=== PATIENT | female | born 1990 | race Caucasian/White ===

== ENCOUNTER 2016-09-04 22:53 | Emergency (ER) | payer OTHER ==
[2016-09-04] MEDS ORDERED: Ondansetron INJ* 2 MG/ML VIAL IV ONE (23:33)
[2016-09-04] MEDS ORDERED: NS 0.9% 1000 ML* 1,000 ML IV ONE (23:33)
[2016-09-05 00:04] LABS: Hematocrit 38 % (35-47); Hemoglobin 13.3 g/dl (12.0-16.0); Mean Corpuscular HGB Conc 35 g/dl (31-36); Mean Corpuscular Hemoglobin 30 pg (27-31); Mean Corpuscular Volume 87 fL (80-97); Mean Platelet Volume 9 um3 (7.4-10.4); Red Cell Distribution Width 13 % (10.5-15); White Blood Count 7.8 10^3/ul (3.5-10.8)
[2016-09-05 00:32] LABS: ALT 28 U/L (7-52); AST 16 U/L (13-39); Albumin 4.1 g/dL (3.2-5.2); Alkaline Phosphatase 57 U/L (34-104); Anion Gap 7 mmol/L (2-11); BUN/Creatinine Ratio 21.6 (8-20); Blood Urea Nitrogen 16 mg/dL (6-24); C Reactive Protein < 1.00 mg/L (< 5.00); CO2 Carbon Dioxide 22 mmol/L (22-32); Calcium 9.1 mg/dL (8.6-10.3); Chloride 107 mmol/L (101-111); EGFR Non-African American 96.4 (>60); Globulin 2.1 g/dL (2-4); Glucose 96 mg/dL (70-100); Lipase 17 U/L (11.0-82.0); Potassium 3.6 mmol/L (3.5-5.0); Sodium 136 mmol/L (133-145); Total Protein 6.2 g/dL (6.4-8.9)
--- NOTE | 2016-09-05 00:49 | ED ---
Oswaldo Otto Erika, scribed for Toby Mathew MD on 09/04/16 at 2346 . HPI Chest Pain - HPI Summary HPI Summary: Patient is a 25-year-old female presenting to the ED with c/o lateral chest pain bilaterally for the past few days. Pt reports she took percocet for the pain, which she had been prescribed 2 weeks ago after concussion and headache. Pain is aggravated by deep breathing. Today, pt developed headache, epigastric pain, and nausea. At 22:00, pt began vomiting, and has vomited 4x since then. Pt denies known fever and diarrhea. She does report she had gastroenteritis last week. - History of Current Complaint Chief Complaint: EDAbdPain Time Seen by Provider: 09/04/16 23:29 Hx Obtained From: Patient, Family/Director Religious Education - Mother Onset/Duration: Started Days Ago, Atraumatic, Still Present Timing: Constant Current Severity: Moderate Pain Intensity: 8 Pain Scale Used: 0-10 Numeric Chest Pain Location: Left Lateral, Right Lateral Chest Pain Radiates: Yes Chest Pain Radiates To:: Epigastric Aggravating Factor(s): Deep Breaths Associated Signs and Symptoms: Positive: Headaches, Nausea, Vomiting - Additional Pertinent History Primary Care Physician: [id number] - Allergy/Home Medications Allergies/Adverse Reactions: Allergies Allergy/AdvReac Type Severity Reaction Status Date / Time CI Pigment Blue 63 Allergy Hives Verified 08/22/16 11:13 [From Tamiflu] Miconazole [From Monistat] Allergy Rash Verified 08/22/16 11:13 Oseltamivir [From Tamiflu] Allergy Hives Verified 08/22/16 11:13 keflex Allergy Hives Uncoded 08/22/16 11:13 PMH/Surg Hx/FS Hx/Imm Hx Endocrine/Hematology History: Denies: Hx Diabetes, Hx Thyroid Disease Cardiovascular History: Reports: Other Cardiovascular Problems/Disorders - murmer Denies: Hx Hypertension, Hx Pacemaker/ICD Respiratory History: Denies: Hx Asthma, Hx Chronic Obstructive Pulmonary Disease (COPD) GI History: Denies: Hx Ulcer History: Denies: Hx Renal Disease Musculoskeletal History: Denies: Hx Scoliosis Sensory History: Denies: Hx Hearing Aid Neurological History: Reports: Hx Seizures, Other Neuro Impairments/Disorders - brain tumor - has appointment for treatment 11/07/2015 Psychiatric History: Denies: Hx Anxiety, Hx Panic Disorder - Surgical History Surgery Procedure, Year, and Place: tonsillectomy, tumor removed from temporal lobe of brain (01/04/16) Infectious Disease History: No Infectious Disease History: Denies: Hx Clostridium Difficile, Hx Hepatitis, Hx Human Immunodeficiency Virus (HIV), Hx of Known/Suspected MRSA, Hx Shingles, Hx Tuberculosis, Traveled Outside the [place] in Last 30 Days - Family History Known Family History: Positive: Cardiac Disease, Hypertension, Diabetes, Other - Denies FHx of MRSA - Social History Alcohol Use: Occasionally Hx Substance Use: No Substance Use Type: Reports: None Hx Tobacco Use: Yes Smoking Status (MU): Former Smoker Type: Cigarettes Amount Used/How Often: 1 pk/wk Have You Smoked in the Last Year: Yes Review of Systems Negative: Fever Positive: Chest Pain Positive: Abdominal Pain, Vomiting, Nausea. Negative: Diarrhea Positive: Headache All Other Systems Reviewed And Are Negative: Yes Physical Exam Triage Information Reviewed: Yes Vital Signs On Initial Exam: Initial Vitals Temp Pulse Resp BP Pulse Ox 98.8 F 68 18 107/64 99 09/04/16 22:58 09/04/16 22:58 09/04/16 22:58 09/04/16 22:58 09/04/16 22:58 Vital Signs Reviewed: Yes Appearance: Positive: Well-Appearing, No Pain Distress Skin: Positive: Warm Head/Face: Positive: Normal Head/Face Inspection Eyes: Positive: Normal ENT: Positive: Hearing grossly normal Neck: Positive: Supple Respiratory/Lung Sounds: Positive: Clear to Auscultation, Breath Sounds Present Cardiovascular: Positive: Normal, RRR Abdomen Description: Positive: Nontender, Soft Bowel Sounds: Positive: Present Musculoskeletal: Positive: Strength/ROM Intact Neurological: Positive: Alert, Oriented to Person Place, Time Psychiatric: Positive: Normal Diagnostics - Vital Signs Vital Signs Temp Pulse Resp BP Pulse Ox 09/04/16 22:58 98.8 F 68 18 107/64 99 - Laboratory Lab Results: Lab Results 09/04/16 09/04/16 Range/Units 23:47 23:47 WBC 7.8 (3.5-10.8) 10^3/ul RBC 4.40 (4.0-5.4) 10^6/ul Hgb 13.3 (12.0-16.0) g/dl Hct 38 (35-47) % MCV 87 (80-97) fL MCH 30 (27-31) pg MCHC 35 (31-36) g/dl RDW 13 (10.5-15) % Plt Count 168 (150-450) 10^3/ul MPV 9 (7.4-10.4) um3 Neut % (Auto) 57.3 (38-83) % Lymph % (Auto) 29.7 (25-47) % [place] % (Auto) 7.1 (1-9) % Eos % (Auto) 5.1 (0-6) % Baso % (Auto) 0.8 (0-2) % Absolute Neuts (auto) 4.5 (1.5-7.7) 10^3/ul Absolute Lymphs (auto) 2.3 (1.0-4.8) 10^3/ul Absolute Monos (auto) 0.6 (0-0.8) 10^3/ul Absolute Eos (auto) 0.4 (0-0.6) 10^3/ul Absolute Basos (auto) 0.1 (0-0.2) 10^3/ul Absolute Nucleated RBC 0 10^3/ul Nucleated RBC % 0 Sodium 136 (133-145) mmol/L Potassium 3.6 (3.5-5.0) mmol/L Chloride 107 (101-111) mmol/L Carbon Dioxide 22 (22-32) mmol/L Anion Gap 7 (2-11) mmol/L BUN 16 (6-24) mg/dL Creatinine 0.74 (0.51-0.95) mg/dL Est GFR ( Amer) 124.0 (>60) Est GFR (Non-Af Amer) 96.4 (>60) BUN/Creatinine Ratio 21.6 H (8-20) Glucose 96 (70-100) mg/dL Calcium 9.1 (8.6-10.3) mg/dL Magnesium 2.0 (1.9-2.7) mg/dL Total Bilirubin 0.30 (0.2-1.0) mg/dL AST 16 (13-39) U/L ALT 28 (7-52) U/L Alkaline Phosphatase 57 (34-104) U/L C-Reactive Protein < 1.00 (< 5.00) mg/L Total Protein 6.2 L (6.4-8.9) g/dL Albumin 4.1 (3.2-5.2) g/dL Globulin 2.1 (2-4) g/dL Albumin/Globulin Ratio 2.0 (1-3) Lipase 17 (11.0-82.0) U/L Beta HCG, Quant < 0.60 mIU/mL Result Diagrams: 09/04/16 23:47 09/04/16 23:47 Lab Statement: Any lab studies that have been ordered have been reviewed, and results considered in the medical decision making process. Re-Evaluation - Re-Evaluation First Eval Re-Evaluation Time: 00:48 Change: Improved Chest Pain Course/Dx - Course Assessment/Plan: A 25 y/o F presents to the ED with a CC of vomiting and abdominal pain. Pt was given zofran and IV fluids in the ED, and feels improved. Pt will be discharged with follow up from her PCP - Diagnoses Provider Diagnoses: Vomiting Discharge - Discharge Plan Condition: Improved Disposition: HOME Patient Education Materials: Acute Nausea and Vomiting (ED) Referrals: Marielle Turner DO [Primary Care Provider] - The documentation as recorded by the Oswaldo gracia Erika accurately reflects the service I personally performed and the decisions made by , Toby Mathew MD.
[2016-09-05 02:39] VITALS: BP 94/48
== END 2016-09-05 02:39 | disposition home or self-care (01) ==
LOC: ED 22:53
DX: R11.2 Nausea with vomiting, unspecified (principal); R07.9 Chest pain, unspecified; R51 Headache; Z87.891 Personal history of nicotine dependence; R10.9 Unspecified abdominal pain
CPT/HCPCS: 36415; 80053; 83690; 83735; 84702; 85025; 86140; 99283; J2405

== ENCOUNTER 2016-10-25 21:22 | Emergency (ER) | payer OTHER ==
[2016-10-25 21:30] VITALS: BP 120/68
== END 2016-10-25 22:43 | disposition left against medical advice (07) ==
LOC: ED 21:22
DX: T78.40XA Allergy, unspecified, initial encounter (principal); X58.XXXA Exposure to other specified factors, initial encounter; Z53.21 Procedure and treatment not carried out due to patient leaving prior to being seen by health care provider

== ENCOUNTER 2016-11-02 10:04 | Emergency (ER) | payer OTHER ==
[2016-11-02] MEDS ORDERED: Ondansetron INJ* 2 MG/ML VIAL IV ONE (10:37)
[2016-11-02] MEDS ORDERED: NS 0.9% 1000 ML* 1,000 ML IV ONE (10:37)
[2016-11-02] MEDS ORDERED: Morphine INJ* 4 MG/ML 1 ML SYRINGE IV ONE (10:37)
[2016-11-02 11:01] LABS: Hematocrit 41 % (35-47); Hemoglobin 14.3 g/dl (12.0-16.0); Mean Corpuscular HGB Conc 35 g/dl (31-36); Mean Corpuscular Hemoglobin 31 pg (27-31); Mean Corpuscular Volume 90 fL (80-97); Mean Platelet Volume 9 um3 (7.4-10.4); Red Blood Count 4.58 10^6/ul (4.0-5.4); Red Cell Distribution Width 12 % (10.5-15); White Blood Count 5.1 10^3/ul (3.5-10.8)
[2016-11-02 11:06] LABS: Urine Bilirubin Negative (Negative); Urine Glucose Negative (Negative); Urine Nitrite Negative (Negative)
[2016-11-02 11:19] LABS: ALT 11 U/L (7-52); AST 11 U/L (13-39); Albumin 4.7 g/dL (3.2-5.2); Alkaline Phosphatase 49 U/L (34-104); Amylase 30 U/L (29-103); Anion Gap 9 mmol/L (2-11); BUN/Creatinine Ratio 15.8 (8-20); Blood Urea Nitrogen 12 mg/dL (6-24); C Reactive Protein < 1.00 mg/L (< 5.00); CO2 Carbon Dioxide 23 mmol/L (22-32); Chloride 107 mmol/L (101-111); EGFR African American 119.3 (>60); EGFR Non-African American 92.7 (>60); Globulin 2.5 g/dL (2-4); Glucose 88 mg/dL (70-100); Lipase 11 U/L (11.0-82.0); Potassium 3.6 mmol/L (3.5-5.0); Sodium 139 mmol/L (133-145); Total Protein 7.2 g/dL (6.4-8.9)
[2016-11-02] MEDS ORDERED: Iohexol 300* (CONTRAST) 10 ML SDV IV ONE (11:58)
[2016-11-02] MEDS ORDERED: Ketorolac INJ* 30 MG/ML 1 ML VIAL IM ONE (14:31)
[2016-11-02] MEDS ORDERED: Ketorolac INJ* 30 MG/ML 1 ML VIAL IV PUSH ONE (14:35)
--- NOTE | 2016-11-02 14:58 | RAD ---
INDICATION: Abdominal pain COMPARISON: CT abdomen pelvis January 01, 2014 TECHNIQUE: Axial source images were obtained from the hemidiaphragms to the symphysis pubis following administration of oral and intravenous contrast. 81 mL Omnipaque 300 was utilized. Coronal and sagittal reconstructed images were acquired. Lung bases: The lung bases are clear. Liver: The liver is normal in size. There are no masses. There is no ductal dilatation. Gallbladder: There are no calcified gallstones. There is no evidence of wall thickening or pericholecystic fluid. Spleen: The spleen is normal in size. There are no masses. Pancreas: There is no focal pancreatic mass or ductal dilatation. Adrenal glands: There is no evidence of adrenal mass. Kidneys: The kidneys are normal in size and position. There are prompt nephrograms and there is prompt excretion bilaterally. There are no renal parenchymal masses. There is no evidence of nephrolithiasis. Adenopathy: There is no evidence of adenopathy by size criteria. Fluid collections: There are no free or localized fluid collections. Vessels:There are no significant atherosclerotic changes involving the aorta. There is no focal aneurysm. The iliac vessels are normal in caliber. The IVC appears normal. GI tract: There are no acute CT bowel findings. There is no obstruction. The stomach and small bowel appear normal. The lower GI tract is remarkable for scattered diverticula. There is no CT evidence of acute diverticulitis.. The cecum, ileocecal valve, and terminal ileum appear normal. The appendix is visualized and appear normal. Pelvic organs: The uterus and adnexa appear normal Bladder: There are no bladder masses. Abdominal and pelvic soft tissues: The extraperitoneal abdominal and pelvic soft tissues appear normal.. Osseous structures: There are no acute osseous findings. Other: None IMPRESSION: NO ACUTE CT FINDINGS. NO MASS OR INFLAMMATORY CHANGE. SCATTERED DIVERTICULA. NORMAL APPENDIX.
[2016-11-02 16:40] VITALS: BP 96/54
--- NOTE | 2016-11-18 20:50 | ED ---
Noah Otto Adam, scribed for Sebastien Coreas MD on 11/02/16 at 1019 . Abdominal Pain/Female - HPI Summary HPI Summary: Pt is a 26 year old female presenting with abdominal pain. She states that the pain radiates from her umbilicus to her right side. It is worse when she straightens out her body, which causes her to feel like "someone is pulling a string" in her central abdomen. The pain set on last night and was worse this morning. It is 9/10 in severity. She has never had this pain before. She also reports nausea, vomiting, and watery diarrhea. Pt smokes tobacco. She denies alcohol and drugs. 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 She is not on blood-thinners. She is currently in her MP. - History of Current Complaint Chief Complaint: EDAbdPain Stated Complaint: ABD PAIN/VOMITING Time Seen by Provider: 11/02/16 10:17 Hx Obtained From: Patient Hx Last Menstrual Period: Currently in it (11/02/16) Onset/Duration: Gradual Onset, Lasting Days, Still Present Timing: Constant Severity Initially: Mild Severity Currently: Moderate Pain Intensity: 9 Pain Scale Used: 0-10 Numeric Location: Umbilical Radiates: Yes Radiates to: Flank - Right Character: Other: - "Feels like someone pulling a string" Aggravating Factor(s): Other: - Straightening body out Alleviating Factor(s): Nothing Associated Signs and Symptoms: Positive: Nausea, Vomiting, Diarrhea Allergies/Adverse Reactions: Allergies Allergy/AdvReac Type Severity Reaction Status Date / Time Amoxicillin Allergy Hives Verified 11/02/16 10:26 CI Pigment Blue 63 Allergy Hives Verified 11/02/16 10:26 [From Tamiflu] Miconazole [From Monistat] Allergy Rash Verified 11/02/16 10:26 Oseltamivir [From Tamiflu] Allergy Hives Verified 11/02/16 10:26 keflex Allergy Hives Uncoded 11/02/16 10:26 PMH/Surg Hx/FS Hx/Imm Hx Endocrine/Hematology History: Denies: Hx Diabetes, Hx Thyroid Disease Cardiovascular History: Reports: Other Cardiovascular Problems/Disorders - murmur Denies: Hx Hypertension, Hx Pacemaker/ICD Respiratory History: Denies: Hx Asthma, Hx Chronic Obstructive Pulmonary Disease (COPD) GI History: Denies: Hx Ulcer History: Denies: Hx Renal Disease Musculoskeletal History: Denies: Hx Scoliosis Sensory History: Denies: Hx Hearing Aid Neurological History: Reports: Hx Seizures, Other Neuro Impairments/Disorders - brain tumor - has appointment for treatment 11/07/2015 Psychiatric History: Denies: Hx Anxiety, Hx Panic Disorder - Cancer History Cancer Type, 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 - Surgical History Surgery Procedure, Year, and Place: tonsillectomy, tumor removed from temporal lobe of brain (01/04/16) Infectious Disease History: No Infectious Disease History: Denies: Hx Clostridium Difficile, Hx Hepatitis, Hx Human Immunodeficiency Virus (HIV), Hx of Known/Suspected MRSA, Hx Shingles, Hx Tuberculosis, Traveled Outside the [place] in Last 30 Days - Family History Known Family History: Positive: Cardiac Disease, Hypertension, Diabetes, Other - Denies FHx of MRSA - Social History Occupation: Employed Full-time Lives: With Family - Mother Alcohol Use: None Hx Substance Use: No Substance Use Type: Reports: None Hx Tobacco Use: Yes Smoking Status (MU): Current Every Day Smoker Type: Cigarettes Amount Used/How Often: 1 pk/wk Have You Smoked in the Last Year: Yes Review of Systems Positive: Chills Positive: Abdominal Pain, Vomiting, Diarrhea, Nausea Positive: frequency All Other Systems Reviewed And Are Negative: Yes Physical Exam - Summary Physical Exam Summary: VITAL SIGNS: Reviewed. GENERAL: Patient is a well developed and nourished female who is lying comfortable in the stretcher. Patient is not in any acute respiratory distress. HEAD AND FACE: Normocephalic and atraumatic. EYES: PERRLA, EOMI x 2, No injected conjunctiva. EARS: Hearing grossly intact. Ear canals and tympanic membranes are WNL. MOUTH: Oropharynx within normal limits. NECK: Supple, trachea is midline, no adenopathy, no JVD. CHEST: Symmetric, no tenderness at palpation LUNGS: Clear to auscultation bilaterally. No wheezing or crackles. CVS: RRR,, S1 and S2 present, no murmurs or gallops appreciated. ABDOMEN: Soft, RLQ tenderness. No signs of distention. Positive bowel sounds. No rebound no guarding, and no masses palpated. No abdominal bruit or pulsations. EXTREMITIES: FROM in all major joints, no edema, no cyanosis or clubbing. NEURO: Alert and oriented x 3. No acute neurological deficits. Speech is normal. SKIN: Dry and warm Triage Information Reviewed: Yes Vital Signs On Initial Exam: Initial Vitals Temp Pulse Resp BP Pulse Ox 99.8 F 85 20 114/79 100 11/02/16 10:08 11/02/16 10:08 11/02/16 10:08 11/02/16 10:08 11/02/16 10:08 Vital Signs Reviewed: Yes Diagnostics - Vital Signs Vital Signs Temp Pulse Resp BP Pulse Ox 11/02/16 10:08 99.8 F 85 20 114/79 100 - Laboratory Lab Results: Lab Results 11/02/16 11/02/16 Range/Units 10:33 10:39 WBC 5.1 (3.5-10.8) 10^3/ul RBC 4.58 (4.0-5.4) 10^6/ul Hgb 14.3 (12.0-16.0) g/dl Hct 41 (35-47) % MCV 90 (80-97) fL MCH 31 (27-31) pg MCHC 35 (31-36) g/dl RDW 12 (10.5-15) % Plt Count 148 L (150-450) 10^3/ul MPV 9 (7.4-10.4) um3 Neut % (Auto) 62.6 (38-83) % Lymph % (Auto) 25.7 (25-47) % [place] % (Auto) 7.3 (1-9) % Eos % (Auto) 3.7 (0-6) % Baso % (Auto) 0.7 (0-2) % Absolute Neuts (auto) 3.2 (1.5-7.7) 10^3/ul Absolute Lymphs (auto) 1.3 (1.0-4.8) 10^3/ul Absolute Monos (auto) 0.4 (0-0.8) 10^3/ul Absolute Eos (auto) 0.2 (0-0.6) 10^3/ul Absolute Basos (auto) 0 (0-0.2) 10^3/ul Absolute Nucleated RBC 0 10^3/ul Nucleated RBC % 0.1 Urine Color Straw Urine Appearance Clear Urine pH 7.0 (5-9) Ur Specific [place] 1.005 L (1.010-1.030) Urine Protein Negative (Negative) Urine Ketones Negative (Negative) Urine Blood Negative (Negative) Urine Nitrate Negative (Negative) Urine Bilirubin Negative (Negative) Urine Urobilinogen Negative (Negative) Ur Leukocyte Esterase Negative (Negative) Urine Glucose Negative (Negative) Result Diagrams: 11/02/16 10:33 11/02/16 10:33 Lab Statement: Any lab studies that have been ordered have been reviewed, and results considered in the medical decision making process. - CT A/P CT Interpretation Completed By: Radiologist - IMPRESSION: NO ACUTE CT FINDINGS. NO MASS OR INFLAMMATORY CHANGE. SCATTERED DIVERTICULA. NORMAL APPENDIX. Abdominal Pain Fem Course/Dx - Course Course Of Treatment: Pt is a 26 year old female presenting with abdominal pain. She states that the pain radiates from her umbilicus to her right side. It is worse when she straightens out her body, which causes her to feel like "someone is pulling a string" in her central abdomen. The pain set on last night and was worse this morning. It is 9/10 in severity. She has never had this pain before. She also reports nausea, vomiting, and watery diarrhea. Pt smokes tobacco. She denies alcohol and drugs. 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 She is not on blood-thinners. She is currently in her MP. Blood work wnl. UA shows no UTI. Abdominal and pelvic CT impression: No acute findings, no masses or inflammatory findings. Scattered diverticula. Normal appendix. In the ED course she was given IV fluids, morphine and toradol for the pain. After medications patient reports improvement of symptoms. She was offered a pelvic exam or pelvic U/S but she declined. She reports she is feeling better and will f/u with PMD. She will be given Naproxen for pain. I discussed all the findings and test results with the patient. Patient was instructed to return to the emergency room immediately if any of the symptoms return or worsens. They were explained the possibility of an early abdominal pathology which was not detected at this time despite the physical exam and testing. They understand and agree. Abdominal exam before discharge: Soft, NT. No signs of distention. BS present. No rebound no guarding, and no masses palpated. Patient is alert and oriented and hemodynamically stable. Patient is to follow up with primary care physician in the next 2 to 3 days. Patient agree and understands. - Diagnoses Differential Diagnosis: Positive: Appendicitis, Constipation, Diverticulitis, Ovarian Cyst, Renal Colic Provider Diagnoses: Abdominal pain Discharge - Discharge Plan Condition: Stable Disposition: HOME Prescriptions: Naproxen TAB* [Naprosyn TAB*] 375 mg PO BID PRN #20 tab PRN Reason: Pain - Mild To Moderate Patient Education Materials: Abdominal Pain (ED) Referrals: Meryl Cadena [Primary Care Provider] - Additional Instructions: Follow up with Meryl Cadena. The documentation as recorded by the Noah gracia Adam accurately reflects the service I personally performed and the decisions made by , Sebastien Coreas MD.
== END 2016-11-02 16:40 | disposition home or self-care (01) ==
LOC: ED 10:04
DX: R10.9 Unspecified abdominal pain (principal); R11.2 Nausea with vomiting, unspecified; R19.7 Diarrhea, unspecified; Z87.891 Personal history of nicotine dependence; R68.83 Chills (without fever)
CPT/HCPCS: 36415; 74177; 80053; 81003; 82140; 82150; 83605; 83690; 84702; 85025; 86140; 99283; J1885; J2270; J2405; Q9967

== ENCOUNTER 2016-12-17 17:56 | Emergency (ER) | payer OTHER ==
[2016-12-17] MEDS ORDERED: Aspirin Low Dose CHEW TAB* 81 MG PO ONE (18:49)
[2016-12-17 18:56] LABS: Hematocrit 42 % (35-47); Hemoglobin 14.6 g/dl (12.0-16.0); Mean Corpuscular HGB Conc 35 g/dl (31-36); Mean Corpuscular Hemoglobin 31 pg (27-31); Mean Corpuscular Volume 89 fL (80-97); Mean Platelet Volume 9 um3 (7.4-10.4); Red Blood Count 4.72 10^6/ul (4.0-5.4); Red Cell Distribution Width 13 % (10.5-15); White Blood Count 7.4 10^3/ul (3.5-10.8)
[2016-12-17 19:12] LABS: ALT 18 U/L (7-52); AST 13 U/L (13-39); Albumin 4.6 g/dL (3.2-5.2); Alkaline Phosphatase 57 U/L (34-104); Anion Gap 8 mmol/L (2-11); BUN/Creatinine Ratio 14.4 (8-20); Blood Urea Nitrogen 13 mg/dL (6-24); CO2 Carbon Dioxide 22 mmol/L (22-32); Calcium 9.6 mg/dL (8.6-10.3); Chloride 109 mmol/L (101-111); EGFR African American 98.1 (>60); EGFR Non-African American 76.3 (>60); Globulin 2.5 g/dL (2-4); Glucose 76 mg/dL (70-100); Potassium 3.4 mmol/L (3.5-5.0); Sodium 139 mmol/L (133-145); Total Protein 7.1 g/dL (6.4-8.9)
[2016-12-17] MEDS ORDERED: Iohexol 350* (CONTRAST) 500 ML MDV IV ONE (19:22)
[2016-12-17 19:58] VITALS: BP 92/66
--- NOTE | 2016-12-17 20:04 | RAD ---
HISTORY: Pleuritic chest pain COMPARISONS: September 30, 2011 TECHNIQUE: Multiple contiguous axial CT scans of the chest were obtained after the administration of nonionic intravenous contrast, timed to the pulmonary arterial phase of contrast enhancement.. Coronal and sagittal multiplanar reformations are also submitted for review. FINDINGS: NECK AND THYROID: The lower neck and thyroid are unremarkable. CHEST WALL: There is no lower cervical, axillary, or supraclavicular lymphadenopathy by size criteria. HEART AND PERICARDIUM: The heart is unremarkable. AORTA AND PULMONARY VASCULATURE: There is no pulmonary arterial filling defect to suggest pulmonary embolism. There is no linear filling defect within the aorta to suggest aortic dissection. MEDIASTINUM: There is no mediastinal lymphadenopathy by size criteria. FREDY: There is no hilar lymphadenopathy by size criteria. AIRWAY AND ESOPHAGUS: The airway is unremarkable, without endobronchial filling defect. The esophagus is grossly normal. LUNG PARENCHYMA: The lungs are clear. PLEURA: No pleural abnormalities are noted. UPPER ABDOMEN: The upper abdomen is unremarkable. BONES AND SOFT TISSUES: No bone or soft tissue abnormalities are noted. OTHER: None. IMPRESSION: NO PULMONARY ARTERIAL FILLING DEFECT TO SUGGEST PULMONARY EMBOLISM.
--- NOTE | 2016-12-17 21:36 | ED ---
Maira Otto Janilya, scribed for Eliud Asher MD on 12/17/16 at 1844 . HPI Chest Pain - HPI Summary HPI Summary: A 26 y/o female came in to [facility] presenting w/ a gradual onset of constant mid- sternal CP starting last night at 2100. Pain is described as sharp and stabbing pain. In addition, pt reports BENNETT and SOB. Pt states it hurts to take a breath and it feels like an anxiety attack. It hurts to move her arms. PSHx brain tumor removed last year. - History of Current Complaint Chief Complaint: EDChestPainROMI Time Seen by Provider: 12/17/16 18:36 Hx Obtained From: Patient Onset/Duration: Started Days Ago, Atraumatic, Still Present Timing: Constant Initial Severity: Moderate Current Severity: Moderate Pain Intensity: 8 Pain Scale Used: 0-10 Numeric Chest Pain Location: Diffuse Chest Pain Radiates: No Character: Sharp/Stabbing Aggravating Factor(s): Nothing Alleviating Factor(s): Nothing Associated Signs and Symptoms: Positive: Chest Pain, Shortness of Breath - Additional Pertinent History Primary Care Physician: [id number] - Allergy/Home Medications Allergies/Adverse Reactions: Allergies Allergy/AdvReac Type Severity Reaction Status Date / Time Amoxicillin Allergy Hives Verified 12/17/16 18:27 CI Pigment Blue 63 Allergy Hives Verified 12/17/16 18:27 [From Tamiflu] Miconazole [From Monistat] Allergy Rash Verified 12/17/16 18:27 Oseltamivir [From Tamiflu] Allergy Hives Verified 12/17/16 18:27 keflex Allergy Hives Uncoded 12/17/16 18:27 PMH/Surg Hx/FS Hx/Imm Hx Previously Healthy: Yes Endocrine/Hematology History: Denies: Hx Diabetes, Hx Thyroid Disease Cardiovascular History: Reports: Other Cardiovascular Problems/Disorders - murmur Denies: Hx Hypertension, Hx Pacemaker/ICD Respiratory History: Denies: Hx Asthma, Hx Chronic Obstructive Pulmonary Disease (COPD) GI History: Denies: Hx Ulcer History: Denies: Hx Renal Disease Musculoskeletal History: Denies: Hx Scoliosis Sensory History: Denies: Hx Hearing Aid Neurological History: Reports: Hx Seizures, Other Neuro Impairments/Disorders - brain tumor - has appointment for treatment 11/07/2015 Psychiatric History: Denies: Hx Anxiety, Hx Panic Disorder - Cancer History Cancer Type, 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 - Surgical History Surgery Procedure, Year, and Place: tonsillectomy, tumor removed from temporal lobe of brain (01/04/16) Infectious Disease History: Yes Infectious Disease History: Denies: Hx Clostridium Difficile, Hx Hepatitis, Hx Human Immunodeficiency Virus (HIV), Hx of Known/Suspected MRSA, Hx Shingles, Hx Tuberculosis, Traveled Outside the [place] in Last 30 Days - Family History Known Family History: Positive: Cardiac Disease, Hypertension, Diabetes, Other - Denies FHx of MRSA - Social History Alcohol Use: None Hx Substance Use: No Substance Use Type: Reports: None Hx Tobacco Use: Yes Smoking Status (MU): Current Every Day Smoker Type: Cigarettes Amount Used/How Often: 1 pk/wk Have You Smoked in the Last Year: Yes Review of Systems Positive: Chest Pain Positive: Shortness Of Breath Positive: Headache All Other Systems Reviewed And Are Negative: Yes Physical Exam Triage Information Reviewed: Yes Vital Signs On Initial Exam: Initial Vitals Temp Pulse Resp BP Pulse Ox 98.2 F 91 16 121/69 100 12/17/16 18:01 12/17/16 18:01 12/17/16 18:01 12/17/16 18:01 12/17/16 18:01 Vital Signs Reviewed: Yes Appearance: Positive: Well-Appearing, No Pain Distress Skin: Positive: Warm, Skin Color Reflects Adequate Perfusion, Dry Head/Face: Positive: Normal Head/Face Inspection Eyes: Positive: Normal ENT: Positive: Normal ENT inspection Neck: Positive: Supple, Nontender Respiratory/Lung Sounds: Positive: Clear to Auscultation, Breath Sounds Present Cardiovascular: Positive: RRR Abdomen Description: Positive: Nontender, Soft Bowel Sounds: Positive: Present Musculoskeletal: Positive: Normal Neurological: Positive: Normal Psychiatric: Positive: Affect/Mood Appropriate Diagnostics - Vital Signs Vital Signs Temp Pulse Resp BP Pulse Ox 12/17/16 18:28 98.2 F 87 20 119/63 99 12/17/16 18:01 98.2 F 91 16 121/69 100 - Laboratory Lab Results: Lab Results 12/17/16 12/17/16 12/17/16 Range/Units 18:40 18:40 18:40 WBC 7.4 (3.5-10.8) 10^3/ul RBC 4.72 (4.0-5.4) 10^6/ul Hgb 14.6 (12.0-16.0) g/dl Hct 42 (35-47) % MCV 89 (80-97) fL MCH 31 (27-31) pg MCHC 35 (31-36) g/dl RDW 13 (10.5-15) % Plt Count 182 (150-450) 10^3/ul MPV 9 (7.4-10.4) um3 Neut % (Auto) 53.3 (38-83) % Lymph % (Auto) 31.6 (25-47) % Crenshaw % (Auto) 8.0 (1-9) % Eos % (Auto) 6.1 H (0-6) % Baso % (Auto) 1.0 (0-2) % Absolute Neuts (auto) 3.9 (1.5-7.7) 10^3/ul Absolute Lymphs (auto) 2.3 (1.0-4.8) 10^3/ul Absolute Monos (auto) 0.6 (0-0.8) 10^3/ul Absolute Eos (auto) 0.5 (0-0.6) 10^3/ul Absolute Basos (auto) 0.1 (0-0.2) 10^3/ul Absolute Nucleated RBC 0.01 10^3/ul Nucleated RBC % 0.1 Sodium 139 (133-145) mmol/L Potassium 3.4 L (3.5-5.0) mmol/L Chloride 109 (101-111) mmol/L Carbon Dioxide 22 (22-32) mmol/L Anion Gap 8 (2-11) mmol/L BUN 13 (6-24) mg/dL Creatinine 0.90 (0.51-0.95) mg/dL Est GFR ( Amer) 98.1 (>60) Est GFR (Non-Af Amer) 76.3 (>60) BUN/Creatinine Ratio 14.4 (8-20) Glucose 76 (70-100) mg/dL Lactic Acid 1.1 (0.5-2.0) mmol/L Calcium 9.6 (8.6-10.3) mg/dL Total Bilirubin 0.50 (0.2-1.0) mg/dL AST 13 (13-39) U/L ALT 18 (7-52) U/L Alkaline Phosphatase 57 (34-104) U/L Troponin I 0.00 (<0.04) ng/mL Total Protein 7.1 (6.4-8.9) g/dL Albumin 4.6 (3.2-5.2) g/dL Globulin 2.5 (2-4) g/dL Albumin/Globulin Ratio 1.8 (1-3) Beta HCG, Quant < 0.60 mIU/mL Result Diagrams: 12/17/16 18:40 12/17/16 18:40 Lab Statement: Any lab studies that have been ordered have been reviewed, and results considered in the medical decision making process. - CT CTA chest/thorax CT Interpretation: Positive (See Comments) - IMPRESSION: NO PULMONARY ARTERIAL FILLING DEFECT TO SUGGEST PULMONARY EMBOLISM. CT Interpretation Completed By: Radiologist - EKG 1809 Cardiac Rate: NL - [address] Segment: Non-Specific EKG Interpretation: Arrhythmia Chest Pain Course/Dx - Course Course Of Treatment: Ms. Watt presented with about 22 hours of sharp midsternal chest pain. She was R/U'd for PE or cardiac injury. - Diagnoses Provider Diagnoses: Chest wall pain Discharge - Discharge Plan Condition: Stable Disposition: HOME Patient Education Materials: Chest Wall Pain (ED) Referrals: Meryl Cadena [Primary Care Provider] - 2 Days The documentation as recorded by the Maira gracia Janilya accurately reflects the service I personally performed and the decisions made by me, Eliud Asher MD.
== END 2016-12-17 20:56 | disposition home or self-care (01) ==
LOC: ED 17:56
DX: R07.89 Other chest pain (principal); R06.02 Shortness of breath
CPT/HCPCS: 36415; 71275; 80053; 83605; 84484; 84702; 85025; 93005; 99282; Q9967

== ENCOUNTER 2017-07-30 11:34 | Emergency (ER) | payer OTHER ==
[2017-07-30 11:46] VITALS: BP 123/73
--- NOTE | 2017-07-30 13:08 | RAD ---
Indication: Head injury. CT of the brain was performed without IV contrast. Comparison is made with previous exam dated August 22, 2016. Ventricular structures are midline. No midline shift is noted. Patient status post left craniotomy. Left temporal lobe encephalomalacia is unchanged from previous exam. No intracranial mass or hemorrhage is otherwise noted. IMPRESSION: No acute changes are noted. Encephalomalacia in the left temporal lobe from left craniotomy. This is stable since prior exam.
--- NOTE | 2017-07-30 14:40 | ED ---
Head Injury - HPI Summary HPI Summary: Patient presents to the ED with CC of BENNETT and concern for intracranial abnormality after hitting her head on a metal bar prior to arriva. Denies LOC. Denies confusion. Notes to a 5/10 BENNETT located to the left side. There is a cephalohematoma noted to the left side. She has previous had a tumor removed with a left temporal craniotomy. She denies visual changes, N/V, SOB, chest pain. Denies photophobia. - History Of Current Complaint Chief Complaint: EDHeadInjury Stated Complaint: HEAD INJURY/HEADACHE/NAUSEA Time Seen by Provider: 07/30/17 11:49 Hx Obtained From: Patient Hx Last Menstrual Period: Currently in it (11/02/16) Mechanism Of Injury: Blunt Trauma Onset/Duration: Started Hours Ago Onset of Pain: Immediate Severity Currently: Mild Severity Initially: Mild Pain Intensity: 9 Pain Scale Used: 0-10 Numeric Location of Head Injury: Temporal, Parietal Character: Throbbing, Pressure Aggravating Factor(s): Movement Alleviating Factor(s): Rest, Ice - Allergies/Home Medications Allergies/Adverse Reactions: Allergies Allergy/AdvReac Type Severity Reaction Status Date / Time Amoxicillin Allergy Hives Verified 12/17/16 18:27 CI Pigment Blue 63 Allergy Hives Verified 12/17/16 18:27 [From Tamiflu] Miconazole [From Monistat] Allergy Rash Verified 12/17/16 18:27 Oseltamivir [From Tamiflu] Allergy Hives Verified 12/17/16 18:27 keflex Allergy Hives Uncoded 12/17/16 18:27 PMH/Surg Hx/FS Hx/Imm Hx Previously Healthy: Yes Endocrine/Hematology History: Denies: Hx Diabetes, Hx Thyroid Disease Cardiovascular History: Reports: Other Cardiovascular Problems/Disorders - murmur Denies: Hx Hypertension, Hx Pacemaker/ICD Respiratory History: Denies: Hx Asthma, Hx Chronic Obstructive Pulmonary Disease (COPD) GI History: Denies: Hx Ulcer History: Denies: Hx Renal Disease Musculoskeletal History: Denies: Hx Scoliosis Sensory History: Denies: Hx Hearing Aid Neurological History: Reports: Hx Seizures, Other Neuro Impairments/Disorders - brain tumor - has appointment for treatment 11/07/2015 Psychiatric History: Denies: Hx Anxiety, Hx Panic Disorder - Cancer History Cancer Type, 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 - Surgical History Surgery Procedure, Year, and Place: tonsillectomy, tumor removed from temporal lobe of brain (01/04/16) - Immunization History Hx Pertussis Vaccination: No Immunizations Up to Date: Unable to Obtain/Confirm Infectious Disease History: No Infectious Disease History: Denies: Hx Clostridium Difficile, Hx Hepatitis, Hx Human Immunodeficiency Virus (HIV), Hx of Known/Suspected MRSA, Hx Shingles, Hx Tuberculosis, Traveled Outside the [place] in Last 30 Days - Family History Known Family History: Positive: None, Cardiac Disease, Hypertension, Diabetes, Other - Denies FHx of MRSA - Social History Occupation: Employed Full-time Lives: With Family Alcohol Use: None Hx Substance Use: No Substance Use Type: Reports: None Hx Tobacco Use: Yes Smoking Status (MU): Current Every Day Smoker Type: Cigarettes Amount Used/How Often: 1 pk/wk Have You Smoked in the Last Year: Yes Review of Systems Constitutional: Negative Negative: Fever, Chills, Fatigue Eyes: Negative Negative: Photophobia, Blurred Vision, Diplopia, Drainage ENT: Negative Respiratory: Negative Gastrointestinal: Negative Positive: no symptoms reported, see HPI Musculoskeletal: Negative Skin: Negative Positive: Headache All Other Systems Reviewed And Are Negative: Yes Physical Exam Triage Information Reviewed: Yes Vital Signs On Initial Exam: Initial Vitals Temp Pulse Resp BP Pulse Ox 99.2 F 95 18 123/73 99 07/30/17 11:43 07/30/17 11:43 07/30/17 11:43 07/30/17 11:43 07/30/17 11:43 Vital Signs Reviewed: Yes Appearance: Positive: Well-Appearing, Well-Nourished Skin: Positive: Warm, Skin Color Reflects Adequate Perfusion Head/Face: Positive: Cephalohematoma - left parietal Eyes: Positive: EOMI, SHELDON, Conjunctiva Clear Neck: Positive: Supple, No Lymphadenopathy Respiratory/Lung Sounds: Positive: Clear to Auscultation, Breath Sounds Present Cardiovascular: Positive: RRR, Pulses are Symmetrical in both Upper and Lower Extremities Musculoskeletal: Positive: Normal, Strength/ROM Intact Neurological: Positive: Speech Normal. Negative: Pronator Drift Present Psychiatric: Positive: Normal AVPU Assessment: Alert - Isha Coma Scale Coma Scale Total: 15 Diagnostics - Vital Signs Vital Signs Temp Pulse Resp BP Pulse Ox 07/30/17 11:43 99.2 F 95 18 123/73 99 - Laboratory Lab Statement: Any lab studies that have been ordered have been reviewed, and results considered in the medical decision making process. Head Injury Course/Dx Course Of Treatment: After discussing risks and benefits of CT scan, d/t history of craniotomy on the ispilateral side of the head injury, CT scan obtained. No pathology found. She has a MRI appt in 1 month and I have encouraged her to follow up with her neurologist. Brain rest precautions given and she is OK with plan and discharge and voices no concerns at this time. - Diagnoses Differential Diagnosis/HQI/PQRI: Concussion With LOC, Concussion Without LOC, Contusion Provider Diagnoses: Head injury Discharge - Discharge Plan Condition: Stable Disposition: HOME Patient Education Materials: Head Injury (ED) Referrals: Meryl Cadena [Primary Care Provider] - Additional Instructions: Brain rest as much as possible for the next few days If any worsening symptoms develop - return to the ED Tylenol or ibuprofen the next few days Rest and sleep as much as possible
== END 2017-07-30 13:39 | disposition home or self-care (01) ==
LOC: ED 11:34
DX: S09.90XA Unspecified injury of head, initial encounter (principal); W22.8XXA Striking against or struck by other objects, initial encounter; Y93.9 Activity, unspecified; Y92.9 Unspecified place or not applicable; F17.210 Nicotine dependence, cigarettes, uncomplicated; R51 Headache
CPT/HCPCS: 70450; 99282

== ENCOUNTER 2017-08-30 16:46 | Emergency (ER) | payer OTHER ==
[2017-08-30 16:52] VITALS: BP 131/72
--- NOTE | 2017-08-30 19:36 | RAD ---
INDICATION: Left hand injury. TECHNIQUE: 4 views of the left hand were obtained. FINDINGS: The bones are in normal alignment. No fracture is seen. Joint spaces appear maintained. IMPRESSION: NO EVIDENCE FOR FRACTURE.
--- NOTE | 2017-08-30 22:29 | ED ---
Upper Extremity Pain - HPI Summary HPI Summary: Patient presents to the ED from work s/p fall on the ice with a CC of left hand pain. There is slight ecchymosis and erythema to the ulnar side of the hand. Denies numbness, tingling, or temperature changes. Denies other complaints at this time. Denies pain in the rest of the hand or the wrist joint. Pain is 2/ 10, aggravated by nothing and relieved with ice. - History of Current Complaint Chief Complaint: EDExtremityUpper Stated Complaint: LT HAND INJURY Time Seen by Provider: 08/30/17 18:40 Hx Obtained From: Patient Hx Last Menstrual Period: Currently (11/02/16) Mechanism Of Injury: Fall From A Standing Position Onset/Duration: Started Hours Ago Timing: Constant Severity Initially: Moderate Severity Currently: Moderate Pain Location: Hand Character: Aching Aggravating Factor(s): Lifting, Flexion, Extension Alleviating Factor(s): Rest, Ice Associated Signs & Symptoms: Positive: Swelling, Bruising. Negative: Numbness/ Tingling Related History: Dominant Hand Right - Risk Factors Non-Orthopedic Risk Factor: Negative DVT Risk Factors: Negative Septic Arthritis Risk Factor: Negative Compartment Syndrome Risk Factors: Pain - Allergies/Home Medications Allergies/Adverse Reactions: Allergies Allergy/AdvReac Type Severity Reaction Status Date / Time Amoxicillin Allergy Hives Verified 12/17/16 18:27 CI Pigment Blue 63 Allergy Hives Verified 12/17/16 18:27 [From Tamiflu] Miconazole [From Monistat] Allergy Rash Verified 12/17/16 18:27 Oseltamivir [From Tamiflu] Allergy Hives Verified 12/17/16 18:27 keflex Allergy Hives Uncoded 12/17/16 18:27 PMH/Surg Hx/FS Hx/Imm Hx Previously Healthy: Yes Endocrine/Hematology History: Denies: Hx Diabetes, Hx Thyroid Disease Cardiovascular History: Reports: Other Cardiovascular Problems/Disorders - murmur Denies: Hx Hypertension, Hx Pacemaker/ICD Respiratory History: Denies: Hx Asthma, Hx Chronic Obstructive Pulmonary Disease (COPD) GI History: Denies: Hx Ulcer History: Denies: Hx Renal Disease Musculoskeletal History: Denies: Hx Scoliosis Neurological History: Reports: Hx Seizures, Other Neuro Impairments/Disorders - brain tumor - has appointment for treatment 11/07/2015 Psychiatric History: Denies: Hx Anxiety, Hx Panic Disorder - Cancer History Cancer Type, 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 - Surgical History Surgery Procedure, Year, and Place: tonsillectomy, tumor removed from temporal lobe of brain (01/04/16) - Immunization History Date of Influenza Vaccine: unknown Hx Pertussis Vaccination: No Immunizations Up to Date: Unable to Obtain/Confirm Infectious Disease History: No Infectious Disease History: Denies: Hx Clostridium Difficile, Hx Hepatitis, Hx Human Immunodeficiency Virus (HIV), Hx of Known/Suspected MRSA, Hx Shingles, Hx Tuberculosis, Traveled Outside the [place] in Last 30 Days - Family History Known Family History: Positive: None, Cardiac Disease, Hypertension, Diabetes, Other - Denies FHx of MRSA - Social History Occupation: Employed Full-time Lives: With Family Alcohol Use: None Hx Substance Use: No Substance Use Type: Reports: None Hx Tobacco Use: Yes Smoking Status (MU): Former Smoker Type: Cigarettes Amount Used/How Often: 1 pk/wk Have You Smoked in the Last Year: Yes Review of Systems Constitutional: Negative Negative: Fever, Chills, Fatigue Eyes: Negative Cardiovascular: Negative Respiratory: Negative Positive: no symptoms reported, see HPI Skin: Negative Neurological: Negative All Other Systems Reviewed And Are Negative: Yes Physical Exam Triage Information Reviewed: Yes Vital Signs On Initial Exam: Initial Vitals Temp Pulse Resp BP Pulse Ox 98.0 F 102 18 131/72 98 08/30/17 16:47 08/30/17 16:47 08/30/17 16:47 08/30/17 16:47 08/30/17 16:47 Vital Signs Reviewed: Yes Appearance: Positive: Well-Appearing, Well-Nourished Skin: Positive: Warm, Skin Color Reflects Adequate Perfusion Head/Face: Positive: Normal Head/Face Inspection Eyes: Positive: EOMI, SHELDON, Conjunctiva Clear Neck: Positive: Supple, No Lymphadenopathy Respiratory/Lung Sounds: Positive: Clear to Auscultation, Breath Sounds Present Cardiovascular: Positive: RRR, Pulses are Symmetrical in both Upper and Lower Extremities Musculoskeletal: Positive: Normal, Strength/ROM Intact Neurological: Positive: Speech Normal Psychiatric: Positive: Normal Diagnostics - Vital Signs Vital Signs Temp Pulse Resp BP Pulse Ox 08/30/17 16:47 98.0 F 102 18 131/72 98 - Laboratory Lab Statement: Any lab studies that have been ordered have been reviewed, and results considered in the medical decision making process. Course/Dx - Course Course Of Treatment: Patient evaluated for L hand pain with erythema. xray obtained with negative findings. She is OK with plan for discharge of ibuprofen and ice. She declines medication prior to discharge. - Diagnoses Provider Diagnoses: Hand contusion Discharge - Discharge Plan Condition: Stable Disposition: HOME Patient Education Materials: Contusion in Adults (ED) Referrals: Meryl Cadena [Primary Care Provider] - Additional Instructions: Ibuprofen 600mg three times daily Ice to the area
== END 2017-08-30 20:01 | disposition home or self-care (01) ==
LOC: ED 16:46
DX: S60.221A Contusion of right hand, initial encounter (principal); W00.9XXA Unspecified fall due to ice and snow, initial encounter; Y93.9 Activity, unspecified; Z87.891 Personal history of nicotine dependence; Z88.3 Allergy status to other anti-infective agents; Z88.8 Allergy status to other drugs, medicaments and biological substances
CPT/HCPCS: 99281

== ENCOUNTER 2017-09-01 21:15 | Emergency (ER) | payer OTHER ==
[2017-09-01] MEDS ORDERED: NS 0.9% 1000 ML* 1,000 ML IV ONE (23:01)
[2017-09-01] MEDS ORDERED: diPHENhydraMINE IV* 50 MG/ML 1 ml VIAL (BENADRYL) IV ONE (23:01)
[2017-09-01] MEDS ORDERED: Metoclopramide IV* 5 MG/ML 2 ML VIAL IV ONE (23:01)
[2017-09-01 23:22] LABS: ABS Basophils 0.1 10^3/ul (0-0.2); ABS Eosinophils 0.3 10^3/ul (0-0.6); ABS Lymphocytes 2.5 10^3/ul (1.0-4.8); ABS Monocytes 0.5 10^3/ul (0-0.8); ABS Nucleated RBC 0 10^3/ul; Eosinophil % 4.4 % (0-6); Hematocrit 38 % (35-47); Hemoglobin 13.2 g/dl (12.0-16.0); Lymphocyte % 33.8 % (25-47); Mean Corpuscular HGB Conc 35 g/dl (31-36); Mean Corpuscular Hemoglobin 32 pg (27-31); Mean Corpuscular Volume 91 fL (80-97); Mean Platelet Volume 9 um3 (7.4-10.4); Nucleated Red Blood Cells % 0; Platelet Count 170 10^3/ul (150-450); Red Blood Count 4.17 10^6/ul (4.0-5.4); Red Cell Distribution Width 12 % (10.5-15); White Blood Count 7.4 10^3/ul (3.5-10.8)
[2017-09-01 23:29] LABS: INR 0.98 (0.77-1.02)
[2017-09-01 23:44] LABS: EGFR Non-African American 84.9 (>60)
[2017-09-01] MEDS ORDERED: Iohexol 300* (CONTRAST) 10 ML SDV IV ONE (23:49)
[2017-09-02] MEDS ORDERED: Butalb/Acetamin/Caff TAB* 1 TAB PO ONE (01:09)
--- NOTE | 2017-09-02 01:45 | ED ---
Dinesh Otto Gabriel, scribed for Jassi Jarvis on 09/01/17 at 2257 . Headache - HPI Summary HPI Summary: This patient is a 26 year old F presenting to [facility] accompanied by her father with a chief complaint of headache that began two days ago. The patient rates the pain 9/10 in severity. Patient reports bruising on back and hip due to the fall. Patient denies fever. Patient fell on ice two days but says she didnt hit her head hard. She has a Hx of migraines since her brain surgery in 2016. 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 - History Of Current Complaint Chief Complaint: EDHeadache Stated Complaint: HEADACHE Time Seen by Provider: 09/01/17 22:50 Hx Obtained From: Patient Hx Last Menstrual Period: Currently (11/02/16) Onset/Duration: Started days ago - 2, Still Present Initially Headache Was: Severe Currently Pain Is: Moderate Timing: Constant Location of Headache: Diffuse Associated Signs And Symptoms: Negative - fever - Allergies/Home Medications Allergies/Adverse Reactions: Allergies Allergy/AdvReac Type Severity Reaction Status Date / Time Amoxicillin Allergy Hives Verified 12/17/16 18:27 CI Pigment Blue 63 Allergy Hives Verified 12/17/16 18:27 [From Tamiflu] Miconazole [From Monistat] Allergy Rash Verified 12/17/16 18:27 Oseltamivir [From Tamiflu] Allergy Hives Verified 12/17/16 18:27 keflex Allergy Hives Uncoded 12/17/16 18:27 PMH/Surg Hx/FS Hx/Imm Hx Endocrine/Hematology History: Denies: Hx Diabetes, Hx Thyroid Disease Cardiovascular History: Reports: Other Cardiovascular Problems/Disorders - murmur Denies: Hx Hypertension, Hx Pacemaker/ICD Respiratory History: Denies: Hx Asthma, Hx Chronic Obstructive Pulmonary Disease (COPD) GI History: Denies: Hx Ulcer History: Denies: Hx Renal Disease Musculoskeletal History: Denies: Hx Scoliosis Neurological History: Reports: Hx Seizures, Other Neuro Impairments/Disorders - brain tumor - has appointment for treatment 11/07/2015 Psychiatric History: Denies: Hx Anxiety, Hx Panic Disorder - Cancer History Cancer Type, 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 - Surgical History Surgery Procedure, Year, and Place: tonsillectomy, tumor removed from temporal lobe of brain (01/04/16) - Immunization History Date of Influenza Vaccine: unknown Infectious Disease History: No Infectious Disease History: Denies: Hx Clostridium Difficile, Hx Hepatitis, Hx Human Immunodeficiency Virus (HIV), Hx of Known/Suspected MRSA, Hx Shingles, Hx Tuberculosis, Traveled Outside the [place] in Last 30 Days - Family History Known Family History: Positive: Cardiac Disease, Hypertension, Diabetes, Other - Denies FHx of MRSA - Social History Lives: With Family Alcohol Use: None Hx Substance Use: No Substance Use Type: Reports: None Hx Tobacco Use: Yes Smoking Status (MU): Former Smoker Type: Cigarettes Amount Used/How Often: 1 pk/wk Have You Smoked in the Last Year: Yes Review of Systems Positive: Fever Positive: Bruising - due to fall Positive: Headache All Other Systems Reviewed And Are Negative: Yes Physical Exam - Summary Physical Exam Summary: Appearance: Well appearing, no pain distress Skin: warm, dry, reflects adequate perfusion Head/face: normal Eyes: EOMI, SHELDON ENT: normal Neck: supple, non-tender Respiratory: CTA, breath sounds present Cardiovascular: RRR, pulses symmetrical Abdomen: non-tender, soft Bowel: present Musculoskeletal: normal, strength/ROM intact Neuro: normal, sensory motor intact, A&Ox3 Triage Information Reviewed: Yes Vital Signs On Initial Exam: Initial Vitals Temp Pulse Resp BP Pulse Ox 97 F 78 14 115/65 99 09/01/17 21:17 09/01/17 21:17 09/01/17 21:17 09/01/17 21:17 09/01/17 21:17 Vital Signs Reviewed: Yes Diagnostics - Vital Signs Vital Signs Temp Pulse Resp BP Pulse Ox 09/01/17 21:17 97 F 78 14 115/65 99 - Laboratory Lab Results: Lab Results 09/01/17 09/01/17 09/01/17 Range/Units 23:10 23:10 23:10 WBC 7.4 (3.5-10.8) 10^3/ul RBC 4.17 (4.0-5.4) 10^6/ul Hgb 13.2 (12.0-16.0) g/dl Hct 38 (35-47) % MCV 91 (80-97) fL MCH 32 H (27-31) pg MCHC 35 (31-36) g/dl RDW 12 (10.5-15) % Plt Count 170 (150-450) 10^3/ul MPV 9 (7.4-10.4) um3 Neut % (Auto) 53.9 (38-83) % Lymph % (Auto) 33.8 (25-47) % Caldwell % (Auto) 6.9 (1-9) % Eos % (Auto) 4.4 (0-6) % Baso % (Auto) 1.0 (0-2) % Absolute Neuts (auto) 4.0 (1.5-7.7) 10^3/ul Absolute Lymphs (auto) 2.5 (1.0-4.8) 10^3/ul Absolute Monos (auto) 0.5 (0-0.8) 10^3/ul Absolute Eos (auto) 0.3 (0-0.6) 10^3/ul Absolute Basos (auto) 0.1 (0-0.2) 10^3/ul Absolute Nucleated RBC 0 10^3/ul Nucleated RBC % 0 INR (Anticoag Therapy) 0.98 (0.77-1.02) APTT 32.4 (26.0-36.3) seconds Sodium 137 (133-145) mmol/L Potassium 3.6 (3.5-5.0) mmol/L Chloride 108 (101-111) mmol/L Carbon Dioxide 24 (22-32) mmol/L Anion Gap 5 (2-11) mmol/L BUN 19 (6-24) mg/dL Creatinine 0.82 (0.51-0.95) mg/dL Est GFR ( Amer) 109.2 (>60) Est GFR (Non-Af Amer) 84.9 (>60) BUN/Creatinine Ratio 23.2 H (8-20) Glucose 98 (70-100) mg/dL Calcium 9.4 (8.6-10.3) mg/dL Total Bilirubin 0.40 (0.2-1.0) mg/dL AST 12 L (13-39) U/L ALT 16 (7-52) U/L Alkaline Phosphatase 56 (34-104) U/L Total Protein 6.2 L (6.4-8.9) g/dL Albumin 4.3 (3.2-5.2) g/dL Globulin 1.9 L (2-4) g/dL Albumin/Globulin Ratio 2.3 (1-3) Result Diagrams: 09/01/17 23:10 09/01/17 23:10 Lab Statement: Any lab studies that have been ordered have been reviewed, and results considered in the medical decision making process. - CT CT head CT Interpretation Completed By: Radiologist - Underlying left temporal encephalomalacia previously. No acute infarct, no hemorrhage, no shift or herniation, no abnormal contrast enhancement, and no acute abnormality ED physician has reviewed this radiology report. Re-Evaluation - Re-Evaluation First Eval Re-Evaluation Time: 01:10 Change: Improved Comment: Headahce has resolved. Headache Course/Dx - Course Assessment/Plan: This patient is a 26 year old F presenting to [facility] accompanied by her father with a chief complaint of headache that began two days ago. CT head reveals, per radiologist, Underlying left temporal encephalomalacia previously. No acute infarct, no hemorrhage, no shift or herniation, no abnormal contrast enhancement, and no acute abnormality. Bloodwork obtained. In the ED course the patient was given Benadryl, reglan, IV fluids, and fioricet. Patient will be discharged with prescription for fioricet and follow up from Dr. Moss. The patient is agreeable with this plan. - Diagnoses Differential Diagnosis/HQI/PQRI: Migraine, Subarachnoid Hemorrhage, Tension Headache Provider Diagnoses: Headache Discharge - Discharge Plan Condition: Stable Disposition: HOME Prescriptions: Butalb/Acetamin/Caff TAB* [Fioricet TAB*] 1 tab PO TID #20 tab MDD 3 Patient Education Materials: Butalbital/Acetaminophen/Caffeine (By mouth) Referrals: Meryl Cadena [Primary Care Provider] - Dixie Moss MD [Medical Doctor] - 3 Days Additional Instructions: Follow up with Doctor Moss in three days.RETURN TO THE EMERGENCY DEPARTMENT FOR CHANGING OR WORSENING SYMPTOMS. The documentation as recorded by the Dinesh gracia Gabriel accurately reflects the service I personally performed and the decisions made by , Jassi Jarvis.
[2017-09-02 02:02] VITALS: BP 102/62
--- NOTE | 2017-09-02 10:26 | RAD ---
INDICATION: Headache in a patient with a history of temporal lobe brain tumor excision January 04, 2016 COMPARISON: CT of the brain July 30, 2017 TECHNIQUE: Contiguous axial sections of the brain were obtained from the skull base to the vertex without contrast. FINDINGS: The ventricles, cisterns and sulci are within normal limits. There is encephalomalacia at the right temporal lobe similar appearance to the prior CT examination and presumably the location of the patient's brain tumor excision. Comparing pre and postcontrast images does not reveal any suspicious areas of enhancement. There is no mass or mass effect identified. There is no evidence for intracranial hemorrhage. Postsurgical changes similar to the prior brain CT include evidence of left craniectomy with at least 5 surgical fixation devices. The visualized portion of the paranasal sinuses appear clear. The mastoid air cells are well aerated bilaterally. IMPRESSION: Encephalomalacia at the right temporal lobe and postsurgical changes stable when compared to the July 30, 2017 CT of the brain.
== END 2017-09-02 02:11 | disposition home or self-care (01) ==
LOC: ED 21:15
DX: R51 Headache (principal); Z87.891 Personal history of nicotine dependence; Z86.79 Personal history of other diseases of the circulatory system
CPT/HCPCS: 36415; 70470; 80053; 85025; 85610; 85730; 96365; 96366; 99283; A9270-GY; J1200; J2765; Q9967

== ENCOUNTER 2017-09-24 10:27 | Emergency (ER) | payer OTHER ==
[2017-09-24] MEDS ORDERED: NS 0.9% 1000 ML* 1,000 ML IV ONE (10:34)
--- OUTSIDE RECORDS SUMMARY | 2017-09-24 10:34 | XMS REPORT ---
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 Active generalized seizure Onset: 06/15/2015 Migraine with aura Dixie Moss M.D. Active Onset: 03/07/2016 Anxiety Dixie Moss M.D. Active Onset: 01/16/2017 Photosensitivity Dixie Moss M.D. 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 Smokeless Tobacco Never Used Smokeless Tobacco ETOH Use Rarely consumes alcohol Smoking Light tobacco smoker (10 or fewer cigarettes/day) Recreational Drug Use Denies Drug Use Exercise Type/Frequency Does not exercise Allergies, Adverse Reactions, Alerts Date Description Reaction Status Severity Comments 02/02/2014 Tamiflu active 09/16/2015 Monistat active 03/07/2016 Trileptal Thoughts of self-harm active Severe 03/07/2016 Topamax Mood disturbance active Moderate to Severe 03/07/2016 Keppra Mood disturbance active Moderate to Severe 05/25/2016 Cephalexin active Medications Medication Date Status Form Strength Qnty SIG Indications Ordering Provider Lamotrigine ER 09/18 Active Tablets ER 100mg 30tab take 1 a G40.209 Dalia 24HR s day with a MD Jayna 50mg tablet Lamotrigine ER 09/18 Active Tablets ER 50mg 30tab 1 by mouth G40.209 Dalia 24HR s once a day MD Jayna with 100mg tablet Rizatriptan 09/18 Active Tablets 5mg 9tabs 1 at onset G43.109 Dalia Dispers of MD Jayna migraine. may repeat in 2 hours if needed. do not use more than 2x/week Tylenol Active prn Unknown /0000 Medroxyprogestero Active Suspension 150mg/ml 1 im q 3 Unknown ne /0000 months Paxil Active Tablets 20mg 1 by mouth Unknown /0000 every day Lorazepam 00 Active Tablets 0.5mg 1-2 tabs Unknown /0000 as needed Ibuprofen 00 Active Tablets 800mg Unknown /0000 Lamotrigine 07/19 Hx Tablets 100mg 30tab 1 tab by G40.209 Dixie Adkins s mouth at Ajay, - bedtime M.D. 09/18 every day /2017 Lamotrigine 01/16 Hx Tablets 25mg 120ta 4 tabs by G40.209 Dixie Adkins bs mouth Ajay, - every day M.D. 07/19 directed Celexa 10/11 Hx Tablets 10mg 30tab take 1 by s mouth MD Jayna - daily 03/03 Phenytoin Sodium 09/16 Hx Capsules 100mg 135ca 4 tabs by G40.209 Dixie Adkins ps mouth Ajay, - every M.D. 07/18 other day /2016 (even days) alternatin g with 5 tabs every other day (odd days) Trileptal 07/27 Hx Tablets 300mg 60tab 1 po bid Severiano Jose Luis Gutierrez M.D. 10/05 Levetiracetam 06/15 Hx Tablets 500mg 180ta 1 by mouth Dixie Adkins bs q Jose Luis Cazares M.D. 07/22 Topiramate 06/15 Hx Tablets 25mg 120ta 2-4 tabs G40.201 Dixie Caldera2014 bs by mouth Jose Luis Moss every day Leonor 07/27 at bedtime as directed Depo-Provera Hx Unknown - 06/14 Nexplanon Hx Implant 68mg / - 07/14 Diflucan Hx Tablets 200mg 1 by mouth Unknown /0000 x 1 - 10/05 Citalopram Hx Tablets 20mg 1 by mouth Unknown Hydrobromide /0000 every day - 01/15 Bupropion HCL ER Hx Tablets ER 150mg qd Surinder (SR) 12HR ARI Sheth - 09/17 Chantix Starting Hx Tablets 0.5mg X Surinder, Coco Desean 11 & ARI Sheth - 1 mg X 42 09/17 Medications Administered in Office Medication Date Status Form Strength Qnty SIG Indications Ordering Provider Celestone 3 mg Administered Injection Cynthia and 3mg 014 DANNY Guerra Vital Signs Date Vital Result Comment 09/18/2017 Height 66 inches 5'6" Weight 148.00 lb Heart Rate 77 /min BP Systolic Sitting 110 mmHg BP Diastolic Sitting 72 mmHg Respiratory Rate 16 /min BMI (Body Mass Index) 23.9 kg/m2 07/19/2017 Height 66 inches 5'6" Weight 149.00 lb Heart Rate 80 /min BP Systolic Sitting 100 mmHg BP Diastolic Sitting 66 mmHg Respiratory Rate 12 /min BMI (Body Mass Index) 24.0 kg/m2 01/16/2017 Height 66 inches 5'6" Weight 145.00 lb Heart Rate 68 /min BP Systolic Sitting 108 mmHg BP Diastolic Sitting 76 mmHg Respiratory Rate 14 /min BMI (Body Mass Index) 23.4 kg/m2 05/25/2016 Height 66 inches 5'6" Weight 135.00 lb Heart Rate 56 /min BP Systolic Sitting 128 mmHg BP Diastolic Sitting 64 mmHg Respiratory Rate 14 /min BMI (Body Mass Index) 21.8 kg/m2 03/07/2016 Height 66 inches 5'6" Weight 130.00 lb Heart Rate 80 /min BP Systolic Sitting 106 mmHg BP Diastolic Sitting 64 mmHg Respiratory Rate 16 /min BMI (Body Mass Index) 21.0 kg/m2 09/16/2015 Height 66 inches 5'6" Weight 120.00 lb Heart Rate 64 /min BP Systolic Sitting 118 mmHg BP Diastolic Sitting 60 mmHg Respiratory Rate 14 /min BMI (Body Mass Index) 19.4 kg/m2 06/15/2015 Height 66 inches 5'6" Weight 120.00 lb Heart Rate 72 /min BP Systolic Sitting 102 mmHg BP Diastolic Sitting 62 mmHg Respiratory Rate 14 /min BMI (Body Mass Index) 19.4 kg/m2 02/02/2014 Height 66 inches 5'6" Heart Rate 87 /min BP Systolic 92 mmHg BP Diastolic 65 mmHg Results Test Date Test Result H/L Range Note CBC Auto Diff 05/24/2016 White Blood Count 7.0 10^3/uL 3.5-10.8 Red Blood Count 4.68 10^6/uL 4.0-5.4 Hemoglobin 13.9 g/dL 12.0-16.0 Hematocrit 41 % 35-47 Mean Corpuscular Volume 87 fL 80-97 Mean Corpuscular Hemoglobin 30 pg 27-31 Mean Corpuscular HGB Conc 34 g/dL 31-36 Red Cell Distribution Width 14 % 10.5-15 Platelet Count 187 10^3/uL 150-450 Mean Platelet Volume 9 um3 7.4-10.4 Abs Neutrophils 4.5 10^3/uL 1.5-7.7 Abs Lymphocytes 1.2 10^3/uL 1.0-4.8 Abs Monocytes 0.6 10^3/uL 0-0.8 Abs Eosinophils 0.6 10^3/uL 0-0.6 Abs Basophils 0 10^3/uL 0-0.2 Abs Nucleated RBC 0 10^3/uL Granulocyte % 65.0 % 38-83 Lymphocyte % 17.2 % Low 25-47 Monocyte % 9.2 % High 1-9 Eosinophil % 7.9 % High 0-6 Basophil % 0.7 % 0-2 Nucleated Red Blood Cells % 0 Comp Metabolic Panel 05/24/2016 Sodium 137 mmol/L 133-145 Potassium 3.8 mmol/L 3.5-5.0 Chloride 106 mmol/L 101-111 Co2 Carbon Dioxide 25 mmol/L 22-32 Anion Gap 6 mmol/L 2-11 Glucose 56 mg/dL Low 70-100 Blood Urea Nitrogen 12 mg/dL 6-24 Creatinine 0.75 mg/dL 0.51-0.95 BUN/Creatinine Ratio 16.0 8-20 Calcium 9.3 mg/dL 8.6-10.3 Total Protein 6.6 g/dL 6.4-8.9 Albumin 4.5 g/dL 3.2-5.2 Globulin 2.1 g/dL 2-4 Albumin/Globulin Ratio 2.1 1-3 Total Bilirubin 0.70 mg/dL 0.2-1.0 Alkaline Phosphatase 64 U/L 34-104 Alt 20 U/L 7-52 Ast 13 U/L 13-39 Egfr Non- 94.9 >60 Egfr 122.1 >60 1 Laboratory test 05/24/2016 Phenytoin (Dilantin) 8.2 g/mL Low 10-20 2 finding Laboratory test 02/22/2016 Phenytoin (Dilantin) 10.6 g/mL 10-20 finding Phenytoin Free & 11/16/2015 Free Phenytoin Level <0.8 g/mL 1.0 - 2.0 Total Total Phenytoin 6.9 g/mL 3 Laboratory test 10/08/2015 Phenytoin (Dilantin) 7.3 g/mL Low 10-20 finding Laboratory test 10/04/2015 Phenytoin (Dilantin) < 2.5 g/mL Low 10-20 4 finding CBC Auto Diff 09/16/2015 White Blood Count 10.6 10^3/uL 3.5-10.8 Red Blood Count 4.42 10^6/uL 4.0-5.4 Hemoglobin 13.9 g/dL 12.0-16.0 Hematocrit 41 % 35-47 Mean Corpuscular Volume 93 fL 80-97 Mean Corpuscular Hemoglobin 31 pg 27-31 Mean Corpuscular HGB Conc 34 g/dL 31-36 Red Cell Distribution Width 12 % 10.5-15 Platelet Count 230 10^3/uL 150-450 Mean Platelet Volume 9 um3 7.4-10.4 Abs Neutrophils 7.3 10^3/uL 1.5-7.7 Abs Lymphocytes 2.0 10^3/uL 1.0-4.8 Abs Monocytes 0.7 10^3/uL 0-0.8 Abs Eosinophils 0.5 10^3/uL 0-0.6 Abs Basophils 0.1 10^3/uL 0-0.2 Abs Nucleated RBC 0.01 10^3/uL Granulocyte % 69.0 % 38-83 Lymphocyte % 19.2 % Low 25-47 Monocyte % 6.8 % 1-9 Eosinophil % 4.4 % 0-6 Basophil % 0.6 % 0-2 Nucleated Red Blood Cells % 0.1 Comp Metabolic Panel 09/16/2015 Sodium 137 mmol/L 133-145 Potassium 4.0 mmol/L 3.5-5.0 Chloride 104 mmol/L 101-111 Co2 Carbon Dioxide 27 mmol/L 22-32 Anion Gap 6 mmol/L 2-11 Glucose 81 mg/dL 70-100 Blood Urea Nitrogen 10 mg/dL 6-24 Creatinine 0.68 mg/dL 0.51-0.95 BUN/Creatinine Ratio 14.7 8-20 Calcium 9.7 mg/dL 8.6-10.3 Total Protein 6.7 g/dL 6.4-8.9 Albumin 4.7 g/dL 3.2-5.2 Globulin 2.0 g/dL 2-4 Albumin/Globulin Ratio 2.4 1-3 Total Bilirubin 0.60 mg/dL 0.2-1.0 Alkaline Phosphatase 49 U/L 34-104 Alt 16 U/L 7-52 Ast 13 U/L 13-39 Egfr Non- 107.2 >60 Egfr 137.9 >60 5 1 Because ethnic data is not always readily available, this report includes an eGFR for both -Americans and non- Americans. The National Kidney Disease Education Program (NKDEP) does not endorse the use of the MDRD equation for patients that are not between the ages of 18 and 70, are , have extremes of body size, muscle mass, or nutritional status, or are non- or non-. According to the National Kidney Foundation, irrespective of diagnosis, the stage of the disease is based on the level of kidney function: Stage Description GFR(mL/min/1.73 m(2)) 1 Kidney damage with normal or decreased GFR 90 2 Kidney damage with mild decrease in GFR 60-89 3 Moderate decrease in GFR 30-59 4 Severe decrease in GFR 15-29 5 Kidney failure <15 (or dialysis) 2 Draw prior to AM dose of medication Copy Result to: MERYL CADENA ([id number]) 3 REFERENCE VALUE 10.0 - 20.0 Test Performed by: [place] [id number] Tin Assorter: Jesse Lopez II, M.D., Ph.D. 4 Prior to AM dose of medication (to be drawn on or around 10/11/15) 5 Because ethnic data is not always readily available, this report includes an eGFR for both -Americans and non- Americans. The National Kidney Disease Education Program (NKDEP) does not endorse the use of the MDRD equation for patients that are not between the ages of 18 and 70, are , have extremes of body size, muscle mass, or nutritional status, or are non- or non-. According to the National Kidney Foundation, irrespective of diagnosis, the stage of the disease is based on the level of kidney function: Stage Description GFR(mL/min/1.73 m(2)) 1 Kidney damage with normal or decreased GFR 90 2 Kidney damage with mild decrease in GFR 60-89 3 Moderate decrease in GFR 30-59 4 Severe decrease in GFR 15-29 5 Kidney failure <15 (or dialysis) Procedures Date CPT Code Description Status 07/27/2015 23258 EEG Recording Awake & Drowsy Completed 05/29/2015 06257 EEG Recording Awake & Asleep Completed 07/17/2014 93825 ECHO Transthorasic Realtime 2D W Doppler & Color Completed Flow Hosp 02/02/2014 82480 Inject Tendon Sheath Or Ligament Aponeurosis Eg Plantar Completed Fascia Encounters Type Date Location Provider CPT E/M Dx Office Visit 07/19/2017 [facility] Dixie Moss, 43412 G40.209 8:45a [facility] [employer] Inspector M.D. G43.109 Z86.011 Office Visit 01/16/2017 8:45a [facility] Diixe Moss, 23891 G40.209 [facility] [employer] Inspector M.D. Z86.011 Z79.899 Office Visit 05/25/2016 11:45a [facility] Dixie Moss, 39314 G40.209 [facility] [employer] M.D. Z86.011 Z79.899 Office Visit 03/07/2016 3:45p [facility] Dixie Moss, 13874 G40.209 [facility] [employer] M.D. F41.9 Z86.011 Office Visit 09/16/2015 2:30p [facility] Dixie Moss, 32987 G43.909 [facility] [employer] Inspector M.D. G40.209 Office Visit 07/27/2015 1:41p [facility] Severiano Breaux 84930 G40.209 Leonor Palacio R94.01 Office Visit 06/15/2015 9:00a [facility] Dixie Moss, 39083 G43.109 [facility] [employer] Inspector M.D. G40.209 Office Visit 05/29/2015 12:00p [facility] Dixie MaddieChase Moss, 17200 R56.9 MChaseDChase R55 Office Visit 05/29/2015 12:45p [facility] [place], Mark Barry, 97219 780.39 Hospitalists Leonor 289.81 305.1 Office Visit 05/28/2015 11:59a [facility] Dixie MaddieChase Moss, 57201 R56.9 MChaseDChase R55 Office Visit 05/27/2015 12:44p [facility] [place], [address] 780.39 Assoc, Hospital[facility] Galvez 784.0 Office Visit 02/02/2014 2:00p [facility] DANNY Lema 80943 727.04 Of [place] Plan of Care Future Appointment(s):12/18/2017 9:30 am - Dalia Dorantes MD at [id number]/18/2017 - Dalia Dorantes MDG40.209 Local-rel symptc epi w cmplx prt seiz, not ntrct,w/o stat epiNew Medication:Lamotrigine ER 100 mgLamotrigine ER 50 mgFollow up:: 3 MONTHSRecommendations:keep track of the auras and especially try to note whether they are just luis vu episodes or if it is also speech problems and nausea with it Increase lamotrigine to 150mg a day and change to ER formulation.G43.109 Migraine with aura, not intractable, w/o status migrainosusNew Medication:Rizatriptan Benzoate 5 mgZ86.011 Personal history of benign neoplasm of the smuflR21.9 Anxiety disorder, unspecifiedRef[facility]
[2017-09-24 10:59] LABS: ABS Basophils 0 10^3/ul (0-0.2); ABS Eosinophils 0.2 10^3/ul (0-0.6); ABS Lymphocytes 1.1 10^3/ul (1.0-4.8); ABS Monocytes 0.4 10^3/ul (0-0.8); ABS Neutrophils 4.7 10^3/ul (1.5-7.7); ABS Nucleated RBC 0 10^3/ul; Eosinophil % 2.7 % (0-6); Hematocrit 41 % (35-47); Hemoglobin 14.2 g/dl (12.0-16.0); Lymphocyte % 16.9 % (25-47); Mean Corpuscular HGB Conc 35 g/dl (31-36); Mean Corpuscular Hemoglobin 32 pg (27-31); Mean Corpuscular Volume 91 fL (80-97); Mean Platelet Volume 9 um3 (7.4-10.4); Nucleated Red Blood Cells % 0; Platelet Count 166 10^3/ul (150-450); Red Blood Count 4.46 10^6/ul (4.0-5.4); Red Cell Distribution Width 13 % (10.5-15); White Blood Count 6.5 10^3/ul (3.5-10.8)
[2017-09-24 11:21] LABS: EGFR Non-African American 100.3 (>60)
[2017-09-24 11:28] LABS: Urine Appearance Clear; Urine Blood Negative (Negative); Urine Color Straw; Urine Ketones Negative (Negative); Urine Protein Negative (Negative); Urine Specific Gravity 1.004 (1.010-1.030); Urine Urobilinogen Negative (Negative)
[2017-09-24 11:30] LABS: INR 1.04 (0.77-1.02)
[2017-09-24] MEDS ORDERED: Ketorolac INJ* 30 MG/ML 1 ML VIAL IV PUSH ONE (11:31)
[2017-09-24 13:06] VITALS: BP 94/58
--- NOTE | 2017-09-24 16:26 | ED ---
Valerio Otto Nilda, scribed for Zandra Zamora MD on 09/24/17 at 1206 . Headache - HPI Summary HPI Summary: This patient is a 26 year old F s/p neurosurg in [place] with Dr. 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 Pt states that at onset, she experienced lip twitching, left-sided facial twitching, left sided facial warmth, and uncontrollable laughter. These symptoms have resolved and pt reports her only symptom is left sided headache that radiates down left neck, which is her usual BENNETT presentation. The patient rates the headache pain 7/10 in severity. Symptoms aggravated by bright lights, and alleviated by nothing. Patient denies fever. Pt states the twitching started first, and the headache came after. Pt states her last MRI was December 2016, and Brain CT 08/22/17 and there were no acute findings then. EMS states blood glucose was normal in ambulance. Pt states no similar episode of twitching. Medications include Depo Shot, lamictal. States she is no longer on phenytoin. Pt states she has given twice. Pt is seen by Dr. Baird ([place]) and Dr. Dorantes. States she just saw Dr. 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 - History Of Current Complaint Chief Complaint: EDHeadache Stated Complaint: SEIZURES Time Seen by Provider: 09/24/17 10:34 Hx Obtained From: Patient, Family/Assistant Coach - mother and father both present with pt in the ED, EMS Hx Last Menstrual Period: unsure, is on Depo, thinks she is due soon for the Depo (09/24/17) Onset/Duration: Sudden Onset, Resolved Initially Headache Was: Moderate Currently Pain Is: Current Pain Scale(0-10)= - 7/10 Timing: Constant Character: Migraine Location of Headache: Other: - left-sided headache radiating to left neck Radiates to: left neck Aggravating Factor: Bright Lights Allevating Factors: Nothing Associated Signs And Symptoms: Other (Noted In Comments) - uncontrollable laughter and facial twitching (resolved); negative fever - Allergies/Home Medications Allergies/Adverse Reactions: Allergies Allergy/AdvReac Type Severity Reaction Status Date / Time Amoxicillin Allergy Hives Verified 09/24/17 10:39 CI Pigment Blue 63 Allergy Hives Verified 09/24/17 10:39 [From Tamiflu] Miconazole [From Monistat] Allergy Rash Verified 09/24/17 10:39 Oseltamivir [From Tamiflu] Allergy Hives Verified 09/24/17 10:39 keflex Allergy Hives Uncoded 09/24/17 10:39 reglan Allergy Tachycardia Uncoded 09/24/17 12:36 Home Medications: Home Medications LORazepam TAB(*) [Ativan 0.5 MG TAB (*)] 0.5 - 1 mg PO DAILY PRN 09/24/17 [ History Confirmed 09/24/17] Lamotrigine [Lamotrigine ER] 50 mg PO DAILY 09/24/17 [History Confirmed 09/24/17 ] Lamotrigine [Lamotrigine ER] 100 mg PO DAILY 09/24/17 [History Confirmed ] PARoxetine HCL TAB* [Paxil TAB*] 20 mg PO QAM 09/24/17 [History Confirmed ] Rizatriptan (NF) [Maxalt-[employer] [place] (NF)] 5 mg PO DAILY PRN MDD 10 mg 09/24/17 [ History Confirmed 09/24/17] PMH/Surg Hx/FS Hx/Imm Hx Previously Healthy: No Endocrine/Hematology History: Reports: Other Endocrine/Hematological Disorders - Protein C deficiency Denies: Hx Diabetes, Hx Thyroid Disease Cardiovascular History: Reports: Other Cardiovascular Problems/Disorders - murmur Denies: Hx Hypertension, Hx Pacemaker/ICD Respiratory History: Denies: Hx Asthma, Hx Chronic Obstructive Pulmonary Disease (COPD) GI History: Denies: Hx Ulcer History: Denies: Hx Dialysis, Hx Renal Disease Musculoskeletal History: Denies: Hx Scoliosis Neurological History: Reports: Hx Migraine - complex, Hx Seizures, Other Neuro Impairments/Disorders - 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) Psychiatric History: Reports: Hx Eating Disorder Denies: Hx Anxiety, Hx Panic Disorder - Cancer History Cancer Type, 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 - Surgical History Surgery Procedure, Year, and Place: tonsillectomy, tumor removed from temporal lobe of brain (01/04/16) - Immunization History Date of Influenza Vaccine: unknown Infectious Disease History: No Infectious Disease History: Denies: Hx Clostridium Difficile, Hx Hepatitis, Hx Human Immunodeficiency Virus (HIV), Hx of Known/Suspected MRSA, Hx Shingles, Hx Tuberculosis, Traveled Outside the [place] in Last 30 Days - Family History Known Family History: Positive: Cardiac Disease, Hypertension, Diabetes, Other - Complex migrain (mother); Denies FHx of MRSA - Social History Alcohol Use: None Hx Substance Use: No Substance Use Type: Reports: None Hx Tobacco Use: Yes Smoking Status (MU): Light Every Day Tobacco Smoker Type: Cigarettes Amount Used/How Often: 1 pk/wk Have You Smoked in the Last Year: Yes Review of Systems Negative: Fever Positive: Photophobia. Negative: Blurred Vision, Diplopia Cardiovascular: Negative Respiratory: Negative Positive: Nausea Neurological: Other - lip twitching, left side facial twitching, uncontrollable laughter (resolved) Positive: Headache - left temporal parietal and radiates down left neck Psychological: Normal All Other Systems Reviewed And Are Negative: Yes Physical Exam - Summary Physical Exam Summary: Appearance: well-appearing, moderate pain distress, Well-nourished Skin: Warm, color reflects adequate perfusion Head: Normal Head/Face inspection Eyes: Conjunctiva clear, pupils 4 mm and reactive, EOMI ENT: Normal inspection Neck: Supple, no nodes, no JVD. Respiratory: Lungs clear, Normal breath sounds, no respiratory distress Cardio: RRR, No murmur, pulses normal, brisk capillary refill Abdomen: soft, nontender Bowel sounds: present Musculoskeletal: Strength Intact/ ROM intact. No calf tenderness. No edema. Neuro: Alert, muscle tone normal, facial symmetry, speech normal, CN II-XII intact, Motor 5/5, Sensation intact, reflexes 2+ symmetrical, no focal deficit Psychological: Normal Triage Information Reviewed: Yes Vital Signs On Initial Exam: Initial Vitals Temp Pulse Resp BP Pulse Ox 99.5 F 80 14 110/59 99 09/24/17 10:34 09/24/17 10:34 09/24/17 10:34 09/24/17 10:34 09/24/17 10:34 Vital Signs Reviewed: Yes Diagnostics - Vital Signs Vital Signs Temp Pulse Resp BP Pulse Ox 09/24/17 10:34 99.5 F 80 14 110/59 99 - Laboratory Lab Results: Lab Results 09/24/17 Range/Units 10:50 WBC 6.5 (3.5-10.8) 10^3/ul RBC 4.46 (4.0-5.4) 10^6/ul Hgb 14.2 (12.0-16.0) g/dl Hct 41 (35-47) % MCV 91 (80-97) fL MCH 32 H (27-31) pg MCHC 35 (31-36) g/dl RDW 13 (10.5-15) % Plt Count 166 (150-450) 10^3/ul MPV 9 (7.4-10.4) um3 Neut % (Auto) 72.7 (38-83) % Lymph % (Auto) 16.9 L (25-47) % [place] % (Auto) 6.9 (1-9) % Eos % (Auto) 2.7 (0-6) % Baso % (Auto) 0.8 (0-2) % Absolute Neuts (auto) 4.7 (1.5-7.7) 10^3/ul Absolute Lymphs (auto) 1.1 (1.0-4.8) 10^3/ul Absolute Monos (auto) 0.4 (0-0.8) 10^3/ul Absolute Eos (auto) 0.2 (0-0.6) 10^3/ul Absolute Basos (auto) 0 (0-0.2) 10^3/ul Absolute Nucleated RBC 0 10^3/ul Nucleated RBC % 0 Result Diagrams: 09/24/17 10:50 09/24/17 10:50 Lab Statement: Any lab studies that have been ordered have been reviewed, and results considered in the medical decision making process. Re-Evaluation - Re-Evaluation First Eval Re-Evaluation Time: 12:30 Change: Improved Comment: Pt states headache is better. Reglan gave fast HR so will be listed as medication allergy. Pt took her own Maxalt while Dr. Zamora was in the room and with her permission. Pt does not feel the need to wait in the ED until the headache has completely resolved. Headache Course/Dx - Course Assessment/Plan: This pt is a 26 y/o F BIBA with CC of left sided facial twitching (resolved) and constant severe headache since this morning. PMHx left sided brain tumor (removed in 2016). Labs unremarkable. [1203]Dr. Dorantes recommends: No need for EEG at this point. The side of her twitching does not indicate the tumor is responsible, since tumor and surgery were also on the left side. Recommends treating symptoms as migraine. No imaging needed at this time. Pt medications reviewed this visit. Allergies noted. In the ED course, the patient was given Toradol and IV fluids. lamotrigine level checked, but not resulted during ED course. Pt is stable and will be D/C with a Dx of complex migraine. Pt understands and is agreeable with this plan. - Diagnoses Provider Diagnoses: complex migraine - Physician Notifications Discussed Care Of Patient With: Dalia Dorantes - Neurology Time Discussed With Above Provider: 12:03 Instructed by Provider To: Other - No need for EEG at this point. The left side of her twitching does not indicate tumor or surgery is responsible, since the tumor and surgery were also left sided. Dr. Dorantes recommends treating symptoms as migraine. No imaging needed at this time. Discharge - Discharge Plan Condition: Stable Disposition: HOME Patient Education Materials: Migraine Headache (ED) Forms: *Work Release Referrals: Dalia Dorantes MD [Medical Doctor] - (as scheduled ) Meryl Cadena [Primary Care Provider] - Additional Instructions: We talked to Dr. Dorantes today. She did not feel you needed EEG monitoring or CT imaging at this time. She felt this should be treated as a complex migraine. She does not feel your symptoms are related to your brain tumor based on my description of your symptoms. We have identified that Reglan gave you a fast heart rate, and have listed this in your allergies. We gave you Toradol 30mg IV for pain control today with IV fluids. You took your own maxalt 5mg at 1235pm. Follow up with Dr. Dorantes and Dr. Baird as scheduled. Return to the ER if you have any new or worsening symptoms. The documentation as recorded by the Valerio gracia Nilda accurately reflects the service I personally performed and the decisions made by me, Zandra Zamora MD.
== END 2017-09-24 13:05 | disposition home or self-care (01) ==
LOC: ED 10:27
DX: G43.109 Migraine with aura, not intractable, without status migrainosus (principal); G51.3 Clonic hemifacial spasm; D68.59 Other primary thrombophilia; Z88.1 Allergy status to other antibiotic agents; Z88.8 Allergy status to other drugs, medicaments and biological substances; F17.210 Nicotine dependence, cigarettes, uncomplicated
CPT/HCPCS: 36415; 80053; 80175; 80185; 80307; 80320; 81003; 82550; 83605; 83735; 84443; 84484; 85025; 85610; 85730; 96361; 96374; 99284; G0480; J1885

== ENCOUNTER 2017-12-16 19:14 | Emergency (ER) | payer OTHER ==
[2017-12-16] MEDS ORDERED: NS 0.9% 1000 ML* 1,000 ML IV ONE (20:02)
[2017-12-16] MEDS ORDERED: PROCHLORPERAZINE INJ 5 MG/ML 2 ML VIAL IV ONE (20:02)
[2017-12-16] MEDS ORDERED: diPHENhydraMINE IV* 50 MG/ML 1 ml VIAL (BENADRYL) SLOW PUSH ONE (20:02)
[2017-12-16] MEDS ORDERED: diPHENhydraMINE IV* 50 MG in NS 0.9% 50 ML* 50 ML IVPB ONE (20:02)
[2017-12-16] MEDS ORDERED: Ketorolac INJ* 30 MG/ML 1 ML VIAL IV PUSH ONE (20:02)
[2017-12-16 23:35] VITALS: BP 120/62
== END 2017-12-16 22:42 | disposition home or self-care (01) ==
LOC: ED 19:14
DX: G43.909 Migraine, unspecified, not intractable, without status migrainosus (principal)
CPT/HCPCS: 96374; 96375; 99282; J0780; J1200; J1885

== ENCOUNTER 2018-04-06 21:39 | Emergency (ER) | payer OTHER ==
--- NOTE | 2018-04-06 22:27 | ED ---
Head Injury - HPI Summary HPI Summary: Complains of being hit in the head by a steel door yesterday. Denies LOC, N/V, vision change, AMS. History of brain surgery with recent 2 years ago with recent MRI that indicated skull was not fully closed. History of titanium plates in head. No anti-coag. Denies , states she has not had intercourse in one year. Medical history is migraines, seizures, brain tumor. - History Of Current Complaint Chief Complaint: EDHeadInjury Stated Complaint: HEAD INJURY Time Seen by Provider: 04/06/18 21:54 Hx Obtained From: Patient Hx Last Menstrual Period: unsure, is on Depo, thinks she is due soon for the Depo (09/24/17) Mechanism Of Injury: Blunt Trauma Onset/Duration: Started Days Ago Onset of Pain: Immediate Severity Currently: Moderate Severity Initially: Moderate Pain Intensity: 7 Pain Scale Used: 0-10 Numeric Location of Head Injury: Frontal Character: Throbbing Associated Signs And Symptoms: Negative - Allergies/Home Medications Allergies/Adverse Reactions: Allergies Allergy/AdvReac Type Severity Reaction Status Date / Time amoxicillin Allergy Mild Rash Verified 04/06/18 21:48 miconazole Allergy Mild Hives Verified 04/06/18 21:48 oseltamivir [From Tamiflu] Allergy Mild Hives Verified 04/06/18 21:48 diphenhydramine Allergy Anxiety Verified 04/06/18 21:48 [From Benadryl] keflex Allergy Hives Uncoded 04/06/18 21:48 reglan Allergy Tachycardia Uncoded 04/06/18 21:48 PMH/Surg Hx/FS Hx/Imm Hx Endocrine/Hematology History: Reports: Other Endocrine/Hematological Disorders - Protein C deficiency Denies: Hx Anticoagulant Therapy, Hx Diabetes, Hx Thyroid Disease Cardiovascular History: Reports: Other Cardiovascular Problems/Disorders - murmur Denies: Hx Hypertension, Hx Pacemaker/ICD Respiratory History: Denies: Hx Asthma, Hx Chronic Obstructive Pulmonary Disease (COPD) GI History: Denies: Hx Ulcer History: Denies: Hx Dialysis, Hx Renal Disease Musculoskeletal History: Denies: Hx Scoliosis Neurological History: Reports: Hx Migraine - complex, Hx Seizures, Other Neuro Impairments/Disorders - 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) Psychiatric History: Reports: Hx Eating Disorder Denies: Hx Anxiety, Hx Panic Disorder - Cancer History Cancer Type, 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 - Surgical History Surgery Procedure, Year, and Place: tonsillectomy, tumor removed from temporal lobe of brain (01/04/16) - Immunization History Date of Influenza Vaccine: unknown Infectious Disease History: No Infectious Disease History: Denies: Hx Clostridium Difficile, Hx Hepatitis, Hx Human Immunodeficiency Virus (HIV), Hx of Known/Suspected MRSA, Hx Shingles, Hx Tuberculosis, Traveled Outside the [place] in Last 30 Days - Family History Known Family History: Positive: None, Cardiac Disease, Hypertension, Diabetes, Other - Complex migrain (mother); Denies FHx of MRSA - Social History Alcohol Use: None Hx Substance Use: No Substance Use Type: Reports: None Hx Tobacco Use: Yes Smoking Status (MU): Former Smoker Type: Cigarettes Amount Used/How Often: 1 pk/wk Have You Smoked in the Last Year: Yes Review of Systems Constitutional: Negative Eyes: Negative ENT: Negative Cardiovascular: Negative Respiratory: Negative Gastrointestinal: Negative Genitourinary: Negative Musculoskeletal: Negative Skin: Negative Positive: Headache Psychological: Normal All Other Systems Reviewed And Are Negative: Yes Physical Exam - Summary Physical Exam Summary: Neuro exam normal. Examination of area of contact on forehead indicates no erythema, ecchymosis, swelling, deformity. EOMs intact. Triage Information Reviewed: Yes Vital Signs On Initial Exam: Initial Vitals Temp Pulse Resp BP Pulse Ox 98.7 F 90 14 130/82 100 04/06/18 21:46 04/06/18 21:46 04/06/18 21:46 04/06/18 21:46 04/06/18 21:46 Vital Signs Reviewed: Yes Appearance: Positive: Well-Appearing Skin: Positive: Warm Head/Face: Positive: Normal Head/Face Inspection Eyes: Positive: Normal Neck: Positive: Supple Respiratory/Lung Sounds: Positive: Clear to Auscultation Cardiovascular: Positive: Normal Abdomen Description: Positive: Nontender Musculoskeletal: Positive: Normal Neurological: Positive: Normal Psychiatric: Positive: Normal AVPU Assessment: Alert - Isha Coma Scale Best Eye Response: 4 - Spontaneous Best Motor Response: 6 - Obeys Commands Best Verbal Response: 5 - Oriented Coma Scale Total: 15 Diagnostics - Vital Signs Vital Signs Temp Pulse Resp BP Pulse Ox 04/06/18 21:46 98.7 F 90 14 130/82 100 - Laboratory Lab Statement: Any lab studies that have been ordered have been reviewed, and results considered in the medical decision making process. - CT brain CT Interpretation: No Acute Changes CT Interpretation Completed By: Radiologist Head Injury Course/Dx Course Of Treatment: Complains of being hit in the head by a steel door yesterday. Denies LOC, N/V, vision change, AMS. History of brain surgery with recent 2 years ago with recent MRI that indicated skull was not fully closed. History of titanium plates in head. No anti-coag. Denies , states she has not had intercourse in one year. Medical history is migraines, seizures , brain tumor. Physical exam:Neuro exam normal. Examination of area of contact on forehead indicates no erythema, ecchymosis, swelling, deformity. EOMs intact. CT head negative. - Diagnoses Provider Diagnoses: Head injury Discharge - Sign-Out/Discharge Documenting (check all that apply): Patient Departure - Discharge Plan Condition: Stable Disposition: HOME Patient Education Materials: Head Injury (ED) Referrals: Meryl Cadena [Primary Care Provider] - Additional Instructions: Follow-up with your neurologist. Return to the ED for any new or worsening symptoms - Billing Disposition and Condition Condition: STABLE Disposition: Home
[2018-04-06] MEDS ORDERED: Acetaminophen TAB* 325 MG PO ONE (23:32)
[2018-04-06 23:57] VITALS: BP 122/75
--- NOTE | 2018-04-07 10:30 | RAD ---
Indication: Headaches, head injury, history of brain surgery. CT of the brain performed without IV contrast. Comparison is made with previous exam dated January 23, 2018. Ventricular structures are midline. No midline shift is noted. Patient is status post left craniotomy with encephalomalacia in the middle cranial fossa on the left. This is unchanged from previous exam. There is no evidence of intracranial mass or hemorrhage. No other high or low density lesions are identified. Calvaria demonstrates prior craniotomy in the left temporal bone. Paranasal sinuses and ethmoid air cells as well as the mastoid air cells are unremarkable. IMPRESSION: Postoperative changes with left temporal craniotomy and encephalomalacia of the left middle cranial fossa. No intracranial hemorrhage is noted.
== END 2018-04-06 23:35 | disposition home or self-care (01) ==
LOC: ED 21:39
DX: S09.90XA Unspecified injury of head, initial encounter (principal); W22.8XXA Striking against or struck by other objects, initial encounter; Y92.9 Unspecified place or not applicable; G93.89 Other specified disorders of brain; R56.9 Unspecified convulsions; Z86.011 Personal history of benign neoplasm of the brain; Z87.891 Personal history of nicotine dependence; Z88.8 Allergy status to other drugs, medicaments and biological substances; Z88.3 Allergy status to other anti-infective agents
CPT/HCPCS: 70450; 99282; A9270-GY

== ENCOUNTER 2018-05-12 10:55 | Emergency (ER) | payer OTHER ==
--- NOTE | 2018-05-12 13:11 | RAD ---
Indication: Back pain. 2 views of the thoracic spine demonstrate vertebral bodies to be normal in height. Disc spaces all well-preserved. Pedicles appear intact. IMPRESSION: No fracture of the thoracic spine is noted.
[2018-05-12 13:47] VITALS: BP 121/65
--- NOTE | 2018-05-12 18:47 | ED ---
Back Pain - HPI Summary HPI Summary: Pt. is a 27 y.o female who presents to the ER for ongoing mid back pain x several weeks. Pt. does not recall any specific injury but does note a physical job. Pain is worse with lifting and standing for long periods of time. Pt. states pain occasionally radiates into arms and legs with tingling. She denies fever, chills, SOB, pluritic chest pain, urinary sxs. Symptoms are mild in severity. Pt. concerned bc pain is not improving. - History of Current Complaint Chief Complaint: EDBackInjuryPain Stated Complaint: BACK PAIN Time Seen by Provider: 05/12/18 11:45 Hx Obtained From: Patient Hx Last Menstrual Period: unsure, is on Depo, thinks she is due soon for the Depo (09/24/17) Pain Intensity: 4 Pain Scale Used: 0-10 Numeric - Allergies/Home Medications Allergies/Adverse Reactions: Allergies Allergy/AdvReac Type Severity Reaction Status Date / Time amoxicillin Allergy Mild Rash Verified 05/12/18 11:15 miconazole Allergy Mild Hives Verified 05/12/18 11:15 oseltamivir [From Tamiflu] Allergy Mild Hives Verified 05/12/18 11:15 diphenhydramine Allergy Anxiety Verified 05/12/18 11:15 [From Benadryl] keflex Allergy Hives Uncoded 05/12/18 11:15 reglan Allergy Tachycardia Uncoded 05/12/18 11:15 PMH/Surg Hx/FS Hx/Imm Hx Previously Healthy: Yes Endocrine/Hematology History: Reports: Other Endocrine/Hematological Disorders - Protein C deficiency Denies: Hx Anticoagulant Therapy, Hx Diabetes, Hx Thyroid Disease Cardiovascular History: Reports: Other Cardiovascular Problems/Disorders - murmur Denies: Hx Hypertension, Hx Pacemaker/ICD Respiratory History: Denies: Hx Asthma, Hx Chronic Obstructive Pulmonary Disease (COPD) GI History: Denies: Hx Ulcer History: Denies: Hx Dialysis, Hx Renal Disease Musculoskeletal History: Denies: Hx Scoliosis Neurological History: Reports: Hx Migraine - complex, Hx Seizures, Other Neuro Impairments/Disorders - 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) Psychiatric History: Reports: Hx Eating Disorder Denies: Hx Anxiety, Hx Panic Disorder - Cancer History Cancer Type, 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 - Surgical History Surgery Procedure, Year, and Place: tonsillectomy, tumor removed from temporal lobe of brain (01/04/16) - Immunization History Date of Influenza Vaccine: unknown Infectious Disease History: No Infectious Disease History: Denies: Hx Clostridium Difficile, Hx Hepatitis, Hx Human Immunodeficiency Virus (HIV), Hx of Known/Suspected MRSA, Hx Shingles, Hx Tuberculosis, Traveled Outside the [place] in Last 30 Days - Family History Known Family History: Positive: None, Cardiac Disease, Hypertension, Diabetes, Other - Complex migrain (mother); Denies FHx of MRSA - Social History Occupation: Employed Full-time Lives: With Family Alcohol Use: None Hx Substance Use: No Substance Use Type: Reports: None Hx Tobacco Use: Yes Smoking Status (MU): Former Smoker Type: Cigarettes Amount Used/How Often: 1 pk/wk Have You Smoked in the Last Year: Yes Review of Systems Constitutional: Negative Cardiovascular: Negative Respiratory: Negative Gastrointestinal: Negative Genitourinary: Negative Positive: Other - back pain Neurological: Negative All Other Systems Reviewed And Are Negative: Yes Physical Exam Triage Information Reviewed: Yes Vital Signs On Initial Exam: Initial Vitals Temp Pulse Resp BP Pulse Ox 98.1 F 90 16 111/72 99 05/12/18 11:10 05/12/18 11:10 05/12/18 11:10 05/12/18 11:10 05/12/18 11:10 Vital Signs Reviewed: Yes Appearance: Positive: Well-Appearing - Pt. sitting on bed in NAD. Skin: Positive: Warm, Dry Head/Face: Positive: Normal Head/Face Inspection Eyes: Positive: Normal, EOMI Neck: Positive: Supple Musculoskeletal: Positive: Other - Midline tenderness noted to the lower thoracic spine and over the left paraspinal region. No CVA tenderness. 5/5 strength in bilateral UE and LE. Ambulating without difficulty. Neurological: Positive: Normal, CN Intact II-III Psychiatric: Positive: Affect/Mood Appropriate Diagnostics - Vital Signs Vital Signs Temp Pulse Resp BP Pulse Ox 05/12/18 13:46 98.5 F 86 16 121/65 99 05/12/18 11:10 98.1 F 90 16 111/72 99 - Laboratory Lab Statement: Any lab studies that have been ordered have been reviewed, and results considered in the medical decision making process. Back Pain Course/Dx - Course Course Of Treatment: Pt. presenting for ongoing back pain. Pain is reproducible. No neuro. deficits on exam. Given midline tenderness and ongoing pain xrays were obtained. Xrays per radiology are negative for acute findings. Results discussed. Naproxen rx for pain. Advised heat and massage. Advised to f.u with PCP on Sunday for further eval and possible PT. Pt. understands and agrees with plan. - Diagnoses Differential Diagnosis/HQI/PQRI: Positive: Arthritis, Fracture, Herniated Disc, Strain, Sprain Provider Diagnoses: Back pain Discharge - Sign-Out/Discharge Documenting (check all that apply): Patient Departure - Discharge Plan Condition: Good Disposition: HOME Prescriptions: Naproxen [Naprosyn 500 mg tab] 500 mg PO Q12H #20 tablet Patient Education Materials: Thoracic Disc Herniation (ED), Back Pain (ED) Referrals: Meryl Cadena [Primary Care Provider] - Additional Instructions: Schedule a follow up appointment with your PCP Naproxen as directed for pain Apply warm compresses Avoid heavy lifting Return to ER if symptoms change or worsen - Billing Disposition and Condition Condition: GOOD Disposition: Home
== END 2018-05-12 13:46 | disposition home or self-care (01) ==
LOC: ED 10:55
DX: M54.9 Dorsalgia, unspecified (principal); Z87.891 Personal history of nicotine dependence; Z88.3 Allergy status to other anti-infective agents; Z88.8 Allergy status to other drugs, medicaments and biological substances
CPT/HCPCS: 72070; 99282

== ENCOUNTER 2018-09-03 11:56 | Emergency (ER) | payer OTHER ==
[2018-09-03 13:06] LABS: ABS Basophils 0 10^3/ul (0-0.2); ABS Eosinophils 0.2 10^3/ul (0-0.6); ABS Lymphocytes 1.3 10^3/ul (1.0-4.8); ABS Monocytes 0.4 10^3/ul (0-0.8); ABS Neutrophils 4.5 10^3/ul (1.5-7.7); ABS Nucleated RBC 0 10^3/ul; Eosinophil % 2.8 %; Hematocrit 40 % (35-47); Hemoglobin 13.8 g/dl (12.0-16.0); Lymphocyte % 20.8 %; Mean Corpuscular HGB Conc 34 g/dl (31-36); Mean Corpuscular Hemoglobin 31 pg (27-31); Mean Corpuscular Volume 91 fL (80-97); Nucleated Red Blood Cells % 0; Platelet Count 170 10^3/ul (150-450); Red Cell Distribution Width 12 % (10.5-15); White Blood Count 6.4 10^3/ul (3.5-10.8)
[2018-09-03 13:27] LABS: ALT 13 U/L (7-52); AST 11 U/L (13-39); Albumin 4.3 g/dL (3.2-5.2); Albumin/Globulin Ratio 2.3 (1-3); Alkaline Phosphatase 58 U/L (34-104); BUN/Creatinine Ratio 12.4 (8-20); Blood Urea Nitrogen 12 mg/dL (6-24); C Reactive Protein < 1.00 mg/L (<8.01); CO2 Carbon Dioxide 21 mmol/L (22-32); Calcium 9.4 mg/dL (8.6-10.3); EGFR Non-African American 69.4 (>60); Globulin 1.9 g/dL (2-4); Glucose 98 mg/dL (70-100); Magnesium 2.1 mg/dL (1.9-2.7); Potassium 3.6 mmol/L (3.5-5.0); Sodium 140 mmol/L (135-145); Total Protein 6.2 g/dL (6.4-8.9)
[2018-09-03 13:33] LABS: HCG Pregnancy < 0.60 mIU/mL
[2018-09-03 13:35] LABS: Anion Gap 7 mmol/L (2-11); Chloride 112 mmol/L (101-111)
--- NOTE | 2018-09-03 14:36 | ED ---
Abdominal Pain/Female - HPI Summary HPI Summary: Patient is a 27-year-old female with a history of seizures presenting to the ED with severe right sided lower quadrant pain acute onset this morning after a large bowel movement of watery diarrhea. She states she was able to eat some eggs for breakfast just before she had the bowel movement. However since the bowel movement she has had this 9/10 pain, constant and throbbing. She also describes it as an ache. Denies any stabbing pain. Denies any radiation of pain. The pain is most notably just between the RUQ and the RLQ. Endorses one episode of nausea and vomiting. Endorses one episode of watery diarrhea without constipation. Denies any fevers, sweats, chills. She states she has a history of "bowel issues" and is very sensitive to medicine as well. - History of Current Complaint Chief Complaint: EDAbdPain Stated Complaint: SEVERE ABD PAIN, DHIARREA, VOMITING Time Seen by Provider: 09/03/18 12:03 Hx Obtained From: Patient Hx Last Menstrual Period: unsure, is on Depo, thinks she is due soon for the Depo (09/24/17) ?: No Onset/Duration: Sudden Onset Timing: Constant Severity Initially: Moderate Severity Currently: Moderate Pain Intensity: 8 Pain Scale Used: 0-10 Numeric Location: Discrete At: RUQ, Discrete At: RLQ Character: Sharp Aggravating Factor(s): Nothing Alleviating Factor(s): Nothing Associated Signs and Symptoms: Positive: Negative Allergies/Adverse Reactions: Allergies Allergy/AdvReac Type Severity Reaction Status Date / Time amoxicillin Allergy Mild Rash Verified 09/03/18 13:17 miconazole Allergy Mild Hives Verified 09/03/18 13:17 oseltamivir [From Tamiflu] Allergy Mild Hives Verified 09/03/18 13:17 cephalexin [From Keflex] Allergy Hives Verified 09/03/18 13:17 diphenhydramine Allergy Anxiety Verified 09/03/18 13:17 [From Benadryl] metoclopramide [From Reglan] Allergy Tachycardia Verified 09/03/18 13:17 Home Medications: Home Medications Magnesium Oxide [Magnesium] 400 mg PO DAILY 09/03/18 [History Confirmed 09/03/18 ] Zonisamide [Zonegran] 300 mg PO DAILY 09/03/18 [History Confirmed 09/03/18] medroxyPROGESTERone ACETATE* [DEPO-Provera*] 1 dose IM SEE INSTRUCTIONS [History Confirmed 09/03/18] PMH/Surg Hx/FS Hx/Imm Hx Previously Healthy: Yes Endocrine/Hematology History: Reports: Other Endocrine/Hematological Disorders - Protein C deficiency Denies: Hx Anticoagulant Therapy, Hx Diabetes, Hx Thyroid Disease Cardiovascular History: Reports: Other Cardiovascular Problems/Disorders - murmur Denies: Hx Hypertension, Hx Pacemaker/ICD Respiratory History: Denies: Hx Asthma, Hx Chronic Obstructive Pulmonary Disease (COPD) GI History: Denies: Hx Ulcer History: Denies: Hx Dialysis, Hx Renal Disease Musculoskeletal History: Denies: Hx Scoliosis Neurological History: Reports: Hx Migraine - complex, Hx Seizures, Other Neuro Impairments/Disorders - 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) Psychiatric History: Reports: Hx Eating Disorder Denies: Hx Anxiety, Hx Panic Disorder - Cancer History Cancer Type, 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 - Surgical History Surgery Procedure, Year, and Place: tonsillectomy, tumor removed from temporal lobe of brain (01/04/16) - Immunization History Date of Influenza Vaccine: unknown Hx Pertussis Vaccination: No Immunizations Up to Date: Yes Infectious Disease History: No Infectious Disease History: Denies: Hx Clostridium Difficile, Hx Hepatitis, Hx Human Immunodeficiency Virus (HIV), Hx of Known/Suspected MRSA, Hx Shingles, Hx Tuberculosis, Traveled Outside the [place] in Last 30 Days - Family History Known Family History: Positive: None, Cardiac Disease, Hypertension, Diabetes, Other - Complex migrain (mother); Denies FHx of MRSA - Social History Occupation: Unemployed Lives: With Family Alcohol Use: None Hx Substance Use: No Substance Use Type: Reports: None Hx Tobacco Use: Yes Smoking Status (MU): Light Every Day Tobacco Smoker Type: Cigarettes Amount Used/How Often: 1 pk/wk Have You Smoked in the Last Year: Yes Review of Systems Constitutional: Negative Negative: Fever, Chills, Fatigue, Skin Diaphoresis Negative: Palpitations, Chest Pain Negative: Shortness Of Breath, Cough Positive: Abdominal Pain, Vomiting, Diarrhea, Nausea Genitourinary: Negative Positive: no symptoms reported, see HPI Negative: Arthralgia, Myalgia Skin: Negative Neurological: Negative All Other Systems Reviewed And Are Negative: Yes Physical Exam Triage Information Reviewed: Yes Vital Signs On Initial Exam: Initial Vitals Temp Pulse Resp BP Pulse Ox 97.6 F 107 22 116/74 100 09/03/18 11:59 09/03/18 11:59 09/03/18 11:59 09/03/18 11:59 09/03/18 11:59 Vital Signs Reviewed: Yes Appearance: Positive: Well-Appearing, Well-Nourished Skin: Positive: Skin Color Reflects Adequate Perfusion Head/Face: Positive: Normal Head/Face Inspection Eyes: Positive: EOMI, SHELDON, Conjunctiva Clear Neck: Positive: Supple, No Lymphadenopathy Respiratory/Lung Sounds: Positive: Clear to Auscultation, Breath Sounds Present Cardiovascular: Positive: RRR, Pulses are Symmetrical in both Upper and Lower Extremities Abdomen Description: Positive: Soft, Other: - tenderness to the R mid quadrant on palpation Musculoskeletal: Positive: Normal, Strength/ROM Intact Neurological: Positive: Speech Normal Psychiatric: Positive: Normal, Affect/Mood Appropriate Diagnostics - Vital Signs Vital Signs Temp Pulse Resp BP Pulse Ox 09/03/18 14:08 82 111/75 100 09/03/18 14:00 71 100 09/03/18 13:38 63 101/70 99 09/03/18 13:08 72 99/63 99 09/03/18 13:00 87 100 09/03/18 12:38 92 103/71 100 09/03/18 12:09 93 100 09/03/18 12:08 111/73 09/03/18 11:59 97.6 F 107 22 116/74 100 - Laboratory Lab Results: Lab Results 09/03/18 09/03/18 09/03/18 Range/Units 12:54 12:54 12:54 WBC 6.4 (3.5-10.8) 10^3/ul RBC 4.40 (4.00-5.40) 10^6/ul Hgb 13.8 (12.0-16.0) g/dl Hct 40 (35-47) % MCV 91 (80-97) fL MCH 31 (27-31) pg MCHC 34 (31-36) g/dl RDW 12 (10.5-15) % Plt Count 170 (150-450) 10^3/ul MPV 9.0 (7.4-10.4) fL Neut % (Auto) 69.8 % Lymph % (Auto) 20.8 % [place] % (Auto) 6.2 % Eos % (Auto) 2.8 % Baso % (Auto) 0.4 % Absolute Neuts (auto) 4.5 (1.5-7.7) 10^3/ul Absolute Lymphs (auto) 1.3 (1.0-4.8) 10^3/ul Absolute Monos (auto) 0.4 (0-0.8) 10^3/ul Absolute Eos (auto) 0.2 (0-0.6) 10^3/ul Absolute Basos (auto) 0 (0-0.2) 10^3/ul Absolute Nucleated RBC 0 10^3/ul Nucleated RBC % 0 Sodium 140 (135-145) mmol/L Potassium 3.6 (3.5-5.0) mmol/L Chloride 112 H (101-111) mmol/L Carbon Dioxide 21 L (22-32) mmol/L Anion Gap 7 (2-11) mmol/L BUN 12 (6-24) mg/dL Creatinine 0.97 H (0.51-0.95) mg/dL Est GFR ( Amer) 84.0 (>60) Est GFR (Non-Af Amer) 69.4 (>60) BUN/Creatinine Ratio 12.4 (8-20) Glucose 98 (70-100) mg/dL Lactic Acid 0.7 (0.5-2.0) mmol/L Calcium 9.4 (8.6-10.3) mg/dL Magnesium 2.1 (1.9-2.7) mg/dL Total Bilirubin 0.70 (0.2-1.0) mg/dL AST 11 L (13-39) U/L ALT 13 (7-52) U/L Alkaline Phosphatase 58 (34-104) U/L C-Reactive Protein < 1.00 (<8.01) mg/L Total Protein 6.2 L (6.4-8.9) g/dL Albumin 4.3 (3.2-5.2) g/dL Globulin 1.9 L (2-4) g/dL Albumin/Globulin Ratio 2.3 (1-3) Lipase 15 (11.0-82.0) U/L Beta HCG, Quant < 0.60 mIU/mL Result Diagrams: 09/03/18 12:54 09/03/18 12:54 Lab Statement: Any lab studies that have been ordered have been reviewed, and results considered in the medical decision making process. Abdominal Pain Fem Course/Dx - Course Course Of Treatment: During the question comes patient is evaluated for right- sided abdominal pain most notably between RUQ and the RLQ. Also associated with nausea and vomiting 1 this morning after having a large watery bowel movement. This was normal in color. She has a history of "bowel issues", but has never had lingering pain. She is concerned over an appendicitis. She denies any abdominal surgeries in the past. Denies any fevers, sweats, chills. On physical examination, patient appears well, in slight distress, however is nontoxic in appearance. Vital signs are stable patient remained afebrile. Lungs CTA, RRR. Tenderness between RUQ and the RLQ without discrete tenderness over McBurney's point. Negative Rovsing sign. Positive obturator, positive psoas. Negative Montez's. No guarding, swelling, or tenderness to the left side. Denies any urinary symptoms including back pain. 2 mg morphine and 4 mg Zofran given IV. IV fluids given. CT abdomen and pelvis obtained: Possible colitis without appendicitis. Appendix is normal. Discussed findings with patient. Discussed treatment options with patient and mother. Due to the potential colitis without further diarrhea to suggest infective colitis, patient will be given Zofran and pain control and will follow up with one of our GI specialists. She will be diagnosed with abdominal pain. Likely this is abdominal pain secondary to her bowel movement. She does feel improved with her pain medication and nausea medication given in the ED. - Diagnoses Provider Diagnoses: Abdominal pain, Colitis Discharge - Sign-Out/Discharge Documenting (check all that apply): Patient Departure - Discharge Plan Condition: Stable Disposition: HOME Prescriptions: Ondansetron ODT TAB* [Zofran 4 MG Odt TAB*] 4 mg PO Q6H PRN #12 tab.odt MDD 4 PRN Reason: Nausea traMADol TAB* [Ultram*] 50 mg PO Q6H PRN #12 tab MDD 4 PRN Reason: Pain Patient Education Materials: Colitis (ED) Referrals: Santiago Chase MD [Medical Doctor] - Meryl Cadena [Primary Care Provider] - Additional Instructions: Pain medication is given to you Take 1 tab up to four times daily as needed for pain Take the zofran as needed for nausea If you develop worsening symptoms - you need to return to the ED Follow up with GI - Billing Disposition and Condition Condition: STABLE Disposition: Home
[2018-09-03] MEDS ORDERED: Iohexol 300* (CONTRAST) 10 ML SDV IV ONE (14:37)
[2018-09-03] MEDS ORDERED: Morphine VIAL* 4 MG/ML VIAL (1 ml vial) IV ONE (14:37)
[2018-09-03] MEDS ORDERED: Ondansetron INJ* 2 MG/ML VIAL IV ONE (14:37)
[2018-09-03] MEDS ORDERED: NS 0.9% 1000 ML* 1,000 ML IV ONE (14:39)
[2018-09-03 15:41] LABS: Urine Appearance Turbid; Urine Bilirubin Negative (Negative); Urine Blood Negative (Negative); Urine Color Yellow; Urine Glucose Negative (Negative); Urine Ketones Negative (Negative); Urine Nitrite Negative (Negative); Urine Protein Negative (Negative); Urine Specific Gravity 1.009 (1.010-1.030); Urine Urobilinogen Negative (Negative)
[2018-09-03 16:14] VITALS: BP 102/60
== END 2018-09-03 16:14 | disposition home or self-care (01) ==
LOC: ED 11:56
DX: R10.31 Right lower quadrant pain (principal); K52.9 Noninfective gastroenteritis and colitis, unspecified; F17.210 Nicotine dependence, cigarettes, uncomplicated; D68.59 Other primary thrombophilia
CPT/HCPCS: 36415; 74177; 80053; 81003; 83605; 83690; 83735; 84702; 85025; 86140; 96361; 96374; 96375; 99283; J2270; J2405; Q9967

== ENCOUNTER 2018-11-06 19:29 | Emergency (ER) | payer OTHER ==
[2018-11-06] MEDS ORDERED: NS 0.9% 1000 ML** 1,000 ML IV ONE (20:29)
--- NOTE | 2018-11-06 20:40 | ED ---
GI/ HPI - HPI Summary HPI Summary: 28 year old female presents with lower abdominal pain for the past couple days. She states that she has been having diarrhea. She was on antibiotics a week ago. States that she currently has an infection in the left side of her scalp that is suppose to see neurosurgeon about. She denies any fevers. No cough. She admits to one episode of vomiting. She she has history of gastroparesis pain feels like cramps. She's had a decreased appetite. She denies any urinary symptoms. she denies any abnormal vaginal discharge. - History of Current Complaint Chief Complaint: EDAbdPain Time Seen by Provider: 11/06/18 20:18 Stated Complaint: STOMACH PAIN/DHIARREH PER PT Hx Last Menstrual Period: unsure, is on Depo, thinks she is due soon for the Depo (09/24/17) Pain Intensity: 4 - Additional Pertinent History Primary Care Physician: [facility] - Allergy/Home Medications Allergies/Adverse Reactions: Allergies Allergy/AdvReac Type Severity Reaction Status Date / Time amoxicillin Allergy Mild Rash Verified 11/06/18 19:37 miconazole Allergy Mild Hives Verified 11/06/18 19:37 oseltamivir [From Tamiflu] Allergy Mild Hives Verified 11/06/18 19:37 cephalexin [From Keflex] Allergy Hives Verified 11/06/18 19:37 diphenhydramine Allergy Anxiety Verified 11/06/18 19:37 [From Benadryl] metoclopramide [From Reglan] Allergy Tachycardia Verified 11/06/18 19:37 PMH/Surg Hx/FS Hx/Imm Hx Endocrine/Hematology History: Reports: Other Endocrine/Hematological Disorders - Protein C deficiency Denies: Hx Anticoagulant Therapy, Hx Diabetes, Hx Thyroid Disease Cardiovascular History: Reports: Other Cardiovascular Problems/Disorders - murmur Denies: Hx Hypertension, Hx Pacemaker/ICD Respiratory History: Denies: Hx Asthma, Hx Chronic Obstructive Pulmonary Disease (COPD) GI History: Denies: Hx Ulcer History: Denies: Hx Dialysis, Hx Renal Disease Musculoskeletal History: Denies: Hx Scoliosis Neurological History: Reports: Hx Migraine - complex, Hx Seizures, Other Neuro Impairments/Disorders - 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) Psychiatric History: Reports: Hx Eating Disorder Denies: Hx Anxiety, Hx Panic Disorder - Cancer History Cancer Type, 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 - Surgical History Surgery Procedure, Year, and Place: tonsillectomy, tumor removed from temporal lobe of brain (01/04/16) - Immunization History Date of Influenza Vaccine: unknown Infectious Disease History: No Infectious Disease History: Denies: Hx Clostridium Difficile, Hx Hepatitis, Hx Human Immunodeficiency Virus (HIV), Hx of Known/Suspected MRSA, Hx Shingles, Hx Tuberculosis, Traveled Outside the [place] in Last 30 Days - Family History Known Family History: Positive: None, Cardiac Disease, Hypertension, Diabetes, Other - Complex migrain (mother); Denies FHx of MRSA - Social History Alcohol Use: None Hx Substance Use: No Substance Use Type: Reports: None Hx Tobacco Use: Yes Smoking Status (MU): Light Every Day Tobacco Smoker Type: Cigarettes Amount Used/How Often: 1 pk/wk Have You Smoked in the Last Year: Yes Review of Systems Negative: Fever Negative: Chest Pain Negative: Shortness Of Breath Positive: Abdominal Pain, Vomiting, Diarrhea, Nausea All Other Systems Reviewed And Are Negative: Yes Physical Exam Triage Information Reviewed: Yes Vital Signs On Initial Exam: Initial Vitals Temp Pulse Resp BP Pulse Ox 97.5 F 100 16 125/80 100 11/06/18 19:30 11/06/18 19:30 11/06/18 19:30 11/06/18 19:30 11/06/18 19:30 Vital Signs Reviewed: Yes Appearance: Positive: Well-Appearing Skin: Positive: Warm, Dry Head/Face: Positive: Normal Head/Face Inspection Eyes: Positive: Normal, Conjunctiva Clear ENT: Positive: Pharynx normal Respiratory/Lung Sounds: Positive: Clear to Auscultation, Breath Sounds Present Cardiovascular: Positive: Normal, RRR Abdomen Description: Positive: Soft, Other: - tenderness lower abd Bowel Sounds: Positive: Present Musculoskeletal: Positive: Normal Neurological: Positive: Normal Psychiatric: Positive: Normal Diagnostics - Vital Signs Vital Signs Temp Pulse Resp BP Pulse Ox 11/06/18 20:19 84 111/67 100 11/06/18 20:18 90 100 11/06/18 19:30 97.5 F 100 16 125/80 100 - Laboratory Result Diagrams: 11/06/18 20:37 11/06/18 20:37 Lab Statement: Any lab studies that have been ordered have been reviewed, and results considered in the medical decision making process. - CT abd CT Interpretation Completed By: Radiologist Summary of CT Findings: IMPRESSION: No CT findings to correlate with patient's symptomatology. Re-Evaluation - Re-Evaluation First Eval Re-Evaluation Time: 23:55 Change: Improved Comment: feeling better after toradol, discussed results, patient did not have a bm will in ED. GIGU Course/Dx - Course Course Of Treatment: 28 year old female presents with lower abdominal pain for the past couple days. She states that she has been having diarrhea. She was on antibiotics a week ago. States that she currently has an infection in the left side of her scalp that is suppose to see neurosurgeon about. She denies any fevers. No cough. She admits to one episode of vomiting. She she has history of gastroparesis pain feels like cramps. She's had a decreased appetite. She denies any urinary symptoms. she denies any abnormal vaginal discharge. On exam has mild lower abdominal tenderness diffusely. wbc normal. CRP elevated. Gave fluids and toradol and feeling better. CT shows no acute findings. IV did inflitrate so treated such. patient states has had abd pain actually since sep so will GI referral if no improvement. patient understand and agrees with plan. - Diagnoses Differential Diagnoses - Female: Colitis, Diverticulitis, Urinary Tract Infection Provider Diagnoses: Abdominal pain, Diarrhea Discharge - Sign-Out/Discharge Documenting (check all that apply): Patient Departure Patient Received Moderate/Deep Sedation with Procedure: No - Discharge Plan Condition: Good Disposition: HOME Patient Education Materials: Abdominal Pain (ED) Referrals: Elena Cui MD [Medical Doctor] - Meryl Cadena [Primary Care Provider] - Additional Instructions: drink plenty of fluids take tyenlol or ibuprofen every 6 hours as needed for pain Follow up with GI if no improvement Return to ED if develop any new or worsening symptoms - Billing Disposition and Condition Condition: GOOD Disposition: Home
[2018-11-06 20:43] LABS: ABS Basophils 0 10^3/ul (0-0.2); ABS Eosinophils 0.2 10^3/ul (0-0.6); ABS Lymphocytes 1.4 10^3/ul (1.0-4.8); ABS Monocytes 0.9 10^3/ul (0-0.8); ABS Neutrophils 7.8 10^3/ul (1.5-7.7); ABS Nucleated RBC 0 10^3/ul; Eosinophil % 1.7 %; Hematocrit 38 % (35-47); Hemoglobin 13.4 g/dl (12.0-16.0); Lymphocyte % 13.9 %; Mean Corpuscular HGB Conc 35 g/dl (31-36); Mean Corpuscular Hemoglobin 32 pg (27-31); Mean Corpuscular Volume 90 fL (80-97); Mean Platelet Volume 8.6 fL (7.4-10.4); Nucleated Red Blood Cells % 0; Platelet Count 157 10^3/ul (150-450); Red Blood Count 4.22 10^6/ul (4.00-5.40); Red Cell Distribution Width 13 % (10.5-15); White Blood Count 10.4 10^3/ul (3.5-10.8)
[2018-11-06 21:01] LABS: ALT 14 U/L (7-52); AST 10 U/L (13-39); Albumin 4.7 g/dL (3.2-5.2); Albumin/Globulin Ratio 2.5 (1-3); Alkaline Phosphatase 48 U/L (34-104); Anion Gap 7 mmol/L (2-11); BUN/Creatinine Ratio 18.3 (8-20); Blood Urea Nitrogen 17 mg/dL (6-24); C Reactive Protein 15.39 mg/L (<8.01); CO2 Carbon Dioxide 20 mmol/L (22-32); Calcium 9.3 mg/dL (8.6-10.3); Chloride 110 mmol/L (101-111); EGFR African American 87.5 (>60); EGFR Non-African American 72.3 (>60); Globulin 1.9 g/dL (2-4); Glucose 88 mg/dL (70-100); Potassium 3.8 mmol/L (3.5-5.0); Sodium 137 mmol/L (135-145); Total Protein 6.6 g/dL (6.4-8.9)
[2018-11-06 21:07] LABS: HCG Pregnancy < 0.60 mIU/mL
[2018-11-06] MEDS ORDERED: Ketorolac INJ* 30 MG/ML 1 ML VIAL IV PUSH ONE (21:21)
[2018-11-06 21:33] LABS: Urine Appearance Clear; Urine Bacteria Absent (Absent); Urine Bilirubin Negative (Negative); Urine Blood 1+ (Negative); Urine Color Yellow; Urine Glucose Negative (Negative); Urine Ketones Trace (Negative); Urine Nitrite Negative (Negative); Urine Protein Negative (Negative); Urine Red Blood Cell Trace(0-2/hpf) (Absent); Urine Specific Gravity 1.025 (1.010-1.030); Urine Squamous Epithelial Cell Present (Absent); Urine Urobilinogen Negative (Negative); Urine White Blood Cell Absent (Absent)
[2018-11-06] MEDS ORDERED: Iohexol 300* (CONTRAST) 10 ML SDV IV ONE (22:02)
[2018-11-06 23:58] VITALS: BP 103/66
== END 2018-11-07 00:10 | disposition home or self-care (01) ==
LOC: ED 19:29
DX: R10.30 Lower abdominal pain, unspecified (principal); R19.7 Diarrhea, unspecified; R11.2 Nausea with vomiting, unspecified; Z85.038 Personal history of other malignant neoplasm of large intestine; F17.210 Nicotine dependence, cigarettes, uncomplicated
CPT/HCPCS: 36415; 74177; 80053; 81003; 81015; 83605; 83690; 84702; 85025; 86140; 96361; 96374; 99283; J1885; Q9967

== ENCOUNTER 2019-01-13 19:02 | Emergency (ER) | payer OTHER ==
--- NOTE | 2019-01-13 20:58 | ED ---
Head Injury - HPI Summary HPI Summary: 28-year-old female presents with head injury today. She states that she was working and stood up into a metal cabinet. She states she had a headache and felt very dizzy. She states she has history of brain surgery for a tumor. she states she's been having a little bit of confusion. She admits to photophobia. She has history of headaches. She denies any nausea vomiting. No loss consciousness. No neck pain. No other injury. - History Of Current Complaint Chief Complaint: EDHeadInjury Stated Complaint: HEAD INJURY PER PT Time Seen by Provider: 01/13/19 19:44 Hx Last Menstrual Period: unsure, is on Depo, thinks she is due soon for the Depo (09/24/17) Pain Intensity: 7 - Allergies/Home Medications Allergies/Adverse Reactions: Allergies Allergy/AdvReac Type Severity Reaction Status Date / Time amoxicillin Allergy Mild Rash Verified 01/13/19 19:15 miconazole Allergy Mild Hives Verified 01/13/19 19:15 oseltamivir [From Tamiflu] Allergy Mild Hives Verified 01/13/19 19:15 cephalexin [From Keflex] Allergy Hives Verified 01/13/19 19:15 diphenhydramine Allergy Anxiety Verified 01/13/19 19:15 [From Benadryl] metoclopramide [From Reglan] Allergy Tachycardia Verified 01/13/19 19:15 Home Medications: Home Medications clonazePAM [Clonazepam] 0.5 mg PO DAILY PRN 01/13/19 [History Confirmed 01/13/19 ] PMH/Surg Hx/FS Hx/Imm Hx Endocrine/Hematology History: Reports: Other Endocrine/Hematological Disorders - Protein C deficiency Denies: Hx Anticoagulant Therapy, Hx Diabetes, Hx Thyroid Disease Cardiovascular History: Reports: Other Cardiovascular Problems/Disorders - murmur Denies: Hx Hypertension, Hx Pacemaker/ICD Respiratory History: Denies: Hx Asthma, Hx Chronic Obstructive Pulmonary Disease (COPD) GI History: Denies: Hx Ulcer History: Denies: Hx Dialysis, Hx Renal Disease Musculoskeletal History: Denies: Hx Scoliosis Neurological History: Reports: Hx Migraine - complex, Hx Seizures, Other Neuro Impairments/Disorders - 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) Psychiatric History: Reports: Hx Eating Disorder Denies: Hx Anxiety, Hx Panic Disorder - Cancer History Cancer Type, 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 - Surgical History Surgery Procedure, Year, and Place: tonsillectomy, tumor removed from temporal lobe of brain (01/04/16) - Immunization History Date of Influenza Vaccine: unknown Infectious Disease History: Yes Infectious Disease History: Denies: Hx Clostridium Difficile, Hx Hepatitis, Hx Human Immunodeficiency Virus (HIV), Hx of Known/Suspected MRSA, Hx Shingles, Hx Tuberculosis, Traveled Outside the [place] in Last 30 Days - Family History Known Family History: Positive: None, Cardiac Disease, Hypertension, Diabetes, Other - Complex migrain (mother); Denies FHx of MRSA - Social History Alcohol Use: None Hx Substance Use: No Substance Use Type: Reports: None Hx Tobacco Use: Yes Smoking Status (MU): Light Every Day Tobacco Smoker Type: Cigarettes Amount Used/How Often: 1 pk/wk Have You Smoked in the Last Year: Yes Review of Systems Negative: Fever Negative: Chest Pain Negative: Shortness Of Breath Neurological: Other - dizziness Positive: Headache All Other Systems Reviewed And Are Negative: Yes Physical Exam Triage Information Reviewed: Yes Vital Signs On Initial Exam: Initial Vitals Temp Pulse Resp BP Pulse Ox 99.9 F 96 16 127/95 100 01/13/19 19:12 01/13/19 19:12 01/13/19 19:12 01/13/19 19:12 01/13/19 19:12 Vital Signs Reviewed: Yes Appearance: Positive: Well-Appearing Skin: Positive: Warm, Dry Head/Face: Positive: Normal Head/Face Inspection Eyes: Positive: Normal, Conjunctiva Clear ENT: Positive: Pharynx normal Neck: Positive: Other: - nontender neck Respiratory/Lung Sounds: Positive: Clear to Auscultation, Breath Sounds Present Cardiovascular: Positive: Normal, RRR Musculoskeletal: Positive: Normal Neurological: Positive: Sensory/Motor Intact, Alert, Oriented to Person Place, Time, CN Intact II-III Psychiatric: Positive: Normal - [place] Coma Scale Best Eye Response: 4 - Spontaneous Best Motor Response: 6 - Obeys Commands Best Verbal Response: 5 - Oriented Coma Scale Total: 15 Diagnostics - Vital Signs Vital Signs Temp Pulse Resp BP Pulse Ox 01/13/19 19:12 99.9 F 96 16 127/95 100 - Laboratory Lab Statement: Any lab studies that have been ordered have been reviewed, and results considered in the medical decision making process. - CT brain CT Interpretation Completed By: Radiologist Summary of CT Findings: IMPRESSION: 1. No acute intracranial abnormality. 2. Stable left temporal lobe resection changes. Head Injury Course/Dx Course Of Treatment: 28-year-old female presents with head injury today. She states that she was working and stood up into a metal cabinet. She states she had a headache and felt very dizzy. She states she has history of brain surgery for a tumor. she states she's been having a little bit of confusion. She admits to photophobia. She has history of headaches. She denies any nausea vomiting. No loss consciousness. No neck pain. No other injury. On exam has normal neuro exam. With previous history of brain surgery will get a CT. CT normal. gave concussion precautions. Has a follow-up with neurology tomorrow. Patient understands agrees with plan. - Diagnoses Differential Diagnosis/HQI/PQRI: Concussion Without LOC, Contusion, Intracranial Bleed Provider Diagnoses: Head injury Discharge - Sign-Out/Discharge Documenting (check all that apply): Patient Departure Patient Received Moderate/Deep Sedation with Procedure: No - Discharge Plan Condition: Good Disposition: HOME Patient Education Materials: Head Injury (ED) Forms: *Work Release Referrals: Meryl Cadena [Primary Care Provider] - Additional Instructions: Place ice on area as needed Take Tylenol for headache every 6 hours Modify activities as tolerated Follow up with primary within 5 days Return to ED if develop vomiting, severe headache, change in behavior, or any new or worsening symptoms - Billing Disposition and Condition Condition: GOOD Disposition: Home
[2019-01-13 21:27] VITALS: BP 97/61
== END 2019-01-13 21:27 | disposition home or self-care (01) ==
LOC: ED 19:02
DX: S09.90XA Unspecified injury of head, initial encounter (principal); W22.8XXA Striking against or struck by other objects, initial encounter; Y92.013 Bedroom of single-family (private) house as the place of occurrence of the external cause; F17.210 Nicotine dependence, cigarettes, uncomplicated
CPT/HCPCS: 70450; 99282

== ENCOUNTER 2019-02-18 13:24 | Emergency (ER) | payer OTHER ==
--- OUTSIDE RECORDS SUMMARY | 2019-02-18 13:54 | XMS REPORT | Continuity of Care Document ---
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 Onset: 2014 generalized seizure Migraine with aura Dixie Moss M.D. Onset: 06/15/2015 Anxiety Dixie Moss M.D. Onset: 03/07/2016 Photosensitivity Dixie Moss M.D. 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 [employer] Tobacco Use Start: Unknown Light tobacco smoker (10 or fewer cigarettes/day) Smoking Status Reviewed: 02/10/19 Light tobacco smoker (10 or fewer cigarettes/day) Smokeless Tobacco Never Used Smokeless Tobacco ETOH Use Rarely consumes alcohol Tobacco Use Start: Unknown Light tobacco smoker (10 or fewer cigarettes/day) Recreational Drug Use Denies Drug Use Exercise Type/Frequency Does not exercise Allergies, Adverse Reactions, Alerts Active Allergies Reaction Severity Comments Date Tamiflu 02/02/2014 Monistat 09/16/2015 Trileptal Thoughts of self-harm Severe 03/07/2016 Topamax Mood disturbance Severe 03/07/2016 Keppra Mood disturbance Severe 03/07/2016 Cephalexin 05/25/2016 Reglan tachycardia 12/18/2017 Diflucan Hives 02/05/2019 Benadryl 02/05/2019 Clindamycin 02/05/2019 Medications Active Medications SIG Qnty Indications Ordering Date Provider Naproxen 1 by mouth twice a 60tabs S80.02xA Luis F 06/24/2018 500mg day as needed pain MD Magalie Tablets Depo-Provera 150mg intramuscular Unknown every 3 months 150mg/ml Suspension Zonisamide 4 tab by mouth at Unknown 100mg night Capsules Sumatriptan take one tablet by Unknown Succinate mouth at the start of 50mg the headache; may Tablets repeat the dose in 2 hours if needed Clonazepam take 1/2 to 1 tablet Unknown 0.5mg as needed anxiety and Tablets sleep History Medications Ondansetron 1 up to three 30tabs G43.109 Dalia Dorantes 01/16/2018 - 4mg Tablets Dispers times a day as 06/03/2018 needed for nausea associated with migraine Rizatriptan Benzoate 1 by mouth twice 9tabs G43.109 Dalia Dorantes 2017 - 10mg a day as needed 06/03/2018 Tablets Dispers headache max 2 days a week Magnesium Oxide 1 by mouth every 30tabs G43.109 Dalia Dorantes 01/16/2018 - 400mg Tablets day 06/10/2018 Zonisamide 3 by mouth every 90caps G40.209 Dalia Dorantes 12/18/2017 - 100mg Capsules night at bedtime 02/09/2019 Lamotrigine ER take 1 a day with 30tabs G40.209 Dalia Dorantes 09/18/2017 - 100mg Tablets ER a 50mg tablet 12/17/2017 24HR Lamotrigine ER 1 by mouth once a 30tabs G40.209 Dalia Dorantes 09/18/2017 - 50mg Tablets ER day with 100mg MD 12/17/2017 24HR tablet Rizatriptan Benzoate 1 at onset of 9tabs G43.109 Dalia Dorantes, 09/18/2017 - 5mg migraine. may 01/16/2018 Tablets Dispers repeat in 2 hours if needed. do not use more than 2x/week Lamotrigine 1 tab by mouth at 30tabs G40.209 Dixie Adkins 07/19/2017 - 100mg Tablets bedtime every day Ajay 09/18/2017 MMichael Lamotrigine 4 tabs by mouth 120tabs G40.209 Dixie Adkins 01/16/2017 - 25mg Tablets every day as Ajay, 07/19/2017 directed MMichael Celexa take 1 by mouth 30tabs Dalia Dorantes 10/11/2015 - 10mg Tablets daily 03/03/2016 Phenytoin Sodium Extended 4 tabs by mouth 135caps G40.209 iDxie Adkins 2015 - 100mg every other day Ajay, 07/18/2017 Capsules (even days) M.DChase alternating with 5 tabs every other day (odd days) Trileptal 1 po bid 60tabs Severiano Breaux 07/27/2015 - 300mg Tablets Pia 10/05/2015 M.DChase Levetiracetam 1 by mouth q am 180tabs Dixie Adkins 06/15/2015 - 500mg Tablets Ajay 07/22/2015 M.DChase Topiramate 2-4 tabs by mouth 120tabs G40.201 Dixie Adkins 06/15/2015 - 25mg Tablets every day at [facility], 07/27/2015 bedtime as MMichael directed Rizatriptan Benzoate 1 by mouth as Unknown - 10mg needed for 02/09/2019 Tablets headache may repeat once in 2 hours max 2 days a week Magnesium 1 per day Unknown - 400mg Tablets 02/02/2019 Neomycin/Polymyxin/Dexame Unknown - thasone 02/09/2019 [id number] Ointment Ibuprofen Unknown - 800mg Tablets 12/17/2017 Lorazepam 1-2 tabs as Unknown - 0.5mg Tablets needed 02/09/2019 Paxil 1 by mouth every Unknown - 20mg Tablets day 02/28/2018 Chantix Starting Month Surinder, - Desean ARI Sheth 09/17/2017 0.5mg X 11 & 1 mg X 42 Tablets Bupropion HCL ER (SR) qd Surinder, - 150mg ARI Sheth 09/17/2017 Tablets ER 12HR Citalopram Hydrobromide 1 by mouth every Unknown - 20mg day 01/15/2017 Tablets Medroxyprogesterone 1 im q 3 months Unknown - Acetate 12/17/2017 150mg/ml Suspension Diflucan 1 by mouth x 1 Unknown - 200mg Tablets 10/05/2015 Nexplanon Unknown - 68mg Implant 07/14/2015 Depo-Provera Unknown - 06/14/2015 Tylenol prn Unknown - 02/09/2019 Medications Administered in Office Medication SIG Qnty Indications Ordering Provider Date Celestone 3 mg and 3mg DANNY Lema 02/02/2014 Injection Vital Signs Date Vital Result Comment 02/10/2019 9:16am Height 66 inches 5'6" Weight 126.50 lb Heart Rate 94 /min BP Systolic Sitting 104 mmHg BP Diastolic Sitting 76 mmHg Respiratory Rate 18 /min Body Temperature 99.0 F O2 % BldC Oximetry 99 % BMI (Body Mass Index) 20.4 kg/m2 06/24/2018 7:58am Height 66 inches 5'6" Weight 132.00 lb Heart Rate 76 /min BP Systolic Recheck 122 mmHg BP Diastolic Recheck 84 mmHg Respiratory Rate 16 /min Body Temperature 97.9 F BMI (Body Mass Index) 21.3 kg/m2 03/01/2018 1:43pm Height 66 inches 5'6" Weight 143.00 lb BP Systolic 112 mmHg BP Diastolic 60 mmHg BMI (Body Mass Index) 23.1 kg/m2 01/16/2018 3:44pm Height 66 inches 5'6" Weight 147.50 lb Heart Rate 62 /min BP Systolic 82 mmHg BP Diastolic 50 mmHg BMI (Body Mass Index) 23.8 kg/m2 12/18/2017 9:23am Height 66 inches 5'6" Weight 153.25 lb Heart Rate 78 /min BP Systolic 118 mmHg BP Diastolic 82 mmHg BMI (Body Mass Index) 24.7 kg/m2 09/18/2017 9:32am Height 66 inches 5'6" Weight 148.00 lb Heart Rate 77 /min BP Systolic Sitting 110 mmHg BP Diastolic Sitting 72 mmHg Respiratory Rate 16 /min BMI (Body Mass Index) 23.9 kg/m2 07/19/2017 8:34am Height 66 inches 5'6" Weight 149.00 lb Heart Rate 80 /min BP Systolic Sitting 100 mmHg BP Diastolic Sitting 66 mmHg Respiratory Rate 12 /min BMI (Body Mass Index) 24.0 kg/m2 01/16/2017 8:42am Height 66 inches 5'6" Weight 145.00 lb Heart Rate 68 /min BP Systolic Sitting 108 mmHg BP Diastolic Sitting 76 mmHg Respiratory Rate 14 /min BMI (Body Mass Index) 23.4 kg/m2 05/25/2016 11:24am Height 66 inches 5'6" Weight 135.00 lb Heart Rate 56 /min BP Systolic Sitting 128 mmHg BP Diastolic Sitting 64 mmHg Respiratory Rate 14 /min BMI (Body Mass Index) 21.8 kg/m2 03/07/2016 3:47pm Height 66 inches 5'6" Weight 130.00 lb Heart Rate 80 /min BP Systolic Sitting 106 mmHg BP Diastolic Sitting 64 mmHg Respiratory Rate 16 /min BMI (Body Mass Index) 21.0 kg/m2 09/16/2015 2:29pm Height 66 inches 5'6" Weight 120.00 lb Heart Rate 64 /min BP Systolic Sitting 118 mmHg BP Diastolic Sitting 60 mmHg Respiratory Rate 14 /min BMI (Body Mass Index) 19.4 kg/m2 06/15/2015 9:01am Height 66 inches 5'6" Weight 120.00 lb Heart Rate 72 /min BP Systolic Sitting 102 mmHg BP Diastolic Sitting 62 mmHg Respiratory Rate 14 /min BMI (Body Mass Index) 19.4 kg/m2 02/02/2014 2:21pm Height 66 inches 5'6" Heart Rate 87 /min BP Systolic 92 mmHg BP Diastolic 65 mmHg Results Test Date Facility Test Result H/L Range Note CBC Auto Diff 05/24/2016 [facility] White Blood 7.0 10^3/uL N 3.5-10.[address] [place] [address] [phone] Red Blood Count 4.68 10^6/uL N 4.0-5.4 Hemoglobin 13.9 g/dL N 12.0-16.0 Hematocrit 41 % N 35-47 Mean Corpuscular Volume 87 fL N 80-97 Mean Corpuscular Hemoglobin 30 pg N 27-31 Mean Corpuscular HGB Conc 34 g/dL N 31-36 Red Cell Distribution Width 14 % N 10.5-15 Platelet Count 187 10^3/uL N 150-450 Mean Platelet Volume 9 um3 N 7.4-10.4 Abs Neutrophils 4.5 10^3/uL N 1.5-7.7 Abs Lymphocytes 1.2 10^3/uL N 1.0-4.8 Abs Monocytes 0.6 10^3/uL N 0-0.8 Abs Eosinophils 0.6 10^3/uL N 0-0.6 Abs Basophils 0 10^3/uL N 0-0.2 Abs Nucleated RBC 0 10^3/uL N Granulocyte % 65.0 % N 38-83 Lymphocyte % 17.2 % Low 25-47 Monocyte % 9.2 % High 1-9 Eosinophil % 7.9 % High 0-6 Basophil % 0.7 % N 0-2 Nucleated Red Blood Cells % 0 N Comp Metabolic Panel 05/24/2016 [facility] Sodium 137 mmol/L N 133-[address] [place] [address] [phone] Potassium 3.8 mmol/L N 3.5-5.0 Chloride 106 mmol/L N 101-111 Co2 Carbon Dioxide 25 mmol/L N 22-32 Anion Gap 6 mmol/L N 2-11 Glucose 56 mg/dL Low 70-100 Blood Urea Nitrogen 12 mg/dL N 6-24 Creatinine 0.75 mg/dL N 0.51-0.95 BUN/Creatinine Ratio 16.0 N 8-20 Calcium 9.3 mg/dL N 8.6-10.3 Total Protein 6.6 g/dL N 6.4-8.9 Albumin 4.5 g/dL N 3.2-5.2 Globulin 2.1 g/dL N 2-4 Albumin/Globulin Ratio 2.1 N 1-3 Total Bilirubin 0.70 mg/dL N 0.2-1.0 Alkaline Phosphatase 64 U/L N 34-104 Alt 20 U/L N 7-52 Ast 13 U/L N 13-39 Egfr Non- 94.9 N >60 Egfr 122.1 N >60 1 Laboratory 05/24/2016 [facility] Phenytoin 8.2 Low 10-20 2 test finding [address] (Dilantin) g/[place] [address] [phone] Laboratory 02/22/2016 [facility] Phenytoin 10.6 N 10-20 test finding [address] (Dilantin) g/[place] [address] [phone] Phenytoin Free 11/16/2015 [facility] Free Phenytoin <0.8 Abnormal 1.0 - & Total [address] Level g/mL 2.0 [place], [place] [id number] [phone] Total Phenytoin 6.9 g/mL Abnormal 3 Laboratory test 10/08/2015 [facility] Phenytoin 7.3 g/mL Low 10-[address] (Dilantin) [place] [address] [phone] Laboratory test 10/04/2015 [facility] Phenytoin < 2.5 Low 10- 20 [address] (Dilantin) g/[place] [address] [phone] CBC Auto Diff 09/16/2015 [facility] White Blood 10.6 N 3.5- 10.[address] Count 10^3/[place] [address] [phone] Red Blood Count 4.42 10^6/uL N 4.0-5.4 Hemoglobin 13.9 g/dL N 12.0-16.0 Hematocrit 41 % N 35-47 Mean Corpuscular Volume 93 fL N 80-97 Mean Corpuscular Hemoglobin 31 pg N 27-31 Mean Corpuscular HGB Conc 34 g/dL N 31-36 Red Cell Distribution Width 12 % N 10.5-15 Platelet Count 230 10^3/uL N 150-450 Mean Platelet Volume 9 um3 N 7.4-10.4 Abs Neutrophils 7.3 10^3/uL N 1.5-7.7 Abs Lymphocytes 2.0 10^3/uL N 1.0-4.8 Abs Monocytes 0.7 10^3/uL N 0-0.8 Abs Eosinophils 0.5 10^3/uL N 0-0.6 Abs Basophils 0.1 10^3/uL N 0-0.2 Abs Nucleated RBC 0.01 10^3/uL N Granulocyte % 69.0 % N 38-83 Lymphocyte % 19.2 % Low 25-47 Monocyte % 6.8 % N 1-9 Eosinophil % 4.4 % N 0-6 Basophil % 0.6 % N 0-2 Nucleated Red Blood Cells % 0.1 N Comp Metabolic Panel 09/16/2015 [facility] Sodium 137 mmol/L N 133-145 [address] [place] [address] [phone] Potassium 4.0 mmol/L N 3.5-5.0 Chloride 104 mmol/L N 101-111 Co2 Carbon Dioxide 27 mmol/L N 22-32 Anion Gap 6 mmol/L N 2-11 Glucose 81 mg/dL N 70-100 Blood Urea Nitrogen 10 mg/dL N 6-24 Creatinine 0.68 mg/dL N 0.51-0.95 BUN/Creatinine Ratio 14.7 N 8-20 Calcium 9.7 mg/dL N 8.6-10.3 Total Protein 6.7 g/dL N 6.4-8.9 Albumin 4.7 g/dL N 3.2-5.2 Globulin 2.0 g/dL N 2-4 Albumin/Globulin Ratio 2.4 N 1-3 Total Bilirubin 0.60 mg/dL N 0.2-1.0 Alkaline Phosphatase 49 U/L N 34-104 Alt 16 U/L N 7-52 Ast 13 U/L N 13-39 Egfr Non- 107.2 N >60 Egfr 137.9 N >60 5 1 Because ethnic data is [...] of medication Copy Result to: MERYL CADENA ([id number]) 3 REFERENCE VALUE 10.0 - 20.0 Test Performed by: [place] [address] It Teacher: Jesse Lopez II, M.D., Ph.D. 4 Prior [...] Kidney failure <15 (or dialysis) Procedures Date Code Description Status 07/27/2015 93415 EEG Recording Awake & Drowsy Completed 05/29/2015 05682 EEG Recording Awake & Asleep Completed 07/17/2014 91630 ECHO Transthorasic Realtime 2D W Doppler & Color Flow Hosp Completed 02/02/2014 25907 Inject Tendon Sheath Or Ligament Aponeurosis Eg Plantar Completed Fascia Encounters Type Date Location Provider Dx Diagnosis Office Visit 06/24/2018 Orthopedic Luis F S80.02xA Contusion of left 8:00a [facility] AT MD Magalie knee, initial [place] encounter M22.2x2 Patellofemoral disorders, left knee Office Visit 03/01/2018 Neurohospitalist Dalia G43.109 Migraine with 2:00p Clinic MD Jayna aura, not intractable, w/o status migrainosus G40.209 Local-rel symptc epi w cmplx prt seiz,not ntrct,w/o stat epi Z86.011 Personal history of benign neoplasm of the brain Office Visit 01/16/2018 Neurohospitalist Dalia G43.109 Migraine with 4:00p Clinic MD Jayna aura, not intractable, w/o status migrainosus G40.209 Local-rel symptc epi w cmplx prt seiz,not ntrct,w/o stat epi Z86.011 Personal history of benign neoplasm of the brain Office Visit 12/18/2017 Neurohospitalist Dalia Dorantes, G40.209 Local-rel 9:30a Clinic symptc epi w cmplx prt seiz,not ntrct,w/o stat epi G43.109 Migraine with aura, not intractable, w/o status migrainosus Z86.011 Personal history of benign neoplasm of the brain F41.9 Anxiety disorder, unspecified Office Visit 09/18/2017 Neurohospitalist Dalia Dorantes, G40.209 Local-rel 9:30a Clinic symptc epi w cmplx prt seiz,not ntrct,w/o stat epi G43.109 Migraine with aura, not intractable, w/o status migrainosus Z86.011 Personal history of benign neoplasm of the brain F41.9 Anxiety disorder, unspecified Office Visit 07/19/2017 8:45a Bill Adkins G40.209 Local-rel [facility] Marycruz Moss M.D. symptc epi w cmplx prt seiz,not ntrct,w/o stat epi G43.109 Migraine with aura, not intractable, w/o status migrainosus Z86.011 Personal history of benign neoplasm of the brain Office Visit 01/16/2017 8:45a Bill Adkins G40.209 Local-rel [facility] Marycruz Moss M.D. 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 symptc epi w cmplx prt seiz,not ntrct,w/o stat epi Z86.011 Personal history of benign neoplasm of the brain Z79.899 Other senior living (current) drug therapy Office Visit 03/07/2016 3:45p Russell Vaughn Adkins G40.209 Local-rel [facility] Moss M.D. symptc epi w cmplx prt seiz,not ntrct,w/o stat epi F41.9 Anxiety disorder, unspecified Z86.011 Personal history of benign neoplasm of the brain Office Visit 09/16/2015 Russell Dixie Adkins G43.909 Migraine, unsp, 2:30p Vaughn Moss M.D. not intractable, [facility] without status migrainosus G40.209 Local-rel symptc epi w cmplx prt seiz,not ntrct,w/o stat epi Office Visit 07/27/2015 Neurohospitalist Severiano Breaux G40.209 Local-rel 1:41p Ian Palacio M.D. symptc epi w cmplx prt seiz,not ntrct,w/o stat epi R94.01 Abnormal electroencephalogram [EEG] Office Visit 06/15/2015 Russellreji Adkins G43.109 Migraine with 9:00a Vaughn Moss M.D. aura, not [facility] intractable, w/o status migrainosus G40.209 Local-rel symptc epi w cmplx prt seiz,not ntrct,w/o stat epi Office Visit 05/29/2015 [facility]hospital[facility] Dixie Adkins R56.9 Unspecified 12:00p Ian Moss M.D. convulsions R55 Syncope and collapse Office Visit 05/29/2015 12:45p [facility] Mark 780.39 Convulsions Other Assoc,arcelia Barry M.D. Hospitalists 289.81 primary hypercoagulable state 305.1 Tobacco Use Disorder Office Visit 05/28/2015 Neurohospitalist Dixie Adkins R56.9 Unspecified 11:59a Clinic Leonor Moss convulsions R55 Syncope and collapse Office Visit 05/27/2015 [facility] [place] 780.39 Convulsions 12:44p arcelia Proctor II, M.D. Other Hospitalists 784.0 Headache Office Visit 02/02/2014 Orthopedic Cynthiaeloisa Guerra, 727.04 Tenosynovitis 2:00p [facility] Radial Styloid [facility] Plan of Treatment Future Appointment(s):03/03/2019 8:30 am - Ree Vallejo MD at [facility]02/10/2019 - Cayetano Molina, MDD48.61 Neoplasm of uncertain behavior of right breastReferral:Yaritza Moreno MD, Surgery,GeneralFollow up: Please schedule Mammogram and right breast sonogram as soon as possible. Please schedule appt with [facility] in [place] as soon as possible ( after the Mammogram).Z01.411 Encounter for gynecological examination (general) ( routine)New Labs:Cytology, Ordered: 02/10/19Comments:Plans to continue Depo Provera for control until tubal ligation is done.Z30.2 Encounter for sterilizationFollow up:Will sign [place] tub[place] papers today. Have to wait at least 30 days. Will schedule tubal ligation aftereval for breast is complete.
[2019-02-18 16:20] VITALS: BP 97/68
--- NOTE | 2019-02-20 06:48 | ED ---
Upper Extremity Pain - HPI Summary HPI Summary: Patient is a 28-year-old female presenting to the ED after a fall at work. She is endorsing pain to the volar side of her wrist. There is a small deformity with swelling to the dorsum of the wrist without pain or deformity to the dorsum of the wrist. She denies any hand pain. She denies any numbness or tingling. She thinks she fell on an outstretched arm. Denies any pain to the forearm or elbow. Pain is currently rated a 6/10, throbbing. - History of Current Complaint Chief Complaint: EDExtremityUpper Stated Complaint: R WRIST INJURY FROM WORK PER PT Time Seen by Provider: 02/18/19 13:57 Hx Obtained From: Patient Hx Last Menstrual Period: unsure, is on Depo, thinks she is due soon for the Depo (09/24/17) Onset/Duration: Started Hours Ago Timing: Constant Severity Initially: Moderate Severity Currently: Moderate Pain Location: Wrist Character: Aching Aggravating Factor(s): Nothing Alleviating Factor(s): Rest, Ice Associated Signs & Symptoms: Positive: Swelling. Negative: Redness, Bruising, Weakness, Numbness/Tingling Related History: Dominant Hand Right - Risk Factors Non-Orthopedic Risk Factor: Negative DVT Risk Factors: Negative Septic Arthritis Risk Factor: Negative Compartment Syndrome Risk Factors: Pain - Allergies/Home Medications Allergies/Adverse Reactions: Allergies Allergy/AdvReac Type Severity Reaction Status Date / Time amoxicillin Allergy Mild Rash Verified 02/18/19 13:29 miconazole Allergy Mild Hives Verified 02/18/19 13:29 oseltamivir [From Tamiflu] Allergy Mild Hives Verified 02/18/19 13:29 cephalexin [From Keflex] Allergy Hives Verified 02/18/19 13:29 diphenhydramine Allergy Anxiety Verified 02/18/19 13:29 [From Benadryl] metoclopramide [From Reglan] Allergy Tachycardia Verified 02/18/19 13:29 PMH/Surg Hx/FS Hx/Imm Hx Previously Healthy: Yes Endocrine/Hematology History: Reports: Other Endocrine/Hematological Disorders - Protein C deficiency Denies: Hx Anticoagulant Therapy, Hx Diabetes, Hx Thyroid Disease Cardiovascular History: Reports: Other Cardiovascular Problems/Disorders - murmur Denies: Hx Hypertension, Hx Pacemaker/ICD Respiratory History: Denies: Hx Asthma, Hx Chronic Obstructive Pulmonary Disease (COPD) GI History: Denies: Hx Ulcer History: Denies: Hx Dialysis, Hx Renal Disease Musculoskeletal History: Denies: Hx Scoliosis Neurological History: Reports: Hx Migraine - complex, Hx Seizures, Other Neuro Impairments/Disorders - 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) Psychiatric History: Reports: Hx Eating Disorder Denies: Hx Anxiety, Hx Panic Disorder - Cancer History Cancer Type, 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 - Surgical History Surgery Procedure, Year, and Place: tonsillectomy, tumor removed from temporal lobe of brain (01/04/16) - Immunization History Date of Influenza Vaccine: unknown Hx Pertussis Vaccination: No Immunizations Up to Date: Yes Infectious Disease History: No Infectious Disease History: Denies: Hx Clostridium Difficile, Hx Hepatitis, Hx Human Immunodeficiency Virus (HIV), Hx of Known/Suspected MRSA, Hx Shingles, Hx Tuberculosis, Traveled Outside the [place] in Last 30 Days - Family History Known Family History: Positive: None, Cardiac Disease, Hypertension, Diabetes, Other - Complex migrain (mother); Denies FHx of MRSA - Social History Occupation: Employed Full-time Lives: With Family Alcohol Use: None Hx Substance Use: No Substance Use Type: Reports: None Hx Tobacco Use: Yes Smoking Status (MU): Light Every Day Tobacco Smoker Type: Cigarettes Amount Used/How Often: 1 pk/wk Have You Smoked in the Last Year: Yes Review of Systems Constitutional: Negative Negative: Fever, Chills, Fatigue, Skin Diaphoresis Negative: Palpitations, Chest Pain Negative: Shortness Of Breath, Cough Genitourinary: Negative Positive: no symptoms reported, see HPI Positive: Arthralgia - right volar wrist pain and deformity (swelling). Negative: Myalgia Skin: Negative All Other Systems Reviewed And Are Negative: Yes Physical Exam Triage Information Reviewed: Yes Vital Signs On Initial Exam: Initial Vitals Temp Pulse Resp BP Pulse Ox 98.2 F 83 16 103/74 100 02/18/19 13:27 02/18/19 13:27 02/18/19 13:27 02/18/19 13:27 02/18/19 13:27 Vital Signs Reviewed: Yes Appearance: Positive: Well-Appearing, Well-Nourished Skin: Positive: Warm, Skin Color Reflects Adequate Perfusion Head/Face: Positive: Normal Head/Face Inspection Eyes: Positive: EOMI, Conjunctiva Clear Neck: Positive: Supple, No Lymphadenopathy Respiratory/Lung Sounds: Positive: Clear to Auscultation, Breath Sounds Present Cardiovascular: Positive: RRR, Pulses are Symmetrical in both Upper and Lower Extremities Musculoskeletal: Positive: Pain @ - right volar wrist pain and deformity ( swelling) Neurological: Positive: Sensory/Motor Intact, Alert, Oriented to Person Place, Time, Speech Normal Psychiatric: Positive: Affect/Mood Appropriate Diagnostics - Vital Signs Vital Signs Temp Pulse Resp BP Pulse Ox 02/18/19 16:19 97.5 F 60 14 97/68 100 02/18/19 13:27 98.2 F 83 16 103/74 100 - Laboratory Lab Statement: Any lab studies that have been ordered have been reviewed, and results considered in the medical decision making process. Course/Dx - Course Course Of Treatment: Patient's evaluated for right volar wrist pain and swelling. Xray obtained and shows no evidence of fx. flexion and extension of the wrist with discomfort to the volar side. There is small deformity to the right volar side of the wrist with a 1 cm swelling to this area. Pt is given wrist splint. She will f/u with ortho. - Diagnoses Differential Diagnosis/HQI/PQRI: Positive: Fracture (Open), Hematoma, Strain, Sprain Provider Diagnoses: Wrist pain Discharge - Sign-Out/Discharge Documenting (check all that apply): Patient Departure Patient Received Moderate/Deep Sedation with Procedure: No - Discharge Plan Condition: Good Disposition: HOME Prescriptions: traMADol TAB* [Ultram*] 50 mg PO Q8H PRN #6 tab MDD 3 PRN Reason: Pain Patient Education Materials: Wrist Injury (ED) Forms: *Work Release Referrals: Mark Douglas MD [Medical Doctor] - No Primary Care Phys,NOPCP [Primary Care Provider] - Additional Instructions: Please follow up with Dr. Douglas or Dr. Anaya Ibuprofen 600mg three times daily for inflammation Tramadol 3x daily as needed for pain - Billing Disposition and Condition Condition: GOOD Disposition: Home
== END 2019-02-18 16:19 | disposition home or self-care (01) ==
LOC: ED 13:24
DX: M25.531 Pain in right wrist (principal); F17.210 Nicotine dependence, cigarettes, uncomplicated; W19.XXXA Unspecified fall, initial encounter; Y99.0 Civilian activity done for income or pay
CPT/HCPCS: 99282

== ENCOUNTER 2019-08-04 11:19 | Emergency (ER) | payer OTHER ==
--- NOTE | 2019-08-04 11:26 | ED ---
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 She was scheduled to have an ultrasound of her gallbladder as well as pelvic ultrasound to evaluate recently diagnosed ovarian cyst performed due to her continuing abdominal pain. She states she has had abdominal pain for approximately 3 weeks in her lower abdomen. She denies fever, chest pain, shortness of breath, changes in bowel habits, vaginal discharge or bleeding. She denies additional drug use, smoking, alcohol use. She states she had a bilateral tubal ligation in April 25, 2019. - History of Current Complaint Chief Complaint: EDAbdPain Stated Complaint: ABD PAIN PER PT Hx Obtained From: Patient Hx Last Menstrual Period: unsure, is on Depo, thinks she is due soon for the Depo (09/24/17) Onset/Duration: Lasting Weeks Timing: Constant Severity Initially: Mild Severity Currently: Moderate Pain Intensity: 4 Pain Scale Used: 0-10 Numeric Location: Discrete At: RLQ, Discrete At: LLQ Radiates: No Character: Cramping Associated Signs and Symptoms: Positive: Vaginal Discharge - "brown spotting" which she endorses is a chronic issue.. Negative: Fever, Cough, Chest Pain, Back Pain, Constipation, Blood in Stool, Urinary Symptoms Allergies/Adverse Reactions: Allergies Allergy/AdvReac Type Severity Reaction Status Date / Time amoxicillin Allergy Mild Rash Verified 08/04/19 11:25 miconazole Allergy Mild Hives Verified 08/04/19 11:25 oseltamivir [From Tamiflu] Allergy Mild Hives Verified 08/04/19 11:25 cephalexin [From Keflex] Allergy Hives Verified 08/04/19 11:25 clindamycin Allergy See Comment Verified 08/04/19 11:25 diphenhydramine Allergy Anxiety Verified 08/04/19 11:25 [From Benadryl] fluconazole [From Diflucan] Allergy See Comment Verified 08/04/19 11:25 levetiracetam [From Keppra] Allergy Unknown Verified 08/04/19 11:25 Reaction Details metoclopramide [From Reglan] Allergy Tachycardia Verified 08/04/19 11:25 oxcarbazepine Allergy Altered Verified 08/04/19 11:25 [From Trileptal] Mental Status topiramate [From Topamax] Allergy Altered Verified 08/04/19 11:25 Mental Status Home Medications: Home Medications Clobazam TAB (NF) [Onfi TAB(NF)] 15 mg PO DAILY 08/04/19 [History Confirmed 10/22] Ondansetron TAB* [Zofran 4 MG Tab*] 4 mg PO Q6H PRN 08/04/19 [History Confirmed 08/04/19] SUMAtriptan TAB* [Imitrex TAB*] 50 mg PO ONCE PRN 08/04/19 [History Confirmed ] Sertraline* [Zoloft*] 50 mg PO DAILY 08/04/19 [History Confirmed 08/04/19] PMH/Surg Hx/FS Hx/Imm Hx Endocrine/Hematology History: Reports: Other Endocrine/Hematological Disorders - Protein C deficiency Denies: Hx Anticoagulant Therapy, Hx Diabetes, Hx Thyroid Disease Comment Only: Hx Anemia - PROTEIN C.DEFICIENCY Cardiovascular History: Reports: Other Cardiovascular Problems/Disorders - murmur Denies: Hx Hypertension, Hx Pacemaker/ICD Respiratory History: Denies: Hx Asthma, Hx Chronic Obstructive Pulmonary Disease (COPD) GI History: Reports: Other GI Disorders - GASTROPARESIS Denies: Hx Ulcer History: Denies: Hx Dialysis, Hx Renal Disease Musculoskeletal History: Denies: Hx Scoliosis Sensory History: Reports: Hx Contacts or Glasses - GLASSES Denies: Hx Hearing Aid Opthamlomology History: Reports: Hx Contacts or Glasses - GLASSES Neurological History: Reports: Hx Headaches - SEIZURE HEADACHES, Hx Migraine - complex, Hx Seizures, Other Neuro Impairments/Disorders - 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) Psychiatric History: Reports: Hx Eating Disorder Denies: Hx Anxiety, Hx Panic Disorder - Cancer History Cancer Type, 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 - Surgical History Surgery Procedure, Year, and Place: tonsillectomy, tumor removed from temporal lobe of brain (01/04/16) Hx Anesthesia Reactions: No - Immunization History Date of Influenza Vaccine: unknown Infectious Disease History: No Infectious Disease History: Denies: Hx Clostridium Difficile, Hx Hepatitis, Hx Human Immunodeficiency Virus (HIV), Hx of Known/Suspected MRSA, Hx Shingles, Hx Tuberculosis, Traveled Outside the [place] in Last 30 Days - Family History Known Family History: Positive: None, Cardiac Disease, Hypertension, Diabetes, Other - Complex migrain (mother); Denies FHx of MRSA - Social History Alcohol Use: None Hx Substance Use: No Substance Use Type: Reports: None Hx Tobacco Use: Yes Smoking Status (MU): Light Every Day Tobacco Smoker Type: Cigarettes Amount Used/How Often: 1 pk/wk Have You Smoked in the Last Year: Yes Review of Systems Constitutional: Negative Eyes: Negative ENT: Negative Cardiovascular: Negative Respiratory: Negative Positive: Abdominal Pain. Negative: Vomiting, Diarrhea, Nausea Genitourinary: Negative Musculoskeletal: Negative Skin: Negative Neurological: Negative Psychological: Normal All Other Systems Reviewed And Are Negative: Yes Physical Exam Triage Information Reviewed: Yes Vital Signs On Initial Exam: Initial Vitals Temp Pulse Resp BP Pulse Ox 98.9 F 100 17 114/73 98 08/04/19 11:21 08/04/19 11:21 08/04/19 11:21 08/04/19 11:21 08/04/19 11:21 Vital Signs Reviewed: Yes Appearance: Positive: Well-Appearing, No Pain Distress, Well-Nourished Skin: Positive: Warm, Skin Color Reflects Adequate Perfusion Eyes: Positive: EOMI, SHELDON ENT: Positive: Hearing grossly normal Respiratory/Lung Sounds: Positive: Clear to Auscultation, Breath Sounds Present Cardiovascular: Positive: RRR, S1, S2 Abdomen Description: Positive: Soft, Other: - Visualization shows no ecchymosis or masses. Auscultation reveals normoactive bowel sounds. Palpation reveals mild tenderness along the lower abdomen. Negative Rovsing, psoas, obturator, Montez's, McBurney's sign. Negative: CVA Tenderness (R), CVA Tenderness (L), Distended, Guarding, McBurney's Point Tenderness Bowel Sounds: Positive: Present Musculoskeletal: Positive: Strength/ROM Intact Neurological: Positive: Sensory/Motor Intact, Alert, Oriented to Person Place, Time, Speech Normal Psychiatric: Positive: Normal AVPU Assessment: Alert Procedures - Sedation Patient Received Moderate/Deep Sedation with Procedure: No Diagnostics - Vital Signs Vital Signs Temp Pulse Resp BP Pulse Ox 08/04/19 11:21 98.9 F 100 17 114/73 98 - Laboratory Result Diagrams: 08/04/19 12:00 08/04/19 12:00 Lab Statement: Any lab studies that have been ordered have been reviewed, and results considered in the medical decision making process. Abdominal Pain Fem Course/Dx - Course Course Of Treatment: Patient was evaluated in the emergency department for abdominal pain and testing ordered by her PCP. Patient was seen and evaluated her vitals were stable. Laboratory results show no leukocytosis with white blood cell count of 6.1, CRP is 1.98 and WLN. No evidence of anemia with H&H 12.3/35. There are no significant electrolyte abnormalities. Gallbladder ultrasound shows no acute sonographic pathology. Pelvic ultrasound shows a 2.7 cm simple cyst on the left ovary. There is no sonographic features of torsion. Patient has no acute medical problems requiring intervention at this time. She is to follow-up with her primary care provider for follow up of these results and evaluation and management of her symptoms. She was told to return to the emergency department immediately if she developed any new or worsening symptoms - Diagnoses Differential Diagnosis: Positive: Gall Bladder Disease, Ovarian Cyst, Renal Colic Provider Diagnoses: Ovarian cyst Discharge ED - Sign-Out/Discharge Documenting (check all that apply): Patient Departure - Discharge Plan Condition: Stable Disposition: HOME Patient Education Materials: Ovarian Cyst (ED) Referrals: Meryl Cadena [Primary Care Provider] - 2 Days Additional Instructions: you were seen in the emergency department today for abdominal pain and testing ordered by your physician. Her laboratory studies returned showing no significant abnormalities. Imaging showed no acute pathology of the gallbladder however there was a 2.7 cm ovarian cyst on the left side. There appeared to be in no medical pathology requiring immediate medical intervention at this time. Please follow up with your primary care provider with these results and further management of your symptoms. Please return to the emergency department immediately if you develop any new or worsening symptoms. - Billing Disposition and Condition Condition: STABLE Disposition: Home
[2019-08-04 12:09] LABS: ABS Eosinophils 0.1 10^3/ul (0-0.6); ABS Lymphocytes 1.1 10^3/ul (1.0-4.8); ABS Monocytes 0.4 10^3/ul (0-0.8); ABS Neutrophils 4.5 10^3/ul (1.5-7.7); Eosinophil % 1.5 %; Hematocrit 35 % (35-47); Hemoglobin 12.3 g/dL (12.0-16.0); Lymphocyte % 17.4 %; Mean Corpuscular HGB Conc 35 g/dL (31-36); Mean Corpuscular Hemoglobin 32 pg (27-31); Mean Corpuscular Volume 92 fL (80-97); Mean Platelet Volume 8.3 fL (7.4-10.4); Nucleated Red Blood Cells % 0.1; Platelet Count 139 10^3/uL (150-450); Red Blood Count 3.86 10^6 /uL (3.70-4.87); Red Cell Distribution Width 12 % (10-15); White Blood Count 6.1 10^3/uL (3.5-10.8)
[2019-08-04 12:26] LABS: Albumin 4.1 g/dL (3.2-5.2); Albumin/Globulin Ratio 2.4 (1-3); BUN/Creatinine Ratio 6.5 (8-20); C Reactive Protein 1.98 mg/L (<8.01); EGFR African American 108.8 (>60); EGFR Non-African American 89.9 (>60); Globulin 1.7 g/dL (2-4); Potassium 3.6 mmol/L (3.5-5.0); Total Bilirubin 0.4 mg/dL (0.2-1.0); Total Protein 5.8 g/dL (6.4-8.9)
[2019-08-04 14:16] VITALS: BP 91/58
--- OUTSIDE RECORDS SUMMARY | 2019-08-05 16:23 | XMS REPORT | Continuity of Care Document ---
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 Onset: 2014 generalized seizure Migraine with aura Dixie Moss M.D. Onset: 06/15/2015 Anxiety Dixie Moss M.D. Onset: 03/07/2016 Photosensitivity Dixie Moss M.D. Onset: 01/16/2017 History of benign neoplasm of brain Dalia Dorantes MD Onset: 09/18/2017 Social History Type Date Description Comments Sex Unknown Tobacco Use Start: Unknown Light tobacco smoker (10 or fewer cigarettes/day) Smoking Status Reviewed: 08/05/19 Light tobacco smoker (10 or fewer cigarettes/day) [...] Medications Active Medications SIG Qnty Indications Ordering Provider Date Zonisamide 4 tab by mouth at Unknown 100mg night Capsules Sumatriptan Succinate take one tablet by Unknown mouth at the start 50mg Tablets of the headache; may repeat the dose in 2 hours if needed Clonazepam take 1/2 to 1 Unknown 0.5mg tablet as needed Tablets anxiety and sleep Gabapentin 1 capsule two Unknown 100mg times daily. Capsules Sertraline HCL 1 by mouth every Unknown 50mg day Tablets Clobazam take 1/2 tab by Unknown 10mg Tablets mouth in the in the morning, 1 tab in the at night mdd 1.5 Ondansetron dissolve one Unknown 4mg Tablets tablet orally Dispers every 8 hours as needed for nausea. History Medications Oxycodone-Acetaminophen one tablet by 10tabs Z30.2 Dvora 04/17/2019 - 5-325mg Tablets mouth q6 MD Tracy 04/28/2019 hours as needed strong pain Ibuprofen one tablet by 10tabs Z30.2 Dvora 04/17/2019 - 600mg Tablets mouth q6 as MD Tracy 04/29/2019 needed pain Medications Administered in Office Medication SIG Qnty Indications Ordering Provider Date Celestone 3 mg and 3mg DANNY Lema 02/02/2014 Injection Immunizations Description No Information Available Vital Signs Date Vital Result Comment 08/05/2019 8:34am Heart Rate 68 /min Respiratory Rate 16 /min Body Temperature 97.9 F 07/22/2019 8:09am Height 66 inches 5'6" Weight 124.00 lb Heart Rate 81 /min BP Systolic 97 mmHg BP Diastolic 63 mmHg O2 % BldC Oximetry 96 % BMI (Body Mass Index) 20.0 kg/m2 Results Test Acquired Date Facility Test Result H/L Range Note Laboratory test 07/22/2019 [facility] TSH 1.16 Normal 0.34- 5.[address] (Thyroid mcIU/[place] [address] Stim [phone] Horm) Procedures Date Code Description Status 04/25/2019 63905 Laparoscopy, W/Fulguration Of Oviducts (W/W/O Completed Transection) 04/25/2019 05379 Laparoscopy, W/Fulguration Of Oviducts (W/W/O Completed Transection) 02/13/2019 [id number] Mammogram Completed Medical Devices Description No Information Available Encounters Type Date Location Provider Dx Diagnosis Office Visit 07/22/2019 [facility] Rand Monreal, N.P. 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 protein C resistance K31.84 Gastroparesis Office Visit 03/03/2019 8:30a Surgical Ree Vallejo N63.12 Unspecified lump [facility] in the right breast, upper inner quadrant N64.52 Nipple discharge Office Visit 02/20/2019 [facility] S60.211A Contusion of 2:15p [facility] right wrist, [place] initial encounter S60.211A Contusion of right wrist, initial encounter Office Visit 02/10/2019 9:30a [facility] Cayetano Molina Z01.419 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 encounter 02/20/2019 S60.211A Contusion of right wrist, initial Li Anaya M.D. encounter 02/10/2019 Z01.419 Encounter for gynecological examination Cayetano Molina MD (general) (routine) without abnormal findings 02/10/2019 N63.12 Unspecified lump in the right breast, Cayetano Molina MD upper inner quadrant 02/10/2019 Z11.51 Encounter for screening for human Cayetano Molina MD papillomavirus (HPV) Plan of Treatment 08/05/2019 - Ree Vallejo MDN63.12 Unspecified lump in the right breast, upper inner quadrantFollow up:Please follow up with me as needed.N64.4 Mastodynia Functional Status Description No Information Available Mental Status Description No Information Available Referrals Refer to Dr Reason for Referral Status Appt Date Foster, Yaritza Vallejo MD Scheduled 03/03/[address] [place] [address] [address] [place] [phone]
--- OUTSIDE RECORDS SUMMARY | 2019-08-05 16:23 | XMS REPORT | Continuity of Care Document ---
:1990 External Reference #:[id number] Author Name Rand Monreal N.P. (transmitted by agent of provider Rebekah Benz) Address [address], [place] [address] Care Team Providers Name Role Phone Meryl Cadena PA - Medical Care Team Information Operations Supervisor [phone] Problems Active Problems Provider Date Partial seizure [...] (10 or fewer cigarettes/day) Smoking Status Reviewed: 07/22/19 Light tobacco smoker (10 or fewer cigarettes/day) [...] Medications SIG Qnty Indications Ordering Provider Date Naproxen 1 by mouth twice 60tabs S80.02xA Luis F 06/24/2018 500mg Tablets a day as needed MD Magalie pain Zonisamide 4 tab by mouth at Unknown 100mg night Capsules Sumatriptan Succinate take one tablet Unknown by mouth at the 50mg Tablets start of the headache; may repeat the dose [...] tab in the at night mdd 1.5 History Medications Oxycodone-Acetaminophen one tablet by 10tabs Z30.2 Dvorah 04/17/2019 - 5-325mg Tablets mouth q6 MD Tracy 04/28/2019 hours as needed strong pain Ibuprofen one tablet by 10tabs Z30.2 Dvorah 04/17/2019 - 600mg Tablets mouth q6 as MD Tracy 04/29/2019 needed pain Medications Administered in Office Medication SIG Qnty Indications Ordering Provider Date Celestone 3 mg and 3mg DANNY Lema 02/02/2014 Injection Immunizations Description No Information Available Vital Signs Date Vital Result Comment 07/22/2019 8:09am Height 66 inches 5'6" Weight 124.00 lb Heart Rate 81 /min BP Systolic 97 mmHg BP Diastolic 63 mmHg O2 % BldC Oximetry 96 % BMI (Body Mass Index) 20.0 kg/m2 05/02/2019 10:18am Height 66 inches 5'6" Weight 121.00 lb Heart Rate 76 /min BP Systolic 114 mmHg BP Diastolic 72 mmHg O2 % BldC Oximetry 100 % BMI (Body Mass Index) 19.5 kg/m2 Results Test Acquired Date Facility Test Result H/L Range Note Laboratory test 07/22/2019 [facility] TSH <pending> finding [address] ([place] [address] Stim Horm) [phone] Procedures Date Code Description Status 04/25/2019 71720 Laparoscopy, W/Fulguration Of Oviducts (W/W/O Completed Transection) 04/25/2019 75804 Laparoscopy, W/Fulguration Of Oviducts (W/W/O Completed Transection) 02/13/2019 [id number] Mammogram Completed Medical Devices Description No Information Available Encounters Type Date Location Provider Dx Diagnosis Office Visit 04/17/2019 [facility] Cayetano Molina, Z30.2 Encounter for 10:30a [facility] sterilization 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, 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, w/o stat epi Q21.0 Ventricular septal defect D68.51 Activated protein C resistance K31.84 Gastroparesis Office Visit 03/03/2019 8:30a Surgical Ree Yoni, N63.12 Unspecified lump [facility] in the right breast, upper inner quadrant N64.52 Nipple discharge Office Visit 02/20/2019 [facility] S60.211A Contusion of 2:15p [facility] right wrist, [place] initial encounter S60.211A Contusion of right wrist, initial encounter Office Visit 02/10/2019 9:30a [facility] Cayetano Molina, Z01.419 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 05/02/2019 Z30.2 Encounter for [...] Molina MD papillomavirus (HPV) Plan of Treatment Future Appointment(s):08/05/2019 8:30 am - Ree Vallejo [facility]07/22/2019 - Rand Monreal, N.P.N92.6 Irregular menstruation, unspecifiedComments:Plan to check TSH and transvaginal US; we will follow up with you regarding these resultsI suspect that your irregular bleeding may be due to recently stopping after depo-provera as you may see irregular bleeding for up to one year. Functional Status Description No Information Available Mental Status Description No Information Available Referrals Refer to Dr Reason for Referral Status Appt Date Foster, Yaritza Vallejo MD Scheduled 03/03/[address] [place] [address] [address] [place] [phone]
== END 2019-08-04 14:15 | disposition home or self-care (01) ==
LOC: ED 11:19
DX: N83.202 Unspecified ovarian cyst, left side (principal); F17.210 Nicotine dependence, cigarettes, uncomplicated; Z98.51 Tubal ligation status; Z79.899 Other long term (current) drug therapy; Z88.1 Allergy status to other antibiotic agents; Z88.0 Allergy status to penicillin; Z88.8 Allergy status to other drugs, medicaments and biological substances
CPT/HCPCS: 36415; 76705; 76856; 80053; 85025; 86140; 99283

== ENCOUNTER 2019-12-01 20:23 | Emergency (ER) | payer OTHER ==
--- NOTE | 2019-12-01 20:32 | ED ---
Abdominal Pain/Female - HPI Summary HPI Summary: Patient complains of right side abdominal pain 2 days with associated nausea, decreased by mouth intake. Abdominal pain described as constant, varying from 8 /10-10/10, radiates to back, right side groin and partially down right side leg. Patient unaware if symptoms are worse with eating, but definitely worse with standing. History of ovarian cysts and gallstones. Denies trauma, fever, cough, sore throat, CP, SOB, V/D, change in urine, change in BM. Medical history is protein C deficiency, gastroparesis. Abdominal surgical history is tubal ligation. - History of Current Complaint Chief Complaint: EDAbdPain Stated Complaint: ABD PAIN PER PT Time Seen by Provider: 12/01/19 20:30 Hx Obtained From: Patient Hx Last Menstrual Period: unsure, is on Depo, thinks she is due soon for the Depo (09/24/17) Onset/Duration: Gradual Onset, Lasting Days Timing: Constant Severity Initially: Severe Severity Currently: Severe Pain Intensity: 8 Pain Scale Used: 0-10 Numeric Location: Discrete At: RUQ, Discrete At: RLQ Radiates to: Back Character: Sharp, Cramping Aggravating Factor(s): Movement Alleviating Factor(s): Nothing Associated Signs and Symptoms: Positive: Back Pain, Decreased Appetite, Nausea Allergies/Adverse Reactions: Allergies Allergy/AdvReac Type Severity Reaction Status Date / Time amoxicillin Allergy Mild Rash Verified 12/01/19 20:26 miconazole Allergy Mild Hives Verified 12/01/19 20:26 oseltamivir [From Tamiflu] Allergy Mild Hives Verified 12/01/19 20:26 cephalexin [From Keflex] Allergy Hives Verified 12/01/19 20:26 clindamycin Allergy See Comment Verified 12/01/19 20:26 diphenhydramine Allergy Anxiety Verified 12/01/19 20:26 [From Benadryl] fluconazole [From Diflucan] Allergy See Comment Verified 12/01/19 20:26 levetiracetam [From Keppra] Allergy Unknown Verified 12/01/19 20:26 Reaction Details metoclopramide [From Reglan] Allergy Tachycardia Verified 12/01/19 20:26 oxcarbazepine Allergy Altered Verified 12/01/19 20:26 [From Trileptal] Mental Status topiramate [From Topamax] Allergy Altered Verified 12/01/19 20:26 Mental Status Home Medications: Home Medications Zonisamide [Zonegran] 300 mg PO BEDTIME 09/03/18 [History Confirmed 12/01/19] Clobazam TAB (NF) [Onfi TAB(NF)] 15 mg PO DAILY 08/04/19 [History Confirmed ] Sertraline* [Zoloft*] 50 mg PO DAILY 08/04/19 [History Confirmed 12/01/19] Cyanocobalamin (Vitamin B-12) [Vitamin B-12] 1,000 mcg PO DAILY 12/01/19 [ History Confirmed 12/01/19] Gabapentin CAP(*) [Neurontin 100 mg CAP(*)] 100 mg PO BID 12/01/19 [History Confirmed 12/01/19] Ketorolac TAB * [Toradol TAB *] 10 mg PO Q6H 2 Days #5 tab 12/01/19 [Rx] Magnesium Oxide TAB* [MagOx 400 TAB*] 400 mg PO DAILY 12/01/19 [History Confirmed 12/01/19] Ondansetron ODT TAB* [Zofran 4 MG Odt TAB*] 4 mg PO Q8H PRN 4 Days #14 tab.odt 12/01/19 [Rx] PMH/Surg Hx/FS Hx/Imm Hx Endocrine/Hematology History: Reports: Other Endocrine/Hematological Disorders - Protein C deficiency Denies: Hx Anticoagulant Therapy, Hx Diabetes, Hx Thyroid Disease Comment Only: Hx Anemia - PROTEIN C.DEFICIENCY Cardiovascular History: Reports: Other Cardiovascular Problems/Disorders - murmur Denies: Hx Hypertension, Hx Pacemaker/ICD Respiratory History: Denies: Hx Asthma, Hx Chronic Obstructive Pulmonary Disease (COPD) GI History: Reports: Other GI Disorders - GASTROPARESIS Denies: Hx Ulcer History: Denies: Hx Dialysis, Hx Renal Disease Musculoskeletal History: Denies: Hx Scoliosis Sensory History: Reports: Hx Contacts or Glasses - GLASSES Denies: Hx Hearing Aid Opthamlomology History: Reports: Hx Contacts or Glasses - GLASSES Neurological History: Reports: Hx Headaches - SEIZURE HEADACHES, Hx Migraine - complex, Hx Seizures, Other Neuro Impairments/Disorders - 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) Psychiatric History: Reports: Hx Eating Disorder Denies: Hx Anxiety, Hx Panic Disorder - Cancer History Cancer Type, 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 - Surgical History Surgery Procedure, Year, and Place: tonsillectomy, tumor removed from temporal lobe of brain (01/04/16) Hx Anesthesia Reactions: No - Immunization History Date of Influenza Vaccine: unknown Infectious Disease History: Yes Infectious Disease History: Denies: Hx Clostridium Difficile, Hx Hepatitis, Hx Human Immunodeficiency Virus (HIV), Hx of Known/Suspected MRSA, Hx Shingles, Hx Tuberculosis, Traveled Outside the [place] in Last 30 Days - Family History Known Family History: Positive: None, Cardiac Disease, Hypertension, Diabetes, Other - Complex migrain (mother); Denies FHx of MRSA - Social History Alcohol Use: None Hx Substance Use: No Substance Use Type: Reports: None Hx Tobacco Use: Yes Smoking Status (MU): Light Every Day Tobacco Smoker Type: Cigarettes Amount Used/How Often: 1 pk/wk Have You Smoked in the Last Year: Yes Review of Systems Constitutional: Negative Eyes: Negative ENT: Negative Cardiovascular: Negative Respiratory: Negative Positive: Abdominal Pain, Nausea Genitourinary: Negative Musculoskeletal: Negative Skin: Negative Neurological/Mental Status: Negative Psychological: Normal All Other Systems Reviewed And Are Negative: Yes Physical Exam Triage Information Reviewed: Yes Vital Signs On Initial Exam: Initial Vitals Temp Pulse Resp BP Pulse Ox 98.1 F 100 16 121/89 100 12/01/19 20:24 12/01/19 20:24 12/01/19 20:24 12/01/19 20:24 12/01/19 20:24 Vital Signs Reviewed: Yes Appearance: Positive: Well-Appearing Skin: Positive: Warm Head/Face: Positive: Normal Head/Face Inspection Eyes: Positive: Normal Neck: Positive: Supple Respiratory/Lung Sounds: Positive: Clear to Auscultation Cardiovascular: Positive: Normal Abdomen Description: Positive: Other: - Positive Montez's, positive McBurney's Musculoskeletal: Positive: Normal Neurological: Positive: Normal Psychiatric: Positive: Normal AVPU Assessment: Alert - [place] Coma Scale Best Eye Response: 4 - Spontaneous Best Motor Response: 6 - Obeys Commands Best Verbal Response: 5 - Oriented Coma Scale Total: 15 Procedures - Sedation Patient Received Moderate/Deep Sedation with Procedure: No Diagnostics - Vital Signs Vital Signs Temp Pulse Resp BP Pulse Ox 12/01/19 20:24 98.1 F 100 16 121/89 100 - Laboratory Result Diagrams: 12/01/19 20:40 12/01/19 20:40 Lab Statement: Any lab studies that have been ordered have been reviewed, and results considered in the medical decision making process. Abdominal Pain Fem Course/Dx - Course Course Of Treatment: Patient complains of right side abdominal pain 2 days with associated nausea, decreased by mouth intake. Abdominal pain described as constant, varying from 8/10-10/10, radiates to back, right side groin and partially down right side leg. Patient unaware if symptoms are worse with eating, but definitely worse with standing. History of ovarian cysts and gallstones. Denies trauma, fever, cough, sore throat, CP, SOB, V/D, change in urine, change in BM. Medical history is protein C deficiency, gastroparesis. Abdominal surgical history is tubal ligation. Vital signs within normal limits. Labs unremarkable. Ultrasound of the gallbladder negative. Ultrasound is vaginal positive for ovarian cyst. Discussed risks and benefits of CAT scan at this time to rule out appendicitis, and patient prefers to defer CT for watchful waiting. - Diagnoses Provider Diagnoses: Ovarian cyst, right Discharge ED - Sign-Out/Discharge Documenting (check all that apply): Patient Departure - Discharge Plan Condition: Stable Disposition: HOME Prescriptions: Ketorolac TAB * [Toradol TAB *] 10 mg PO Q6H 2 Days #5 tab Ondansetron ODT TAB* [Zofran 4 MG Odt TAB*] 4 mg PO Q8H PRN 4 Days #14 tab.odt PRN Reason: Nausea Patient Education Materials: Ovarian Cyst (ED) Referrals: Meryl Cadena PA [Primary Care Provider] - Additional Instructions: Alternate ibuprofen 600 mg with Tylenol 650 mg every 3 hours if needed for pain. Take Toradol instead of ibuprofen if pain not controlled. Take Zofran as directed for nausea if needed. Follow up with WRAPPING MACHINE OPERATOR. Return to the ED for any new or worsening symptoms. - Billing Disposition and Condition Condition: STABLE Disposition: Home
--- OUTSIDE RECORDS SUMMARY | 2019-12-01 20:32 | XMS REPORT | Continuity of Care Document ---
:1990 External Reference #:[id number] Author Name Bailey Vázquez NP (transmitted by agent of provider Hannah Molina) Address [address] [facility] [address], [place] [address] Care Team Providers Name Role Phone Meryl Cadena PA - Medical Care Team Information Sorority Mother [phone] Problems Active Problems Provider Date Partial seizure evolving to secondary Dixie Moss M.D. Onset: 2014 generalized seizure Migraine with aura Dixie Moss M.D. Onset: 06/15/2015 Anxiety Dixie Moss M.D. Onset: 03/07/2016 Photosensitivity Dixie Moss M.D. Onset: 01/16/2017 History of benign neoplasm of brain Dalia Dorantes MD Onset: 09/18/2017 Social History Type Date Description Comments Sex Unknown Tobacco Use Start: Unknown Patient is a current 1 pack or less per cigarette smoker, day smokes every day Smoking Status Reviewed: 10/30/19 Patient is a current 1 pack or less per cigarette smoker, day smokes every day Smokeless Tobacco Never Used Smokeless Tobacco ETOH [...] Diflucan Hives 02/05/2019 Benadryl 02/05/2019 Clindamycin 02/05/2019 Microgestin (1.5/30) Hives 09/29/2019 Medications Active Medications SIG Qnty Indications Ordering Provider Date Vitamin D3 take 1 capsule by 8caps E55.9 Cayetano Molina MD 09/17/2019 1.25mg mouth once weekly (83858 Ut) Capsules for 8 weeks Magnesium-Oxide Take 1 tablet po 30tabs Cayetano Molina MD 09/17/2019 daily at bedtime 400(241.3Mg) mg Tablets Zonisamide 3 tab by mouth at Unknown 100mg night [...] every 8 hours as needed for nausea. Vitamin B12 1 by mouth every Unknown 1000mcg day Tablets ER Multi For Her 1 by mouth every Unknown Capsules day History Medications Q98-Xcfsbm 1 by mouth 30units D51.9 Cayetano Molina MD 09/16/2019 - 1mg every day Unknown Chewtabs Vitamin D3 Ultra once a week for 8tabs E55.9 Cayetano Molina MD 09/16/2019 - Potency 8 weeks 09/17/2019 1.25mg (46377 Ut) Tablets Magnesium Glycinate 300 mg daily 1500gm N92.5 Cayetano Molina MD 2019 - Unknown Powder Medications Administered in Office Medication SIG Qnty Indications Ordering Provider Date Celestone 3 mg and 3mg DANNY Lema 02/02/2014 Injection Immunizations Description No Information Available Vital Signs Date Vital Result Comment 10/30/2019 9:06am Height 66 inches 5'6" Weight 120.00 lb Heart Rate 99 /min BP Systolic 87 mmHg BP Diastolic 61 mmHg Body Temperature 97.1 F O2 % BldC Oximetry 99 % BMI (Body Mass Index) 19.4 kg/m2 09/29/2019 10:39am Height 66 inches 5'6" Weight 125.00 lb Heart Rate 95 /min BP Systolic 108 mmHg BP Diastolic 69 mmHg O2 % BldC Oximetry 98 % BMI (Body Mass Index) 20.2 kg/m2 Results Test Acquired Date Facility Test Result H/L Range Note Laboratory test 09/01/2019 [facility] Homocysteine 18 mcmol/L Abnormal 1 finding [address] [place] [address] [phone] Celiac Hla 09/01/2019 [facility] Hla-Dqa1 SEE BELOW 2 [address] [place] [address] [phone] Hla-[id number] SEE BELOW 3 Celiac Gene Pairs Present? No Celiac Gene Interpretation See Comment 4 Laboratory test 09/01/2019 [facility] T3 Reverse 17 ng/dL 10- 24 5 finding [address] [place] [address] [phone] Heavy Metal Blool 09/01/2019 [facility] Arsenic <1 ng/mL 0- 12 6 [address] [place] [address] [phone] Lead <1.0 g/dL 0.0-4.9 7 Mercury <1 ng/mL 0-9 8 Cadmium 1.0 ng/mL 0.0-4.[address] [place] [address] [place] [id number] [place] [address] Guardian First Name ELVIN Perkins Guardian Last Name CHOLO Venous/Capillary Heavy Metals Venous Patient Race WHITE Submitting Laboratory 11 Gliadin (Deamidated) 09/01/2019 [facility] Gliadin IgG <10.0 U 12 Igg/Iga AB [address] [place] [address] [phone] Gliadin IgA <10.0 U 13 Transglutaminase Igg 09/01/2019 [facility] Tissue <1.2 14 & Iga [address] [facility] Transglutaminase IgA U/[place] [address] Ab [phone] Tissue Transglutaminase IgG Ab <1.2 U/mL 15 Immunoglobulins 09/01/2019 [facility] Immunoglobulin G 595 Abnormal 767 - 16 Serum Quant 101 mg/dL [address] [place] [address] [phone] Immunoglobulin M 11 mg/dL Abnormal 37 - 286 Immunoglobulin A 73 mg/dL 61 - 356 Laboratory test 09/01/2019 [facility] CRP High < 0.20 <2.[address] Sensitivity mg/[place] [address] [phone] Thyroxine 6.25 g/dL Normal 6.09-12.23 TSH (Thyroid Stim Horm) 1.48 mcIU/mL Normal 0.34-5.60 Free T4 (Free Thyroxine) 0.65 ng/dL Normal 0.61-1.12 T3 Free 3.20 pg/mL Normal 2.5-3.9 T3 Total 89 ng/dL Normal 87-178 Ferritin 43.1 ng/mL Normal 11-307 Thyroperoxidase AB 0.27 IU/mL Normal <9 Folic Acid (Folate) 4.71 ng/mL >3.99 Vitamin B12 172 pg/mL Low 180-914 17 Insulin Level 7.0 mcIU/mL Normal 2.0-16.0 Vitamin D Total 25(Oh) 19.3 ng/mL Low 20-50 18 Thyroglobulin AB 0.0 IU/mL <4.0 Hemoglobin A1c (Glyco HGB) 4.9 % Normal 4.0-5.6 19 Copper, Serum 0.70 g/mL Abnormal 0.75-1.45 20 Zinc Serum 0.76 g/mL 0.66-1.10 21 Iron & Iron Binding 09/01/2019 [facility] Iron 109 g/dL Normal 50-[address] [place] [address] [phone] Unsaturated Iron Binding < 252 g/dL Total Iron Binding Capacity 267 g/dL Normal 250-450 Transferrin 191 mg/dL Low 203-362 % Iron Saturation 41 % Normal 15-55 Lipid Profile 09/01/2019 [facility] Triglycerides 67 mg/dL 22 (Trig/Chol/HDL) [address] [place] [address] [phone] Cholesterol 158 mg/dL 23 HDL Cholesterol 44.2 mg/dL 24 LDL Cholesterol 100 mg/dL 25 Comp Metabolic 09/01/2019 [facility] Sodium 139 mmol/L Normal 135-[address] [place] [address] [phone] Potassium 3.9 mmol/L Normal 3.5-5.0 Chloride 109 mmol/L Normal 101-111 Co2 Carbon Dioxide 24 mmol/L Normal 22-32 Anion Gap 6 mmol/L Normal 2-11 Glucose 81 mg/dL Normal 70-100 Blood Urea Nitrogen 18 mg/dL Normal 6-24 Creatinine 0.83 mg/dL Normal 0.51-0.95 BUN/Creatinine Ratio 21.7 High 8-20 Calcium 9.5 mg/dL Normal 8.6-10.3 Total Protein 6.2 g/dL Low 6.4-8.9 Albumin 4.6 g/dL Normal 3.2-5.2 Globulin 1.6 g/dL Low 2-4 Albumin/Globulin Ratio 2.9 Normal 1-3 Total Bilirubin 0.60 mg/dL Normal 0.2-1.0 Alkaline Phosphatase 58 U/L Normal 34-104 Alt 10 U/L Normal 7-52 Ast 9 U/L Low 13-39 Egfr Non- 82.5 >60 Egfr 99.8 >60 26 CBC Auto 09/01/2019 [facility] White Blood 4.1 10^3/uL Normal 3.5-10.[address] [place] [address] [phone] Red Blood Count 4.33 10^6/uL Normal 3.70-4.87 Hemoglobin 13.7 g/dL Normal 12.0-16.0 Hematocrit 41 % Normal 35-47 Mean Corpuscular Volume 94 fL Normal 80-97 Mean Corpuscular Hemoglobin 32 pg High 27-31 Mean Corpuscular HGB Conc 34 g/dL Normal 31-36 Red Cell Distribution Width 13 % Normal 10-15 Platelet Count 131 10^3/uL Low 150-450 Mean Platelet Volume 9.3 fL Normal 7.4-10.4 Abs Neutrophils 2.3 10^3/uL Normal 1.5-7.7 Abs Lymphocytes 1.2 10^3/uL Normal 1.0-4.8 Abs Monocytes 0.2 10^3/uL Normal 0-0.8 Abs Eosinophils 0.2 10^3/uL Normal 0-0.6 Abs Basophils 0.0 10^3/uL Normal 0-0.2 Abs Nucleated RBC 0.0 10^3/uL Granulocyte % 57.4 % Lymphocyte % 30.1 % Monocyte % 5.7 % Eosinophil % 6.1 % Basophil % 0.7 % Nucleated Red Blood Cells % 0.0 Laboratory test finding 08/19/2019 [facility] Zinc Serum < pending> [address] [place] [address] [phone] Vitamin D Total 25(Oh) <pending> Vitamin B12 And Folate 08/19/2019 [facility] Vitamin B12 < pending> [place] [address] [phone] Folic Acid (Folate) <pending> Thyroid Panel 08/19/2019 [facility] Free T4 (Free <pending> DRIVE Thyroxine) [place] [address] [phone] Thyroxine <pending> TSH (Thyroid Stim Horm) <pending> Laboratory test finding 08/19/2019 [facility] T3 Free <pending> [place] [address] [phone] T3 Reverse <pending> T3 Total <pending> Laboratory test 08/19/2019 [facility] Insulin Level <pending> [place] [address] [phone] Laboratory test 08/19/2019 [facility] Hemoglobin A1c <pending> finding DRIVE (Glyco HGB) [place] [address] [phone] Homocysteine <pending> Laboratory test 08/19/2019 [facility] Copper, Serum <pending> [place] [address] [phone] Ferritin <pending> Laboratory test 08/19/2019 [facility] CRP High Sensitivity < pending> [place] [address] [phone] Anti-Thyroid 08/19/2019 [facility] Thyroperoxidase AB <pending> [place] [address] [phone] Thyroglobulin AB <pending> Laboratory 07/22/2019 [facility] TSH (Thyroid 1.16 Normal 0.34 -5.[address] Stim Horm) mcIU/[place] [address] [phone] 1 The homocysteine concentration is elevated in this sample. Increased homocysteine has been associated with an increased risk of cardiovascular disease, cerebrovascular disease, peripheral arterial disease and thrombosis. Vitamin deficiencies (B6, B12 and folic acid) may also cause an increased homocysteine concentration. Hyperhomocysteinemia is also a contributing factor in the pathogenesis of neural tube defects. REFERENCE VALUE <=13 (Fasting) ADDITIONAL INFORMATION This test was developed and its performance characteristics determined by [facility] in a manner consistent with CLIA requirements. This test has not been cleared or approved by the U.S. Food and Drug Administration. Test Performed by: [facility] - [address] [address] [employer] Protection Guard: Jesse Lopez M.D. Ph.D.; CLIA# [id number] 2 RESULT: 02:01,04:01 REFERENCE VALUE Not Applicable 3 RESULT: 03:03,04:02 DQ Serologic Equivalent: 9,4 REFERENCE VALUE Not Applicable 4 The absence of HLA celiac permissive genes would make the presence of celiac disease unlikely. ADDITIONAL INFORMATION Method: Molecular typing of HLA antigens performed using reverse SSOP and/or SSP methods, reported as serological equivalents and low to medium resolution molecular values. Test Performed by: [facility] - [address] [address] [employer] Protection Guard: Jesse Lopez M.D. Ph.D.; CLIA# [id number] 5 ADDITIONAL INFORMATION This test was developed and its performance characteristics determined by [facility] in a manner consistent with CLIA requirements. This test has not been cleared or approved by the U.S. Food and Drug Administration. Test Performed by: [facility] [employer] [place] [address] Plant Protection Guard: Jesse Lopez M.D. Ph.D.; CLIA# [id number] 6 ADDITIONAL INFORMATION This test was developed and its performance characteristics determined by [facility] in a manner consistent with CLIA requirements. This test has not been cleared or approved by the U.S. Food and Drug Administration. 7 ADDITIONAL INFORMATION Testing performed by Inductively Coupled Plasma-Mass Spectrometry (ICP-MS). This test was developed and its performance characteristics determined by [facility] in a manner consistent with CLIA requirements. This test has not been cleared or approved by the U.S. Food and Drug Administration. 8 ADDITIONAL INFORMATION This test was developed and its performance characteristics determined by [facility] in a manner consistent with CLIA requirements. This test has not been cleared or approved by the U.S. Food and Drug Administration. 9 ADDITIONAL INFORMATION This test was developed and its performance characteristics determined by [facility] in a manner consistent with CLIA requirements. This test has not been cleared or approved by the U.S. Food and Drug Administration. [address] 11 Test Performed by: [facility] [employer] [place] [address] [employer] Guard: Jesse Lopez M.D. Ph.D.; CLIA# [id number] 12 REFERENCE VALUE <20.0 (Negative) Test Performed by: [place] [address] [employer] Guard: Jesse Lopez M.D. Ph.D.; CLIA# [id number] 13 REFERENCE VALUE <20.0 (Negative) 14 REFERENCE VALUE <4.0 (Negative) 15 REFERENCE VALUE <6.0 (Negative) Test Performed by: [place] [address] [employer] Guard: Jesse Lopez M.D. Ph.D.; CLIA# [id number] 16 Test Performed by: [place] [address] [employer] Guard: Jesse Lopez M.D. Ph.D.; CLIA# [id number] 17 Normal Range 180 to 914 Indeterminate Range 145 to 180 Deficient Range <145 18 Total 25-Hydroxyvitamin D2 and D3 (25-OH-VitD) <10 ng/mL (severe deficiency) 10-19 ng/mL (mild to moderate deficiency) 20-50 ng/mL (optimum levels) 51-80 ng/mL (increased risk of hypercalciuria) >80 ng/mL (toxicity possible) 19 Therapeutic target for the treatment of diabetes mellitus patients is <7% HBA1C, and in selective patients <6.0%. Please refer to [place] [employer] diabetic care guidelines for further information. 20 ADDITIONAL INFORMATION This test was developed and its performance characteristics determined by [facility] in a manner consistent with CLIA requirements. This test has not been cleared or approved by the U.S. Food and Drug Administration. Test Performed by: [place] [address] [employer] Protection Guard: Jesse Lopez M.D. Ph.D.; CLIA# [id number] 21 ADDITIONAL INFORMATION This test was developed and its performance characteristics determined by [facility] in a manner consistent with CLIA requirements. This test has not been cleared or approved by the U.S. Food and Drug Administration. Test Performed by: [place] [address] [employer] Protection Guard: Jesse Lopez M.D. Ph.D.; CLIA# [id number] 22 Desirable: <150 Borderline High: 150-199 High: 200-499 Very High: >500 23 Desirable: <200 Borderline High: 200-239 High: >239 24 Low: <40 Desirable: 40-60 High: >60 25 Desirable: <100 Near Optimal: 100-129 Borderline High: 130-159 High: 160-189 Very High: >189 26 Because ethnic data is not always readily [...] (or dialysis) Procedures Date Code Description Status 02/13/2019 [id number] Mammogram Completed Medical Devices Description No Information Available Encounters Type Date Location Provider Dx Diagnosis Office Visit 09/29/2019 [facility] Patti Freeman, N92.5 Other specified 11:30a [facility] MATHEMATICS DEPARTMENT CHAIR-Cde irregular menstruation R93.89 Abnormal findings on dx imaging of oth body structures Office Visit 09/16/2019 9:00a [facility] Bailey Vázquez, R53.83 Other fatigue [facility] CARPET FLOOR LAYER APPRENTICE N92.5 Other specified irregular menstruation D68.51 Activated protein C resistance E55.9 Vitamin D deficiency, unspecified E53.8 Deficiency of other specified B group vitamins Z71.6 Tobacco abuse counseling Office Visit 08/19/2019 8:00a [facility] Bailey Vázquez, R53.83 Other fatigue [facility] CARPET FLOOR LAYER APPRENTICE K58.2 Mixed irritable bowel syndrome G89.4 Chronic pain syndrome F41.8 Other specified anxiety disorders Office Visit 08/13/2019 8:00a [facility] Rand Monreal, R10.31 Right lower [facility] N.P. quadrant pain N83.202 Unspecified ovarian cyst, left side Office Visit 08/05/2019 8:30a Surgical Ree Vallejo, N63.12 Unspecified lump [facility] in the right breast, upper inner quadrant N64.4 Mastodynia Office Visit 07/22/2019 8:00a [facility] Rand Monreal, N92.5 Other specified [facility] N.P. irregular menstruation Assessments Date Code Description Provider 10/30/2019 R53.83 Other fatigue Bailey Vázquez, CARPET FLOOR LAYER APPRENTICE 10/30/2019 E55.9 Vitamin D deficiency, unspecified Bailey Gurpreet, CARPET FLOOR LAYER APPRENTICE 10/30/2019 N92.5 Other specified irregular menstruation Bailey Vázquez, CARPET FLOOR LAYER APPRENTICE 10/30/2019 D51.9 Vitamin B12 deficiency anemia, unspecified Bailey Vázquez , CARPET FLOOR LAYER APPRENTICE 10/28/2019 R53.83 Other fatigue Bailey Vázquez, CARPET FLOOR LAYER APPRENTICE 10/28/2019 E55.9 Vitamin D deficiency, unspecified Bailey Gurpreet, CARPET FLOOR LAYER APPRENTICE 10/28/2019 N92.5 Other specified irregular menstruation Bailey Vázquez, CARPET FLOOR LAYER APPRENTICE 10/28/2019 D51.9 Vitamin B12 deficiency anemia, unspecified Bailey Kearneych , CARPET FLOOR LAYER APPRENTICE 09/29/2019 N92.5 Other specified irregular menstruation Patti Freeman, MATHEMATICS DEPARTMENT CHAIR- Cde 09/29/2019 R93.89 Abnormal findings on diagnostic imaging of Patti Freeman, MATHEMATICS DEPARTMENT CHAIR-Cde other specified body structures 09/16/2019 R53.83 Other fatigue Bailey Vázquez, CARPET FLOOR LAYER APPRENTICE 09/16/2019 N92.5 Other specified irregular menstruation Bailey Vázquez, CARPET FLOOR LAYER APPRENTICE 09/16/2019 D68.51 Activated protein C resistance Bailey Vázquez, CARPET FLOOR LAYER APPRENTICE 09/16/2019 E55.9 Vitamin D deficiency, unspecified Bailey Vázquez, CARPET FLOOR LAYER APPRENTICE 09/16/2019 E53.8 Deficiency of other specified B group Bailey Vázquez, CARPET FLOOR LAYER APPRENTICE vitamins 09/16/2019 Z71.6 Tobacco abuse counseling Bailey Vázquez, CARPET FLOOR LAYER APPRENTICE 08/19/2019 R53.83 Other fatigue Bailey Vázquez, CARPET FLOOR LAYER APPRENTICE 08/19/2019 K58.2 Mixed irritable bowel syndrome Bailey Vázquez, CARPET FLOOR LAYER APPRENTICE 08/19/2019 G89.4 Chronic pain syndrome Bailey Vázquez, CARPET FLOOR LAYER APPRENTICE 08/19/2019 F41.8 Other specified anxiety disorders Bailey Vázquez, CARPET FLOOR LAYER APPRENTICE 08/13/2019 R10.31 Right lower quadrant pain Rand Monreal, N.P. 08/13/2019 N83.202 Unspecified ovarian cyst, left side Rand Monreal, N.P. 08/05/2019 N63.12 Unspecified lump in the right breast, upper Ree Vallejo MD inner quadrant 08/05/2019 N64.4 Mastodynia Ree Vallejo MD 07/22/2019 N92.5 Other specified irregular menstruation Rand Monreal, N.P. 05/02/2019 Z30.2 Encounter for sterilization Cayetano Molina MD 05/02/2019 Z98.890 Other specified postprocedural states Cayetano Molina MD Plan of Treatment Future Appointment(s):11/27/2019 11:00 am - Bailey Vázquez CARPET FLOOR LAYER APPRENTICE at [facility]10/30/2019 - Bailey Vázquez, NPR53.83 Other fatigueFollow up:Follow up in 4 weeks Please sign up portal. Plan for Labs - after you finish your vitamin D - recheck the next week. (at least 1 week prior to follow ) Elimination Diet - maybe just remove Dairy! Strictly for 30 days Follow up with your primary for cardiology referral and to keep her in the loop.Review and read information on SBI - would discuss this with Hematology. 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 Research and discuss with grain inspector using SBI - this is oral IgG - and this is what I recommend. You state the grain inspector will recheck in 3 months.E55.9 Vitamin D deficiency, unspecifiedRecommendations: Plan to ddfrurM48.5 Other specified irregular bmpqagyyhoyvP31.9 Vitamin B12 deficiency anemia, unspecifiedRecommendations:It is important to take a Methylated form of B 12 Your homocysteine is high which could indicate youhave an MTHFR polymorphism which is treated with methylated B vitamins. I also recommend supporting and promoting detox - such as drinking 8-10 glasses of water daily, exercise & sweating, dry brush (you can watch a you tube video) , epsom salt baths, massage. Functional Status Description No Information Available Mental Status Description No Information Available Referrals Refer to Reason for Referral Status Appt Date Levon Yeager M.D. Created [address] [place] [id number] [phone]
--- OUTSIDE RECORDS SUMMARY | 2019-12-01 20:32 | XMS REPORT | Continuity of Care Document ---
:1990 External Reference #:[id number] Author Name Giovanni Parrish M.D. (transmitted by agent of provider Swapna Tubbs ) Address [address] [facility] [address] [place] [address] Care Team Providers Name Role Phone Meryl Cadena PA - Medical Care Team Information Water Quality Tester [phone] Problems Active Problems Provider Date Partial seizure [...] day smokes every day Smoking Status Reviewed: 12/01/19 Patient is a current 1 pack or less per cigarette smoker, day smokes every day Smokeless Tobacco Never Used Smokeless Tobacco ETOH Use Denies alcohol use Tobacco Use Start: Unknown Light tobacco smoker [...] Medications SIG Qnty Indications Ordering Provider Date Magnesium-Oxide Take 1 tablet po 30tabs Cayetano [...] every Unknown 50mg day Tablets Clobazam take 1.5 tab Unknown 10mg Tablets daily at night mdd 1.5 Ondansetron dissolve one Unknown 4mg Tablets tablet orally Dispers every 8 hours as needed for nausea. Vitamin B12 1 by mouth every Unknown 1000mcg day Tablets ER Multi For Her 1 by mouth every Unknown Capsules day History Medications Vitamin D3 take 1 capsule by 8caps E55.9 Cayetano Molina 09/17/2019 - 1.25mg mouth once weekly 11/30/2019 (59924 Ut) Capsules for 8 weeks E22-Njmlpf 1 by mouth every 30units D51.9 Cayetano Molina 09/16/2019 - 1mg day Unknown Chewtabs Vitamin D3 Ultra once a week for 8 8tabs E55.9 Cayetano Molina 09/16/2019 - Potency weeks 09/17/2019 1.25mg (99205 Ut) Tablets Magnesium Glycinate 300 mg daily 1500gm N92.5 Cayetano Molina 09/16/2019 - Unknown Powder Medications Administered in Office Medication SIG Qnty Indications Ordering Provider Date Celestone 3 mg and 3mg DANNY Lema 02/02/2014 Injection Immunizations Description No Information Available Vital Signs Date Vital Result Comment 12/01/2019 9:56am Height 66 inches 5'6" Weight 114.31 lb with shoes/sweatshirt Heart Rate 72 /min Left radial BP Systolic Sitting 90 mmHg Ule regular cuff BP Diastolic Sitting 64 mmHg Ule regular cuff BP Systolic Standing 90 mmHg Ule regular cuff BP Diastolic Standing 72 mmHg Ule regular cuff BMI (Body Mass Index) 18.4 kg/m2 Ejection Fraction 50%-55% Echo 07/17/14 11/05/2019 8:49am Height 66 inches 5'6" Weight 119.00 lb Heart Rate 64 /min BP Systolic 87 mmHg BP Diastolic 55 mmHg Respiratory Rate 16 /min O2 % BldC Oximetry 100 % Ra BMI (Body Mass Index) 19.2 kg/m2 Results Test Acquired Date Facility Test Result H/L Range Note Laboratory test 09/01/2019 [facility] Homocysteine 18 mcmol/L Abnormal 1 finding [address] [place] [address] [phone] Celiac Hla 09/01/2019 [facility] Hla-Dqa1 SEE BELOW 2 [address] [place] [address] [phone] Hla-DQB1 SEE BELOW 3 Celiac Gene Pairs Present? No Celiac Gene Interpretation See Comment 4 Laboratory test 09/01/2019 [facility] T3 Reverse 17 ng/dL 10- 24 5 finding [address] [place] [address] [phone] Heavy Metal Blool 09/01/2019 [facility] Arsenic <1 ng/mL 0- 12 6 [address] [place] [address] [phone] Lead <1.0 g/dL 0.0-4.9 7 Mercury <1 ng/mL 0-9 8 Cadmium 1.0 ng/mL 0.0-4.[address] [place] [address] [address] [phone] [facility] Guardian First Name ELVIN Perkins Guardian Last Name CHOLO Venous/Capillary Heavy Metals Venous Patient Race WHITE Submitting Laboratory 11 Gliadin (Deamidated) 09/01/2019 [facility] Gliadin IgG <10.0 U 12 Igg/Iga AB [address] [place] [address] [phone] Gliadin IgA <10.0 U 13 CBC Auto 09/01/2019 [facility] White Blood 4.1 10^3/uL Normal 3.5-10.[address] [place] [address] [phone] Red Blood Count 4.33 10^6/uL Normal 3.70-4.87 [...] % Nucleated Red Blood Cells % 0.0 Comp Metabolic 09/01/2019 [facility] Sodium 139 mmol/L Normal 135-[address] [place], [place] [id number] [phone] Potassium 3.9 mmol/L Normal 3.5-5.0 Chloride 109 [...] Egfr Non- 82.5 >60 Egfr 99.8 >60 14 Lipid Profile 09/01/2019 [facility] Triglycerides 67 mg/dL 15 (Trig/Chol/HDL) [address] [place], [place] [id number] [phone] Cholesterol 158 mg/dL 16 HDL Cholesterol 44.2 mg/dL 17 LDL Cholesterol 100 mg/dL 18 Transglutaminase Igg 09/01/2019 [facility] Tissue <1.2 19 & Iga [address] Transglutaminase IgA U/[place] [address] Ab [phone] Tissue Transglutaminase IgG Ab <1.2 U/mL 20 Immunoglobulins 09/01/2019 [facility] Immunoglobulin G 595 Abnormal 767 - 21 Serum Quant [address] mg/dL [address] [place] [address] [phone] Immunoglobulin M 11 mg/dL Abnormal 37 - 286 Immunoglobulin A 73 mg/dL 61 - 356 Iron & Iron Binding 09/01/2019 [facility] Iron 109 g/dL Normal 50-[address] [place] [address] [phone] Unsaturated Iron Binding < 252 g/dL Total Iron Binding Capacity 267 g/dL Normal 250-450 Transferrin 191 mg/dL Low 203-362 % Iron Saturation 41 % Normal 15-55 Laboratory test 09/01/2019 [facility] CRP High < 0.20 <2.[address] Sensitivity mg/[place] [address] [phone] Thyroxine 6.25 g/dL Normal 6.09-12.23 TSH (Thyroid Stim Horm) 1.48 mcIU/mL Normal 0.34-5.60 Free T4 (Free Thyroxine) 0.65 ng/dL Normal 0.61-1.12 T3 Free 3.20 pg/mL Normal 2.5-3.9 T3 Total 89 ng/dL Normal 87-178 Ferritin 43.1 ng/mL Normal 11-307 Thyroperoxidase AB 0.27 IU/mL Normal <9 Folic Acid (Folate) 4.71 ng/mL >3.99 Vitamin B12 172 pg/mL Low 180-914 22 Insulin Level 7.0 mcIU/mL Normal 2.0-16.0 Vitamin D Total 25(Oh) 19.3 ng/mL Low 20-50 23 Thyroglobulin AB 0.0 IU/mL <4.0 Hemoglobin A1c (Glyco HGB) 4.9 % Normal 4.0-5.6 24 Copper, Serum 0.70 g/mL Abnormal 0.75-1.45 25 Zinc Serum 0.76 g/mL 0.66-1.10 26 Laboratory test finding 08/19/2019 [facility] Zinc Serum < pending> [place] [address] [phone] Vitamin D Total 25(Oh) <pending> Vitamin B12 And Folate 08/19/2019 [facility] Vitamin B12 < pending> [place] [address] [phone] Folic Acid (Folate) <pending> Thyroid Panel 08/19/2019 [facility] Free T4 (Free <pending> DRIVE Thyroxine) [place] [address] [phone] Thyroxine <pending> TSH (Thyroid Stim Horm) <pending> Laboratory test finding 08/19/2019 [facility] T3 Free <pending> [place] [address] [phone] T3 Reverse <pending> T3 Total <pending> Laboratory test 08/19/2019 [facility] Insulin Level <pending> [place] [address] [phone] Laboratory test 08/19/2019 [facility] Hemoglobin A1c <pending> finding (Glyco HGB) [place] [address] [phone] Homocysteine <pending> Laboratory test 08/19/2019 [facility] Copper, Serum <pending> [place] [address] [phone] Ferritin <pending> Laboratory test 08/19/2019 [facility] CRP High Sensitivity < pending> [place] [address] [phone] Anti-Thyroid 08/19/2019 [facility] Thyroperoxidase AB <pending> [place] [address] [phone] Thyroglobulin AB <pending> Laboratory 07/22/2019 [facility] TSH (Thyroid 1.16 Normal 0.34 -5.60 test finding [address] Stim Horm) mcIU/mL [place] [address] [phone] 1 The homocysteine concentration is elevated in [...] developed and its performance characteristics determined by [facility] in a manner consistent with CLIA requirements. This test has not been cleared or approved by the U.S. Food and Drug Administration. Test Performed by: [facility] [place] [address] Assistant Scientist: Jesse Lopez M.D. Ph.D.; CLIA# [id number] 2 RESULT: 02:01,04:01 REFERENCE VALUE Not Applicable 3 RESULT: 03:03,04:02 DQ Serologic Equivalent: 9,4 REFERENCE VALUE Not Applicable 4 The absence of HLA celiac permissive genes would make the presence of celiac disease unlikely. ADDITIONAL INFORMATION Method: Molecular typing of HLA antigens performed using reverse SSOP and/or SSP methods, reported as serological equivalents and low to medium resolution molecular values. Test Performed by: [facility] [employer] - [facility] [address] [place] [address] Assistant Scientist: Jesse Lopez M.D. Ph.D.; CLIA# [id number] 5 ADDITIONAL INFORMATION This test was developed and its performance characteristics determined by [facility] in a manner consistent with CLIA requirements. This test has not been cleared or approved by the U.S. Food and Drug Administration. Test Performed by: [facility] [employer] - [facility] [address] [place] [address] Assistant Scientist: Jesse Lopez M.D. Ph.D.; CLIA# [id number] 6 ADDITIONAL INFORMATION This test was developed and its performance characteristics determined by [facility] in a manner consistent with CLIA requirements. This test has not been cleared or approved by the U.S. Food and Drug Administration. 7 ADDITIONAL INFORMATION Testing performed by Inductively Coupled Plasma-Mass Spectrometry (ICP-MS). This test was developed and its performance characteristics determined by [facility] in a manner consistent with CLIA requirements. This test has not been cleared or approved by the U.S. Food and Drug Administration. 8 ADDITIONAL INFORMATION This test was developed and its performance characteristics determined by [facility] in a manner consistent with CLIA requirements. This test has not been cleared or approved by the U.S. Food and Drug Administration. 9 ADDITIONAL INFORMATION This test was developed and its performance characteristics determined by [facility] in a manner consistent with CLIA requirements. This test has not been cleared or approved by the U.S. Food and Drug Administration. [address] 11 Test Performed by: [place] [address] Assistant Scientist: Jesse Lopez M.D. Ph.D.; CLIA# [id number] 12 REFERENCE VALUE <20.0 (Negative) Test Performed by: [facility] [place] [address] Assistant Scientist: Jesse Lopez M.D. Ph.D.; CLIA# [id number] 13 REFERENCE VALUE <20.0 (Negative) 14 Because ethnic data is not always readily [...] 15-29 5 Kidney failure <15 (or dialysis) 15 Desirable: <150 Borderline High: 150-199 High: 200-499 Very High: >500 16 Desirable: <200 Borderline High: 200-239 High: >239 17 Low: <40 Desirable: 40-60 High: >60 18 Desirable: <100 Near Optimal: 100-129 Borderline High: 130-159 High: 160-189 Very High: >189 19 REFERENCE VALUE <4.0 (Negative) 20 REFERENCE VALUE <6.0 (Negative) Test Performed by: [facility] [place] [address] Assistant Scientist: Jesse Lopez M.D. Ph.D.; CLIA# [id number] 21 Test Performed by: [place] [address] Assistant Scientist: Jesse Lopez M.D. Ph.D.; CLIA# [id number] 22 Normal Range 180 to 914 Indeterminate Range 145 to 180 Deficient Range <145 23 Total 25-Hydroxyvitamin D2 and D3 (25-OH-VitD) <10 ng/mL (severe deficiency) 10-19 ng/mL (mild to moderate deficiency) 20-50 ng/mL (optimum levels) 51-80 ng/mL (increased risk of hypercalciuria) >80 ng/mL (toxicity possible) 24 Therapeutic target for the treatment of diabetes mellitus patients is <7% HBA1C, and in selective patients <6.0%. Please refer to [place] [employer] diabetic care guidelines for further information. 25 ADDITIONAL INFORMATION This test was developed and its performance characteristics determined by [facility] in a manner consistent with CLIA requirements. This test has not been cleared or approved by the U.S. Food and Drug Administration. Test Performed by: [facility] [place] [address] Assistant Scientist: Jesse Lopez M.D. Ph.D.; CLIA# [id number] 26 ADDITIONAL INFORMATION This test was developed and its performance characteristics determined by [facility] in a manner consistent with CLIA requirements. This test has not been cleared or approved by the U.S. Food and Drug Administration. Test Performed by: [facility] [address] [place] [address] Assistant Scientist: Jesse Lopez M.D. Ph.D.; CLIA# [id number] Procedures Date Code Description Status 12/01/2019 75702 EKG Tracing & Interpretation Completed 02/13/2019 [id number] Mammogram Completed Medical Devices Description No Information Available Encounters Type Date Location Provider Dx Diagnosis Office Visit 12/01/2019 [facility] Giovanni Sheridan D68.51 Activated protein 10:40a Leonor Parrish resistance N92.5 Other specified irregular menstruation R00.2 Palpitations R07.9 Chest pain, unspecified Q21.0 Ventricular septal defect Z72.0 Tobacco use Office Visit 11/05/2019 9:00a [facility] Patti Freeman, N92.5 Other specified [facility] irregular menstruation D68.51 Activated protein C resistance Office Visit 10/30/2019 9:15a [facility] Bailey Vázquez, R53.83 Other fatigue [facility] SHOP REPAIRER E55.9 Vitamin D deficiency, unspecified N92.5 Other specified irregular menstruation D51.9 Vitamin B12 deficiency anemia, unspecified Office Visit 09/29/2019 11:30a [facility] Patti Freeman, N92.5 Other specified [facility] irregular menstruation R93.89 Abnormal findings on dx imaging of oth body structures Office Visit 09/16/2019 9:00a [facility] Bailey Vázquez, R53.83 Other fatigue [facility] SHOP REPAIRER N92.5 Other specified irregular menstruation D68.51 Activated protein C resistance E55.9 Vitamin D deficiency, unspecified E53.8 Deficiency of other specified B group vitamins Z71.6 Tobacco abuse counseling Office Visit 08/19/2019 8:00a [facility] Bailey Vázquez, R53.83 Other fatigue [facility] SHOP REPAIRER K58.2 Mixed irritable bowel syndrome G89.4 Chronic pain syndrome F41.8 Other specified anxiety disorders Office Visit 08/13/2019 8:00a [facility] Rand Monreal, R10.31 Right lower [facility] N.P. quadrant pain N83.202 Unspecified ovarian cyst, left side Office Visit 08/05/2019 8:30a Surgical Reekika aVllejo, N63.12 Unspecified lump [facility] in the right breast, upper inner quadrant N64.4 Mastodynia Office Visit 07/22/2019 8:00a [facility] Rand Monreal, N92.5 Other specified [facility] [facility] N.P. irregular menstruation Assessments Date Code Description Provider 12/01/2019 D68.51 Activated protein C resistance Giovanni Parrish M.D. 12/01/2019 N92.5 Other specified irregular menstruation Giovanni Parrish M.D. 12/01/2019 R00.2 Palpitations Giovanni Parrish M.D. 12/01/2019 R07.9 Chest pain, unspecified Giovanni Parrish M.D. 12/01/2019 Q21.0 Ventricular septal defect Giovanni Parrish M.D. 12/01/2019 Z72.0 Tobacco use Giovanni Parrish M.D. 11/05/2019 N92.5 Other specified irregular menstruation JOSE ROBERTO Patel- Sandra 11/05/2019 D68.51 Activated protein C resistance JOSE ROBERTO Patel-Cddarryl 10/30/2019 R53.83 Other fatigue Bailey Gurpreet, SHOP REPAIRER 10/30/2019 E55.9 Vitamin D deficiency, unspecified Baiely Vázquez, SHOP REPAIRER 10/30/2019 N92.5 Other specified irregular menstruation Bailey Vázquez, SHOP REPAIRER 10/30/2019 D51.9 Vitamin B12 deficiency anemia, Bailey Vázquez, SHOP REPAIRER unspecified 10/28/2019 R53.83 Other fatigue Bailey Vázquez, SHOP REPAIRER 10/28/2019 E55.9 Vitamin D deficiency, unspecified Bailey Vázquez, SHOP REPAIRER 10/28/2019 N92.5 Other specified irregular menstruation Bailey Vázquez, SHOP REPAIRER 10/28/2019 D51.9 Vitamin B12 deficiency anemia, Bailey Vázquez, SHOP REPAIRER unspecified 09/29/2019 N92.5 Other specified irregular menstruation JOSE ROBERTO Patel- Cde 09/29/2019 R93.89 Abnormal findings on diagnostic imaging Patti Freeman, COIL TESTER -Cde of other specified body structures 09/16/2019 R53.83 Other fatigue Baileymindi Vázquez, SHOP REPAIRER 09/16/2019 N92.5 Other specified irregular menstruation Bailey Vázquez, SHOP REPAIRER 09/16/2019 D68.51 Activated protein C resistance Baileymindi Vázquez, SHOP REPAIRER 09/16/2019 E55.9 Vitamin D deficiency, unspecified Bailey Vázquez, SHOP REPAIRER 09/16/2019 E53.8 Deficiency of other specified B group Bailey Vázquez, SHOP REPAIRER vitamins 09/16/2019 Z71.6 Tobacco abuse counseling Baileymindi Vázquez, SHOP REPAIRER 08/19/2019 R53.83 Other fatigue Bailey Vázquez, SHOP REPAIRER 08/19/2019 K58.2 Mixed irritable bowel syndrome Bailey Kearneych, SHOP REPAIRER 08/19/2019 G89.4 Chronic pain syndrome Bailey Vázquez, SHOP REPAIRER 08/19/2019 F41.8 Other specified anxiety disorders Bailey Vázquez, HERNAN 08/13/2019 R10.31 Right lower quadrant pain Rand Monreal N.P. 08/13/2019 N83.202 Unspecified ovarian cyst, left side Rand Monreal N.P. 08/05/2019 N63.12 Unspecified lump in the right breast, Ree Vallejo MD upper inner quadrant 08/05/2019 N64.4 Mastodynia Ree Vallejo MD 07/22/2019 N92.5 Other specified irregular menstruation Rand Monreal, N.P. Plan of Treatment Future Appointment(s):12/19/2019 1:30 pm - Cayetano Molina MD at [facility]12/01/2019 - Giovanni Parrish M.D.D68.51 Activated protein C vstnqknfptM74.5 Other specified irregular neshktgxpmepP20.2 PalpitationsNew Orders:Holter Monitor, Ordered: 12/01/19Recommendations:consider [employer] patrice for smart phone to capture rhythm avoid lrhrmlugN96.9 Chest pain, unspecifiedRecommendations:try Mylanta or Maalox for unelhogwL66.0 Ventricular septal defectNew Orders:Echocardiogram, Ordered: 12/01/19Follow up:ov 6 mZ72.0 Tobacco useRecommendations:discontinue tobacco use Functional Status Description No Information Available Mental Status Description No Information Available Referrals Refer to Reason for Referral Status Appt Date Levon Yeager M.D. Created [address] [place] [address] [phone]
--- OUTSIDE RECORDS SUMMARY | 2019-12-01 20:32 | XMS REPORT | Continuity of Care Document ---
:1990 External Reference #:[id number] Author Name JOSE ROBERTO Patel-Cde (transmitted by agent of provider December) Address [address] , [place] [address] Care Team Providers Name Role Phone Meryl Cadena PA - Medical Care Team Information Rotary Shear Operator [phone] Problems Active Problems Provider Date Partial seizure [...] day smokes every day Smoking Status Reviewed: 11/05/19 Patient is a current 1 pack or [...] Molina MD 09/17/2019 1.25mg mouth once weekly (85476 Ut) Capsules for 8 weeks Magnesium-Oxide Take [...] mouth every Unknown Capsules day History Medications [id number] 1 by mouth 30units D51.9 Cayetano Molina MD 09/16/2019 - 1mg every day Unknown Chewtabs Vitamin D3 Ultra once a week for 8tabs E55.9 Cayetano Molina MD 09/16/2019 - Potency 8 weeks 09/17/2019 1.25mg (67578 Ut) Tablets Magnesium Glycinate 300 mg daily 1500gm N92.5 Cayetano Molina MD 2019 - Unknown Powder Medications Administered in Office Medication SIG Qnty Indications Ordering Provider Date Celestone 3 mg and 3mg DANNY Lema 02/02/2014 Injection Immunizations Description No Information Available Vital Signs Date Vital Result Comment 11/05/2019 8:49am Height 66 inches 5'6" Weight 119.00 lb Heart Rate 64 /min BP Systolic 87 mmHg BP Diastolic 55 mmHg Respiratory Rate 16 /min O2 % BldC Oximetry 100 % Ra BMI (Body Mass Index) 19.2 kg/m2 10/30/2019 9:06am Height 66 inches 5'6" Weight 120.00 lb Heart Rate 99 /min BP Systolic 87 mmHg BP Diastolic 61 mmHg Body Temperature 97.1 F O2 % BldC Oximetry 99 % BMI (Body Mass Index) 19.4 kg/m2 Results Test Acquired Date Facility Test Result H/L Range Note Laboratory test 09/01/2019 [facility] Homocysteine 18 mcmol/L Abnormal 1 finding [address] [place] [address] [phone] Celiac Hla 09/01/2019 [facility] Hla-Dqa1 SEE BELOW 2 [address] [place] [address] [phone] Hla-[id number] SEE BELOW 3 Celiac Gene Pairs Present? No Celiac Gene Interpretation See Comment 4 Laboratory test 09/01/2019 [facility] T3 Reverse 17 ng/dL 10- 24 5 finding [address] [place] [address] [phone] Heavy Metal Blool 09/01/2019 [facility] Arsenic <1 ng/mL 0- 12 6 [address] [place] [address] [phone] Lead <1.0 g/dL 0.0-4.9 7 Mercury <1 ng/mL 0-9 8 Cadmium 1.0 ng/mL 0.0-4.[address] [place] [id number] [place] [address] Guardian First Name ELVIN Perkins Guardian Last Name CHOLO Venous/Capillary Heavy Metals Venous Patient Race WHITE Submitting Laboratory 11 Gliadin (Deamidated) 09/01/2019 [facility] Gliadin IgG <10.0 U 12 Igg/Iga AB [address] [place] [address] [phone] Gliadin IgA <10.0 U 13 CBC Auto 09/01/2019 [facility] White Blood 4.1 10^3/uL Normal 3.5-10.[address] [place] [address] [phone] Red Blood Count 4.33 10^6/uL Normal 3.70-4.87 [...] Blood Cells % 0.0 Comp Metabolic 09/01/2019 [facility] Sodium 139 mmol/L Normal 135-[address] [place] [address] [phone] Potassium 3.9 mmol/L Normal 3.5-5.0 Chloride 109 [...] Egfr 99.8 >60 14 Lipid Profile 09/01/2019 [facility] Triglycerides 67 mg/dL 15 (Trig/Chol/HDL) [address] [place] [address] [phone] Cholesterol 158 mg/dL 16 HDL Cholesterol 44.2 mg/dL 17 LDL Cholesterol 100 mg/dL 18 Transglutaminase Igg 09/01/2019 [facility] Tissue <1.2 19 & Iga [address] Transglutaminase IgA U/[place] [address] Ab [phone] Tissue Transglutaminase IgG Ab <1.2 U/mL 20 Immunoglobulins 09/01/2019 [facility] Immunoglobulin G 595 Abnormal 767 - [address] mg/dL [address] [place] [address] [phone] Immunoglobulin M 11 mg/dL Abnormal 37 - 286 Immunoglobulin A 73 mg/dL 61 - 356 Iron & Iron Binding 09/01/2019 [facility] Iron 109 g/dL Normal 50-[address] [place] [address] [phone] Unsaturated Iron Binding < 252 g/dL Total Iron Binding Capacity 267 g/dL Normal 250-450 Transferrin 191 mg/dL Low 203-362 % Iron Saturation 41 % Normal 15-55 Laboratory test 09/01/2019 [facility] CRP High < 0.20 <2.[address] Sensitivity mg/[place] [address] [phone] Thyroxine 6.25 g/dL Normal 6.09-12.23 TSH (Thyroid [...] g/mL 0.66-1.10 26 Laboratory test finding 08/19/2019 [facility] Zinc Serum < pending> [place] [address] [phone] Vitamin D Total 25(Oh) <pending> Vitamin B12 And Folate 08/19/2019 [facility] Vitamin B12 < pending> Serum [place], [place] [id number] [phone] Folic Acid (Folate) <pending> Thyroid Panel 08/19/2019 [facility] Free T4 (Free <pending> Thyroxine) [place] [address] [phone] Thyroxine <pending> TSH (Thyroid Stim Horm) <pending> Laboratory test finding 08/19/2019 [facility] T3 Free <pending> [place] [address] [phone] T3 Reverse <pending> T3 Total <pending> Laboratory test 08/19/2019 [facility] Insulin Level <pending> [place] [address] [phone] Laboratory test 08/19/2019 [facility] Hemoglobin A1c <pending> finding (Glyco HGB) [place] [address] [phone] Homocysteine <pending> Laboratory test 08/19/2019 [facility] Copper, Serum <pending> [place] [address] [phone] Ferritin <pending> Laboratory test 08/19/2019 [facility] CRP High Sensitivity < pending> [place] [address] [phone] Anti-Thyroid 08/19/2019 [facility] Thyroperoxidase AB <pending> [place] [address] [phone] Thyroglobulin AB <pending> Laboratory 07/22/2019 [facility] TSH (Thyroid 1.16 Normal 0.34 -5.[address] Stim Horm) mcIU/[place] [address] [phone] 1 The homocysteine concentration is elevated in [...] developed and its performance characteristics determined by [facility] in a manner consistent with CLIA requirements. This test has not been cleared or approved by the U.S. Food and Drug Administration. Test Performed by: [facility] - [address] [address] Bulb Sorter: Jesse Lopez M.D. Ph.D.; CLIA# [id number] 2 RESULT: 02:01,04:01 REFERENCE VALUE Not Applicable 3 RESULT: 03:03,04:02 DQ Serologic Equivalent: 9,4 REFERENCE VALUE Not Applicable 4 The absence of HLA celiac permissive genes would make the presence of celiac disease unlikely. ADDITIONAL INFORMATION Method: Molecular typing of HLA antigens performed using reverse SSOP and/or SSP methods, reported as serological equivalents and low to medium resolution molecular values. Test Performed by: [facility] - [address] [address] Bulb Sorter: Jesse Lopez M.D. Ph.D.; CLIA# [id number] 5 ADDITIONAL INFORMATION This test was developed and its performance characteristics determined by [facility] in a manner consistent with CLIA requirements. This test has not been cleared or approved by the U.S. Food and Drug Administration. Test Performed by: [facility] [employer] [place] [employer] [address] [place] [address] Bulb Sorter: Jesse Lopez M.D. Ph.D.; CLIA# [id number] 6 ADDITIONAL INFORMATION This test was developed and its performance characteristics determined by [facility] in a manner consistent with CLIA requirements. This test has not been cleared or approved by the U.S. Food and Drug Administration. 7 ADDITIONAL INFORMATION Testing performed by Inductively Coupled Plasma-Mass Spectrometry (ICP-MS). This test was developed and its performance characteristics determined by [facility] in a manner consistent with CLIA requirements. This test has not been cleared or approved by the U.S. Food and Drug Administration. 8 ADDITIONAL INFORMATION This test was developed and its performance characteristics determined by [facility] in a manner consistent with CLIA requirements. This test has not been cleared or approved by the U.S. Food and Drug Administration. 9 ADDITIONAL INFORMATION This test was developed and its performance characteristics determined by [facility] in a manner consistent with CLIA requirements. This test has not been cleared or approved by the U.S. Food and Drug Administration. [address] 11 Test Performed by: [facility] [employer] - [address] [address] Bulb Sorter: Jesse Lopez M.D. Ph.D.; CLIA# [id number] 12 REFERENCE VALUE <20.0 (Negative) Test Performed by: [facility] [place] [address] Bulb Sorter: Jesse Lopez M.D. Ph.D.; CLIA# [id number] 13 REFERENCE VALUE <20.0 (Negative) 14 Because [...] REFERENCE VALUE <6.0 (Negative) Test Performed by: [place] [address] Bulb Sorter: Jesse Lopez M.D. Ph.D.; CLIA# [id number] 21 Test Performed by: [place] [address] Bulb Sorter: Jesse Lopez M.D. Ph.D.; CLIA# [id number] 22 Normal Range 180 to 914 Indeterminate [...] in selective patients <6.0%. Please refer to [employer] diabetic care guidelines for further information. 25 ADDITIONAL INFORMATION This test was developed and its performance characteristics determined by [facility] in a manner consistent with CLIA requirements. This test has not been cleared or approved by the U.S. Food and Drug Administration. Test Performed by: [facility] [place] [address] Bulb Sorter: Jesse Lopez M.D. Ph.D.; CLIA# [id number] 26 ADDITIONAL INFORMATION This test was developed and its performance characteristics determined by [facility] in a manner consistent with CLIA requirements. This test has not been cleared or approved by the U.S. Food and Drug Administration. Test Performed by: [facility] [address] [place] [address] Bulb Sorter: Jesse Lopez M.D. Ph.D.; [facility]# [id number] Procedures Date Code Description Status 02/13/2019 [id number] Mammogram Completed Medical Devices Description No Information Available Encounters Type Date Location Provider Dx Diagnosis Office Visit 11/05/2019 [facility] Patti Freeman, N92.5 Other specified 9:00a [facility] DEVELOPMENTAL EDUCATION INSTRUCTOR-Cde irregular menstruation D68.51 Activated protein C resistance Office Visit 09/29/2019 11:30a [facility] Patti Freeman, N92.5 Other specified [facility] DEVELOPMENTAL EDUCATION INSTRUCTOR-Cde irregular menstruation R93.89 Abnormal findings on dx imaging of oth body structures Office Visit 09/16/2019 9:00a 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 Bailey Vázquez, R53.83 Other fatigue [facility] AUTOMOTIVE DETAILER K58.2 Mixed irritable bowel syndrome G89.4 Chronic pain syndrome F41.8 Other specified anxiety disorders Office Visit 08/13/2019 8:00a [facility] Rand Monreal, R10.31 Right lower [facility] N.P. quadrant pain N83.202 Unspecified ovarian cyst, left side Office Visit 08/05/2019 8:30a Surgical Ree Vallejo, N63.12 Unspecified lump [facility] in the right breast, upper inner quadrant N64.4 Mastodynia Office Visit 07/22/2019 8:00a [facility] Rand Monreal, N92.5 Other specified [facility] N.P. irregular menstruation Assessments Date Code Description Provider 11/05/2019 N92.5 Other specified irregular menstruation EDISON PatelP- Cde 11/05/2019 D68.51 Activated protein C resistance Patti Freeman DEVELOPMENTAL EDUCATION INSTRUCTOR-Cde 10/30/2019 R53.83 Other fatigue aBiley Vázquez NP 10/30/2019 E55.9 Vitamin D deficiency, unspecified Bailey Vázquez AUTOMOTIVE DETAILER 10/30/2019 N92.5 Other specified irregular menstruation Bailey Vázquez, AUTOMOTIVE DETAILER 10/30/2019 D51.9 Vitamin B12 deficiency anemia, unspecified Bailey Vázquez , AUTOMOTIVE DETAILER 10/28/2019 R53.83 Other fatigue Bailey Vázquez, AUTOMOTIVE DETAILER 10/28/2019 E55.9 Vitamin D deficiency, unspecified Bailey Vázquez, AUTOMOTIVE DETAILER 10/28/2019 N92.5 Other specified irregular menstruation Bailey Vázquez, AUTOMOTIVE DETAILER 10/28/2019 D51.9 Vitamin B12 deficiency anemia, unspecified Bailey Vázquez , AUTOMOTIVE DETAILER 09/29/2019 N92.5 Other specified irregular menstruation Patti Pete [facility]- e 09/29/2019 R93.89 Abnormal findings on diagnostic imaging of [facility] other specified body structures 09/16/2019 R53.83 Other fatigue Bailey Vázquez, AUTOMOTIVE DETAILER 09/16/2019 N92.5 Other specified irregular menstruation Bailey Vázquez, AUTOMOTIVE DETAILER 09/16/2019 D68.51 Activated protein C resistance Bailey Vázquez, AUTOMOTIVE DETAILER 09/16/2019 E55.9 Vitamin D deficiency, unspecified Bailey Vázquez, AUTOMOTIVE DETAILER 09/16/2019 E53.8 Deficiency of other specified B group Bailey Vázquez, AUTOMOTIVE DETAILER vitamins 09/16/2019 Z71.6 Tobacco abuse counseling Bailey Vázquez, AUTOMOTIVE DETAILER 08/19/2019 R53.83 Other fatigue Bailey Vázquez, AUTOMOTIVE DETAILER 08/19/2019 K58.2 Mixed irritable bowel syndrome Bailey Vázquez, AUTOMOTIVE DETAILER 08/19/2019 G89.4 Chronic pain syndrome Bailey Vázquez, AUTOMOTIVE DETAILER 08/19/2019 F41.8 Other specified anxiety disorders Bailey Vázquez, AUTOMOTIVE DETAILER 08/13/2019 R10.31 Right lower quadrant pain Rand Monreal, N.P. 08/13/2019 N83.202 Unspecified ovarian cyst, left side Rand Monreal, N.P. 08/05/2019 N63.12 Unspecified lump in the right breast, upper Ree Vallejo MD inner quadrant 08/05/2019 N64.4 Mastodynia Ree Vallejo MD 07/22/2019 N92.5 Other specified irregular menstruation Rand Monreal, N.P. Plan of Treatment Future Appointment(s):11/26/2019 11:00 am - Bailey Vázquez NP at [facility]12/19/2019 1:30 pm - Cayetano Molina MD at [facility]11/05/2019 - JOSE ROBERTO Patel-CdeN92.5 Other specified irregular menstruationFollow up:Consult with Dr Molina regarding hysterectomy.D68.51 Activated protein C resistance Functional Status Description No Information Available Mental Status Description No Information Available Referrals Refer to Reason for Referral Status Appt Date Levon Yeager M.D. Created [address] [place] [address] [phone]
--- OUTSIDE RECORDS SUMMARY | 2019-12-01 20:32 | XMS REPORT | Continuity of Care Document ---
:1990 External Reference #:[id number] Author Name Bailey Vázquez NP (transmitted by agent of provider December) Address [address], [place] [address] Care Team Providers Name Role Phone Meryl Cadena PA - Medical Care Team Information Pharmacy Sales Assistant [phone] Problems Active Problems Provider Date Partial seizure [...] Molina MD 09/17/2019 1.25mg mouth once weekly (12609 Ut) Capsules for 8 weeks Magnesium-Oxide Take [...] mouth every Unknown Capsules day History Medications F96-Ddgnuk 1 by mouth 30units D51.9 Cayetano Molina MD 09/16/2019 - 1mg every day Unknown Chewtabs Vitamin D3 Ultra once a week for 8tabs E55.9 Cayetano Molina MD 09/16/2019 - Potency 8 weeks 09/17/2019 1.25mg (61835 Ut) Tablets Magnesium Glycinate 300 mg daily [...] Result H/L Range Note Laboratory test 09/01/2019 [facility] Homocysteine 18 mcmol/L Abnormal 1 finding [address] [place] [address] [phone] Celiac Hla 09/01/2019 [facility] Hla-Dqa1 SEE BELOW 2 [address] [place] [address] [phone] Hla-DQB1 SEE BELOW 3 Celiac Gene Pairs Present? No Celiac Gene Interpretation See Comment 4 Laboratory test 09/01/2019 [facility] T3 Reverse 17 ng/dL 10- 24 5 finding [address] [place] [address] [phone] Heavy Metal Blool 09/01/2019 [facility] Arsenic <1 ng/mL 0- 12 6 [address] [place] [address] [phone] Lead <1.0 g/dL 0.0-4.9 7 Mercury <1 ng/mL 0-9 8 Cadmium 1.0 ng/mL 0.0-4.[address] [place] [address] Guardian First Name ELVIN Perkins Guardian Last Name CHOLO Venous/Capillary Heavy Metals Venous Patient Race WHITE Submitting Laboratory 11 Gliadin (Deamidated) 09/01/2019 [facility] Gliadin IgG <10.0 U 12 Igg/Iga AB [address] [place] [address] [phone] Gliadin IgA <10.0 U 13 CBC Auto 09/01/2019 [facility] White Blood 4.1 10^3/uL Normal 3.5-10.[address] [place] [address] [phone] Red Blood Count 4.33 10^6/uL Normal 3.70-4.87 [...] Blood Cells % 0.0 Comp Metabolic 09/01/2019 [facility] Sodium 139 mmol/L Normal 135-[address] [place] [address] [phone] Potassium 3.9 mmol/L Normal 3.5-5.0 Chloride 109 [...] Egfr 99.8 >60 14 Lipid Profile 09/01/2019 [facility] Triglycerides 67 mg/dL 15 (Trig/Chol/HDL) [address] [place] [address] [phone] Cholesterol 158 mg/dL 16 HDL Cholesterol 44.2 mg/dL 17 LDL Cholesterol 100 mg/dL 18 Transglutaminase Igg 09/01/2019 [facility] Tissue <1.2 19 & Iga [address] Transglutaminase IgA U/[place] [address] Ab [phone] Tissue Transglutaminase IgG Ab <1.2 U/mL 20 Immunoglobulins 09/01/2019 [facility] Immunoglobulin G 595 Abnormal 767 - 21 Serum Quant [address] mg/dL [address] [place] [address] [phone] Immunoglobulin M 11 mg/dL Abnormal 37 - 286 Immunoglobulin A 73 mg/dL 61 - 356 Iron & Iron Binding 09/01/2019 [facility] Iron 109 g/dL Normal 50-[address] [place] [address] [phone] Unsaturated Iron Binding < 252 g/dL Total Iron Binding Capacity 267 g/dL Normal 250-450 Transferrin 191 mg/dL Low 203-362 % Iron Saturation 41 % Normal 15-55 Laboratory test 09/01/2019 [facility] CRP High < 0.20 <2.[address] Sensitivity mg/[place] [address] [phone] Thyroxine 6.25 g/dL Normal 6.09-12.23 TSH (Thyroid [...] g/mL 0.66-1.10 26 Laboratory test finding 08/19/2019 [facility] Zinc Serum < pending> [place] [address] [phone] Vitamin D Total 25(Oh) <pending> Vitamin B12 And Folate 08/19/2019 [facility] Vitamin B12 < pending> [place] [address] [phone] Folic Acid (Folate) <pending> Thyroid Panel 08/19/2019 [facility] Free T4 (Free <pending> Thyroxine) [place] [address] [phone] Thyroxine <pending> TSH (Thyroid Stim Horm) <pending> Laboratory test finding 08/19/2019 [facility] T3 Free <pending> [place] [address] [phone] T3 Reverse <pending> T3 Total <pending> Laboratory test 08/19/2019 [facility] Insulin Level <pending> [place] [address] [phone] Laboratory test 08/19/2019 [facility] Hemoglobin A1c <pending> finding (Glyco HGB) [place] [address] [phone] Homocysteine <pending> Laboratory test 08/19/2019 [facility] Copper, Serum <pending> [place] [address] [phone] Ferritin <pending> Laboratory test 08/19/2019 [facility] CRP High Sensitivity < pending> [place] [address] [phone] Anti-Thyroid 08/19/2019 [facility] Thyroperoxidase AB <pending> [place] [address] [phone] Thyroglobulin AB <pending> Laboratory 07/22/2019 [facility] TSH (Thyroid 1.16 Normal 0.34 -5.60 test finding Stim Horm) mcIU/[place] [address] [phone] 1 The homocysteine concentration is elevated in [...] developed and its performance characteristics determined by [facility] in a manner consistent with CLIA requirements. This test has not been cleared or approved by the U.S. Food and Drug Administration. Test Performed by: [facility] - [address] [address] [employer] Hopper: Jesse Lopez M.D. Ph.D.; CLIA# [id number] 2 RESULT: 02:01,04:01 REFERENCE VALUE Not Applicable 3 RESULT: 03:03,04:02 DQ Serologic Equivalent: 9,4 REFERENCE VALUE Not Applicable 4 The absence of HLA celiac permissive genes would make the presence of celiac disease unlikely. ADDITIONAL INFORMATION Method: Molecular typing of HLA antigens performed using reverse SSOP and/or SSP methods, reported as serological equivalents and low to medium resolution molecular values. Test Performed by: [facility] - [address] [address] [employer]: Jesse Lopez M.D. Ph.D.; CLIA# [id number] 5 ADDITIONAL INFORMATION This test was developed and its performance characteristics determined by [facility] in a manner consistent with CLIA requirements. This test has not been cleared or approved by the U.S. Food and Drug Administration. Test Performed by: [facility] [place] [address] [employer] Hopper: Jesse Lopez M.D. Ph.D.; CLIA# [id number] 6 ADDITIONAL INFORMATION This test was developed and its performance characteristics determined by [facility] in a manner consistent with CLIA requirements. This test has not been cleared or approved by the U.S. Food and Drug Administration. 7 ADDITIONAL INFORMATION Testing performed by Inductively Coupled Plasma-Mass Spectrometry (ICP-MS). This test was developed and its performance characteristics determined by [facility] in a manner consistent with CLIA requirements. This test has not been cleared or approved by the U.S. Food and Drug Administration. 8 ADDITIONAL INFORMATION This test was developed and its performance characteristics determined by [facility] in a manner consistent with CLIA requirements. This test has not been cleared or approved by the U.S. Food and Drug Administration. 9 ADDITIONAL INFORMATION This test was developed and its performance characteristics determined by [facility] in a manner consistent with CLIA requirements. This test has not been cleared or approved by the U.S. Food and Drug Administration. [address] 11 Test Performed by: [facility] [place] [address] [employer] Hopper: Jesse Lopez M.D. Ph.D.; CLIA# [id number] 12 REFERENCE VALUE <20.0 (Negative) Test Performed by: [facility] - [facility] [address] [place] [address] [employer]: Jesse Lopez M.D. Ph.D.; CLIA# [id number] 13 REFERENCE VALUE <20.0 (Negative) 14 Because [...] REFERENCE VALUE <6.0 (Negative) Test Performed by: [place] [address] [employer]: Jesse Lopez M.D. Ph.D.; CLIA# [id number] 21 Test Performed by: [place] [address] [employer]: Jesse Lopez M.D. Ph.D.; CLIA# [id number] 22 Normal Range 180 to 914 Indeterminate [...] in selective patients <6.0%. Please refer to [place] [employer] diabetic care guidelines for further information. 25 ADDITIONAL INFORMATION This test was developed and its performance characteristics determined by [facility] in a manner consistent with CLIA requirements. This test has not been cleared or approved by the U.S. Food and Drug Administration. Test Performed by: [facility] [place] [address] [employer] Hopper: Jesse Lopez M.D. Ph.D.; CLIA# [id number] 26 ADDITIONAL INFORMATION This test was developed and its performance characteristics determined by [facility] in a manner consistent with CLIA requirements. This test has not been cleared or approved by the U.S. Food and Drug Administration. Test Performed by: [facility] - [address], [place] [address] [employer]pper: Jesse Lopez M.D. 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 D68.51 Activated protein C resistance Office Visit 10/30/2019 9:15a [facility] Gurpreet, R53.83 Other fatigue [facility] [employer] E55.9 Vitamin D deficiency, unspecified N92.5 Other specified irregular menstruation D51.9 Vitamin B12 deficiency anemia, unspecified Office Visit 09/29/2019 11:30a [facility] Patti Freeman, N92.5 Other specified [facility] STRESS ENGINEER-darryl irregular menstruation R93.89 Abnormal findings on dx imaging of oth body structures Office Visit [facility]/16[facility]2019 [facility], R53.83 Other fatigue [facility] [employer] N92.5 Other specified irregular menstruation D68.51 Activated protein C resistance E55.9 Vitamin D deficiency, unspecified E53.8 Deficiency of other specified B group vitamins Z71.6 Tobacco abuse counseling Office Visit 08/19/2019 8:00a [facility] Bailey Burch, R53.83 Other fatigue [facility] [employer] K58.2 Mixed irritable bowel syndrome G89.4 Chronic pain syndrome F41.8 Other specified anxiety disorders Office Visit 08/13/2019 8:00a [facility] Rand Monreal, R10.31 Right lower [facility] N.P. quadrant pain N83.202 Unspecified ovarian cyst, left side Office Visit 08/05/2019 8:30a Surgical Ree Vallejo N63.12 Unspecified lump [facility] in the right breast, upper inner quadrant N64.4 Mastodynia Office Visit 07/22/2019 8:00a [facility] Rand Monreal, N92.5 Other specified [facility] N.P. irregular menstruation Assessments Date Code Description Provider 11/05/2019 N92.5 Other specified irregular menstruation JOSE ROBERTO Patel- Cde 11/05/2019 D68.51 Activated protein C resistance Patti Freeman, [facility]-Cde 10/30/2019 R53.83 Other fatigue Bailey Vázquez, [employer] 10/30/2019 E55.9 Vitamin D deficiency, unspecified Bailey Gurpreet, [employer] 10/30/2019 N92.5 Other specified irregular menstruation Bailey Vázquez, [employer] 10/30/2019 D51.9 Vitamin B12 deficiency anemia, unspecified Bailey Vázquez , [employer] 10/28/2019 R53.83 Other fatigue Bailey Vázquez, [employer] 10/28/2019 E55.9 Vitamin D deficiency, unspecified Bailey Gurpreet, [employer] 10/28/2019 N92.5 Other specified irregular menstruation Bailey Vázquez, [employer] 10/28/2019 D51.9 Vitamin B12 deficiency anemia, unspecified Bailey Burch , [employer] 09/29/2019 N92.5 Other specified irregular menstruation Patti Freeman, [facility]- Cde 09/29/2019 R93.89 Abnormal findings on diagnostic imaging of Patti Freeman, [facility] other specified body structures 09/16/2019 R53.83 Other fatigue Bailey Vázquez, [employer] 09/16/2019 N92.5 Other specified irregular menstruation Bailey Vázquez, [employer] 09/16/2019 D68.51 Activated protein C resistance Bailey Vázquez, [employer] 09/16/2019 E55.9 Vitamin D deficiency, unspecified Bailey Vázquez, [employer] 09/16/2019 E53.8 Deficiency of other specified B group Bailey Vázquez, [employer] vitamins 09/16/2019 Z71.6 Tobacco abuse counseling Bailey Vázquez, [employer] 08/19/2019 R53.83 Other fatigue Bailey Vázquez, [employer] 08/19/2019 K58.2 Mixed irritable bowel syndrome Bailey Vázquez, [employer] 08/19/2019 G89.4 Chronic pain syndrome Bailey Vázquez, [employer] 08/19/2019 F41.8 Other specified anxiety disorders Bailey Vázquez, [employer] 08/13/2019 R10.31 Right lower quadrant pain Rand Monreal, N.P. 08/13/2019 N83.202 Unspecified ovarian cyst, left side Rand Monreal, N.P. 08/05/2019 N63.12 Unspecified lump in the right breast, upper Ree Vallejo MD inner quadrant 08/05/2019 N64.4 Mastodynia Ree Vallejo MD 07/22/2019 N92.5 Other specified irregular menstruation Rand Monreal N.P. Plan of Treatment Future Appointment(s):12/01/2019 3:00 pm - Giovanni Parrish M.D. at [facility]12/19/2019 1:30 pm - Cayetano Molina MD at [facility]11/05/2019 - EDISON PatelP-CdeN92.5 Other specified irregular menstruationFollow up:Consult with Dr Molina regarding hysterectomy.D68.51 Activated protein C resistance Functional Status Description No Information Available Mental Status Description No Information Available Referrals Refer to Reason for Referral Status Appt Date Levon Yeager M.D. [facility] [address] [place] [address] [phone]
[2019-12-01] MEDS ORDERED: NS 0.9% 1000 ML** 1,000 ML IV ONE (20:38)
[2019-12-01] MEDS ORDERED: Ondansetron INJ* 2 MG/ML VIAL IV ONE (20:38)
[2019-12-01] MEDS ORDERED: Morphine 4 MG/ML VIAL (1 ml) 4 MG/ML VIAL IV ONE (20:38)
[2019-12-01 20:50] LABS: ABS Eosinophils 0.3 10^3/ul (0-0.6); ABS Lymphocytes 1.9 10^3/ul (1.0-4.8); ABS Monocytes 0.5 10^3/ul (0-0.8); ABS Neutrophils 3.4 10^3/ul (1.5-7.7); Eosinophil % 4.7 %; Hematocrit 40 % (35-47); Hemoglobin 14.1 g/dL (12.0-16.0); Mean Corpuscular HGB Conc 35 g/dL (31-36); Mean Corpuscular Hemoglobin 32 pg (27-31); Mean Corpuscular Volume 91 fL (80-97); Mean Platelet Volume 8.9 fL (7.4-10.4); Platelet Count 178 10^3/uL (150-450); Red Blood Count 4.39 10^6 /uL (3.70-4.87); Red Cell Distribution Width 13 % (10-15); White Blood Count 6.1 10^3/uL (3.5-10.8)
[2019-12-01 21:11] LABS: ALT 14 U/L (7-52); AST 12 U/L (13-39); Albumin 4.6 g/dL (3.2-5.2); Albumin/Globulin Ratio 2.2 (1-3); Alkaline Phosphatase 59 U/L (34-104); Anion Gap 7 mmol/L (2-11); BUN/Creatinine Ratio 13.4 (8-20); Blood Urea Nitrogen 13 mg/dL (6-24); C Reactive Protein < 1.00 mg/L (<8.01); CO2 Carbon Dioxide 24 mmol/L (22-32); Calcium 9.5 mg/dL (8.6-10.3); Chloride 107 mmol/L (101-111); EGFR African American 82.7 (>60); EGFR Non-African American 68.4 (>60); Globulin 2.1 g/dL (2-4); Glucose 116 mg/dL (70-100); Potassium 3.4 mmol/L (3.5-5.0); Sodium 138 mmol/L (135-145); Total Protein 6.7 g/dL (6.4-8.9)
[2019-12-01 21:19] LABS: HCG Pregnancy < 0.60 mIU/mL
[2019-12-01] MEDS ORDERED: Ketorolac INJ* 30 MG/ML 1 ML VIAL IV ONE (21:56)
[2019-12-01 22:45] VITALS: BP 106/60
== END 2019-12-01 22:44 | disposition home or self-care (01) ==
LOC: ED 20:23
DX: N83.201 Unspecified ovarian cyst, right side (principal); R10.9 Unspecified abdominal pain; M54.9 Dorsalgia, unspecified; F17.210 Nicotine dependence, cigarettes, uncomplicated; Z86.79 Personal history of other diseases of the circulatory system; Z79.3 Long term (current) use of hormonal contraceptives; Z88.8 Allergy status to other drugs, medicaments and biological substances; Z88.0 Allergy status to penicillin; Z98.51 Tubal ligation status
CPT/HCPCS: 36415; 76705; 76830; 80053; 83605; 83690; 84702; 85025; 86140; 96361; 96374; 96375; 99283; J1885; J2270; J2405